=== PATIENT | female | born 1970 | race Caucasian/White ===

== ENCOUNTER 2020-11-01 01:35 | Inpatient (IN) | payer BC, SELFPAY ==
[2020-11-01] VITALS (14 sets, daily range): BP systolic 163–213; BP diastolic 87–105; PULSE 87–99; RESP 16–18; TEMP 36.2–37; O2SAT 93–100; BMI 45.1
--- NOTE | ~2020-11-01 | XR_ITS ---
EXAMINATION: XR abdomen NG/feed tube insert DATE: 11/01/2020 04:07 INDICATION: Nasogastric tube placement. TECHNIQUE: An upright view of the abdomen was obtained. COMPARISON: CT abdomen and pelvis 11/01/2020 FINDINGS: The lower abdomen is excluded. There is dilated small bowel in the midabdomen. The colon is decompressed. The nasogastric tube tip is in the stomach. IMPRESSION: 1. Nasogastric tube tip in the stomach. 2. Small bowel obstruction. Reviewed, dictated and finalized at location A. EN CLEANER
--- NOTE | ~2020-11-01 | XR_ITS ---
EXAMINATION: XR abdomen/kub 1V DATE: 11/02/2020 07:57 INDICATION: Small bowel obstruction. TECHNIQUE: A supine view of the abdomen on 2 radiographs was obtained. COMPARISON: CT abdomen and pelvis 11/01/2020 FINDINGS: There are no gas-filled dilated loops of bowel. There is a moderate volume of stool in the colon. The nasogastric tube tip is in the stomach. IMPRESSION: 1. Nonobstructive bowel gas pattern. Reviewed, dictated and finalized at location A. ERN ROOM OPERATOR
--- NOTE | ~2020-11-01 | XR_ITS ---
XR abdomen/kub 1V DATE: 11/04/2020 06:23 INDICATION: Small bowel obstruction TECHNIQUE: Portable supine AP views on September 03, 2021 at 0547 hours COMPARISON: November 03, 2020 upper gastrointestinal series with small bowel series FINDINGS: Radiographic contrast material is noted within the colon. No bowel dilatation or obstructio n is evident. IMPRESSION: No evidence of bowel obstruction Reviewed, dictated and finalized at Location A. Reviewed, dictated and finalized at location A. Y INTERVENTION SCHOOL PSYCHOLOGIST
--- NOTE | ~2020-11-01 | CT_ITS ---
EXAMINATION: CT abdomen pelvis w con DATE: 11/01/2020 03:08 INDICATION: Right upper quadrant abdominal pain. TECHNIQUE: Computed tomography (CT) of the abdomen and pelvis was performed with 100 mL Omnipaque 350 intravenous contrast. Automated exposure control and iterative reconstruction technique were employe d. The dose-length product was 1519.80 mGy-cm. COMPARISON: None. FINDINGS: The visualized portions of the lung bases demonstrate mild atelectasis. No pleural effusion . The heart size is normal. No pericardial effusion. The liver, gallbladder, spleen, pancreas, adrena l glands, and left kidney are normal. There is a 2 mm stone in right kidney. There is diverticulosis of the colon without evidence of diverticulitis. The appendix is normal. There is dilated small bowel with transition point in the lower abdomen is midline. There is a small sliding hiatal hernia. There are no pathologically enlarged lymph nodes. There is trace pelvic ascites. 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 There is moderate thoracic spondylosis and mild lumbar spondylosis. IMPRESSION: 1. Small bowel obstruction with transition point in the lower abdomen at the midline. 2. Small sliding hiatal hernia. Reviewed, dictated and finalized at location A. AU MATIC OPERATOR IMPRESSION: 1. Small bowel obstruction with transition point in the lower abdomen at the mi dline. 2. Small sliding hiatal hernia.
--- NOTE | ~2020-11-01 | XR_ITS ---
. XR UGI water soluble w sbs DATE: 11/03/2020 10:02 INDICATION: Abdominal pain, small bowel obstruction TECHNIQUE: Single contrast upper gastrointestinal series. Serial radiographs of the small bowel. Spot images of the terminal. 0.7 minutes fluoroscopy time DAP: 64.743 COMPARISON: November 01, 2020 CT abdomen pelvis November 03, 2020 KUB FINDINGS: 350 cc Omnipaque contrast material was administered by syringe through the existing nasogas tric tube. By means of administration of the contrast material through an NG tube, the esophagus is not evaluate d. No stricture, mucosal fold thickening, ulceration or intraluminal mass lesion of the stomach is evide nt. The duodenum appears normal. No ulcer is evident. No diverticulum is noted. There is normal transit of contrast material through the small bowel, without evidence of obstruction . Contrast material reaches the colon within 30 minutes. No dilatation, stricture, ulceration or intr aluminal mass lesion is evident. Terminal ileum appears normal. IMPRESSION: No small bowel obstruction Reviewed, dictated and finalized at Location A. Reviewed, dictated and finalized at location A. TABLE OPERATOR IMPRESSION: No small bowel obstruction
--- NOTE | ~2020-11-01 | XR_ITS ---
XR abdomen NG/feed tube rechec INDICATION: Evaluate NG tube position. TECHNIQUE: Limited KUB perform for evaluating NG tube . COMPARISON: 11/01/2020 FINDINGS: NG tube tip in the stomach. Visualized bowel gas pattern is unremarkable. IMPRESSION: 1: NG tube tip in the stomach. Reviewed, dictated and finalized at location B. CONSTRUCTION
--- NOTE | ~2020-11-01 | XR_ITS ---
XR abdomen/kub 1V DATE: 11/03/2020 06:12 INDICATION: Small bowel obstruction TECHNIQUE: Portable supine AP views on November 03, 2020 at 0601 and 0602 hours COMPARISON: November 02, 2020 KUB FINDINGS: NG tube tip overlies the distal stomach. Nonspecific bowel gas pattern without apparent obs truction. Faint calcification overlying the lower pole the right kidney, likely due to the calculus at the lowe r pole the right kidney evident on November 01, 2020 CT abdomen pelvis examination. No visceromegaly or significant abnormal calcification is evident otherwise. IMPRESSION: Nonspecific bowel gas pattern, without apparent obstruction NG tube in distal stomach Small lower pole right renal calcified calculus Reviewed, dictated and finalized at Location A. Reviewed, dictated and finalized at location A. R MAKER
--- NOTE | 2020-11-01 01:39 | ED.ABDPAIN ---
HPI - Abdominal Pain General Chief Complaint: Abdominal Pain Stated Complaint: abd pain Time Seen by Provider: 11/01/20 01:40 History of Present Illness HPI narrative: RUQ abdominal pain since about 1730 yesterday. Progressively worse since that time. Radiates to umbilicus. Associated with 1 episode of vomiting. No prior episodes. Strong family h/o gall bladder disease. No fever, chills, CP, SOB, cough, congestion. Related Data Home Medications Medication Instructions Recorded Confirmed No Home Medications 11/01/20 11/01/20 Allergies Allergy/AdvReac Type Severity Reaction Status Date / Time adhesive AdvReac Unknown RASH Verified 11/01/20 05:16 Review of Systems Review of Systems: All systems reviewed & are unremarkable except as noted in HPI and below Constitutional: Constitutional: Denies chills, Denies fever(s) and Denies weakness Eyes: Eyes: Reports no additional eye complaints ENT: Reports system reviewed and no additional complaints, except as documented Cardiovascular: Cardiovascular: Denies chest pain Respiratory: Respiratory: Denies dyspnea Gastrointestinal: Gastrointestinal: Reports abdominal pain, Denies constipation, Denies diarrhea, Reports nausea and Reports vomiting Genitourinary: Genitourinary: Denies hematuria and Denies dysuria Neurologic: Denies dizziness and Denies weakness PMF Surgical History Surgical History (Updated 11/01/20 @ 01:54 by Campbell Jaimes MD) Previous section Family History Family History Father Hypertension Family history of chronic obstructive pulmonary disease Family history of diabetes mellitus in first degree relative Family history of heart disease in male family member before age 55 Mother Cerebrovascular accident Family history of heart disease in male family member before age 55 Other Family history of allergic disorder Social History Social History Smoking status: Never smoker Alcohol intake: former Drinks per week: 1 Substance use: never Gender identity (if verbalized by the patient): Female Sexual Orientation (if Verbalized by the Patient): Straight or Heterosexual Spiritual care concerns: No Exam Const: General: no acute distress, alert and uncomfortable Nutritional Appearance: obese Orientation/consciousness: patient oriented x3 HENMT: Head: normal to inspection Neck: Neck: normal visual inspection Resp: Effort & Inspection: normal respiratory effort Auscultation: clear to auscultation bilaterally Cardio: Rate: regular rate Rhythm: regular rhythm GI: Inspection: non-distended GI Palp: Yes Soft to palpation and No Tenderness to palpation present (GI) Skin: General skin exam: normal color Neuro: General: patient oriented x3, moves all extremities, no focal motor deficits and CN's II-XI intact bilaterally Speech: normal speech Gait exam (Neuro): Normal gait present Extrem: General: normal to inspection Course Vital Signs Vital signs: Vital Signs Temperature 36.9 C 11/01/20 01:42 Pulse Rate 99 11/01/20 01:42 Respiratory Rate 16 11/01/20 01:42 Blood Pressure 213/105 H 11/01/20 01:42 Pulse Oximetry 97 11/01/20 01:42 Temperature 37.0 C 11/01/20 04:40 Pulse Rate 95 11/01/20 04:40 Respiratory Rate 18 11/01/20 04:40 Blood Pressure 166/88 H 11/01/20 04:40 Pulse Oximetry 99 11/01/20 04:40 MDM - Abdominal Pain Differential Diagnosis Differential diagnosis: Likely abdominal pain, acute appendicitis, constipation, diverticulitis, pancreatitis, small bowel obstruction and other (cholecystitis) Medical Records Attestation: I reviewed the patient's medical records. Lab Data Attestation: I reviewed the patient's lab results. Result diagrams: 11/01/20 02:24 11/01/20 02:24 Labs: Lab Results 11/01/20 11/01/20 11/01/20 Range/Units 02:24 02:24 02:24 WBC 9.5 (4.5-
[2020-11-01] MEDS: ONDANSETRON INJ 4 MG/2 ML VIAL IV PUSH (02:02)
[2020-11-01] MEDS: fentaNYL CITRATE INJ (*CRX) 100 MCG/2 ML VIAL 50 MCG IV PUSH (02:02)
[2020-11-01 02:34] LABS: Basophils Absolute Auto 0.1 K/mm3 (0.0-0.1); Basophils Percent Auto 0.5 % (0.2-1.2); Eosinophils Absolute Auto 0.2 K/mm3 (0-0.3); Eosinophils Percent Auto 1.9 % (0-4.4); Hematocrit 44.1 % (37.0-47.0); Hemoglobin 14.2 g/dL (12.0-15.0); Immature Granulocyte Absolute 0.03 K/mm3 (0.00-0.031); Immature Granulocyte Percent A 0.3 % (0-0.5); Lymphocytes Absolute Auto 0.99 K/mm3 (0.9-3.2); Lymphocytes Percent Auto 10.4 % (18.3-44.2); Mean Corpuscular HGB Conc 32.2 g/dl (32-36); Mean Corpuscular Hemoglobin 29.2 pg (26-34); Mean Corpuscular Volume 90.7 fl (80-100); Mean Platelet Volume 12.4 fl (7.4-10.4); Monocytes Absolute Auto 0.6 K/mm3 (0.1-0.6); Monocytes Percent Auto 5.8 % (2.6-8.5); Neutrophils Absolute Auto 7.7 K/mm3 (1.3-6.7); Neutrophils Percent Auto 81.1 % (45.5-73.1); Platelet Count Result 168 k/mm3 (150-375); Red Blood Count 4.86 M/mm3 (4.2-5.4); Red Cell Distribution Width 14.9 % (11.5-14.5); White Blood Count 9.5 K/mm3 (4.5-10.0)
[2020-11-01 02:50] LABS: Alanine Aminotransferase 31 U/L (4-35); Albumin Level 3.7 g/dL (3.5-5.1); Alkaline Phosphatase 99 U/L (38-126); Anion Gap 0 mmol/L (8-16); Aspartate Amino Transferase 27 U/L (14-36); Bilirubin,Total 0.3 mg/dL (0.2-1.3); Blood Urea Nitrogen 13 mg/dL (7-17); Carbon Dioxide 30 mmol/L (22-30); Chloride 107 mmol/L (98-107); Estimated CRCL calculation 101 ml/min; Estimated Glomerular Filt Rate > 60; Glucose 159 mg/dL (65-105); Lipase 91 U/L (23-300); Potassium 4.3 mmol/L (3.4-5.0); Sodium 137 mmol/L (137-145)
[2020-11-01 02:54] LABS: Add Urine Microscopic? YES; Amorphous Sediment Urine Few; Appearance Urine Cloudy (Clear); Bacteria Urine Trace /hpf; Bilirubin Urine Negative (Negative); Blood Urine 1+ (Negative); Color Urine Red (Yellow); Glucose Urine UA Negative (Negative); Ketones Urine Negative (Negative); Leukocyte Esterase Ur Negative LEU/UL (Negative); Mucus Urine Rare /lpf; Nitrate Urine Negative (Negative); Protein Urine 1+ mg/dL (Negative); Specific Grav Ur 1.017 (1.001-1.035); Squamous Epithelial Cell Urine Few /hpf (Few); Urobilinogen Urine Negative mg/dL (<2.0); WBC Urine 0-3 /hpf
[2020-11-01] MEDS: MORPHINE SULFATE (*CRX) 4 MG/ML INJ IV PUSH ×4 (03:49→21:15)
--- NOTE | 2020-11-01 04:06 | PC.NURSE ---
Advanced NG to 55 instead of 50.
--- NOTE | 2020-11-01 04:40 | ADMGEN ---
This patient, Ginger Delgado, was admitted to [facility] Surg Room 313-01. Patient/family oriented to hospital policies and general routines including ID bracelet, bed and alarms, visiting hours, pain management, procedures, bathroom and other care routines, personal items, smoking policy, room service/diet, and visiting hours. Information on how to activate the Rapid Response Team has been discussed. Patient/Family are encouraged to report perceived risks to care and to ask questions if they do not understand what they are told or what they should do.
[2020-11-01] MEDS: LACTATED RINGERS 1,000 ML 125 ML IV CONT ×3 (04:43→20:05)
--- NOTE | 2020-11-01 08:58 | PM.IMHP ---
H&P: HPI History of Present Illness Date/Time: 11/01/20 08:58 Chief Complaint: Abdominal pain, vomiting Narrative: Ginger Delgado is a 50 year old female with no significant past medical history, who presented to the emergency department with complaints of abdominal pain. She reports a sudden onset of mild abdominal pain yesterday afternoon. The pain continued to worsen and became severe. She also had associated nausea with vomiting x2. Due to the unrelenting pain, she presented to the ER for further evaluation. CT scan of abdomen and pelvis showed a small bowel obstruction. Labs were unremarkable. Our service was contacted for the findings of a small bowel obstruction. She is now admitted to the hospital in this setting. An NG tube has already been placed with a KUB confirming placement. The patient is seen on the medical floor now. She reports still having some lower abdominal pain that has been improving after receiving IV analgesics. Reports her nausea has subsided. Reports an improvement in her overall bloating. She reports flatus this morning, and her last bowel movement was yesterday morning around 9:00 a.m.. It was normal for her. No other complaints at this time. Urinalysis in the ER showed gross hematuria. She denies having any hematuria, dysuria, frequency, urgency, nocturia, or flank pain. She denies having menstrual cycle. Review of Systems Review of Systems: All systems reviewed & are unremarkable except as noted in HPI and below Constitutional: Constitutional: Reports as per HPI, Denies chills, Denies fatigue, Denies fever(s), Denies headache(s) and Denies weakness Eyes: Eyes: Reports no additional eye complaints and Denies change in vision ENT: Reports system reviewed and no additional complaints, except as documented, Denies dysphagia and Denies hearing loss Cardiovascular: Cardiovascular: Reports no additional cardiovascular complaints, Denies chest pain, Denies leg edema, Denies lightheadedness and Denies radiating jaw, neck or arm pain Respiratory: Respiratory: Reports no additional respiratory complaints, Denies cough, Denies dyspnea and Denies wheezing Gastrointestinal: Gastrointestinal: Reports as per HPI, Reports no additional gastrointestinal complaints, Reports abdominal pain, Denies melena, Reports bloating (mild), Denies hematochezia, Denies change in bowel habits, Denies diarrhea, Reports nausea, Reports vomiting and Denies hematemesis Genitourinary: Genitourinary: Denies hematuria and Denies dysuria Musculoskeletal: Musculoskeletal: Reports no additional musculoskeletal complaints, Denies abnormal gait, Denies deformity, Denies joint swelling, Denies numbness and Denies tingling Integumentary/Breasts: Skin/Breast: Denies rash and Denies wounds Neurologic: Reports system reviewed and no additional complaints, except as documented, Denies abnormal gait, Denies dizziness, Denies headache(s), Denies numbness, Denies tingling and Denies weakness Psychiatric: Psychiatric: Reports no additional psychiatric complaints, Denies anxiety and Denies depression [facility] Past Medical History Medical History Obesity, morbid, BMI 40.0-49.9 Surgical History Surgical History History of dilatation and curettage History of excision of mass 2012 - Excision of RUQ abdominal wall lipoma. History of partial hysterectomy Open partial hysterectomy History of tonsillectomy History of tubal ligation Previous section x 4 Family History Family History Father Hypertension Family history of chronic obstructive pulmonary disease Family history of diabetes mellitus in first degree relative Family history of heart disease in male family member before age 55 Mother Cerebrovascular accident Family history of heart disease in male family member marcin
[2020-11-01] MEDS: ENOXAPARIN 40 MG/0.4 ML SYRINGE SUB-Q (11:48)
--- NOTE | 2020-11-01 14:07 | PM.PNGS ---
Progress Note: A&P Assessment and Plan (1) SBO (small bowel obstruction): Code(s): K56.609 - Unspecified intestinal obstruction, unspecified as to partial versus complete obstruction Status: Acute Assessment and Plan: After reviewing both her CT scan and her KUB independently this morning, it does appear she has a small bowel obstruction. The NG tube is barely in the stomach. I will go ahead and advance that another 6 in. There is very little coming out of the NG tube. She may need to have NG irrigation as well. Will start her on prophylactic dose of Lovenox as well. Continue IV fluids and get patient up out of bed today. Try to do some walking. Continue to follow daily KUBs and lab work. I explained to her that usually these do resolve with nonsurgical treatment but occasionally this does require laparotomy and adhesiolysis for correction of the small-bowel obstruction. She understands and agrees with the plan of management. (2) Obesity, morbid, BMI 40.0-49.9: Code(s): E66.01 - Morbid (severe) obesity due to excess calories Status: Chronic (3) Elevated blood pressure reading: Code(s): R03.0 - Elevated blood-pressure reading, without diagnosis of hypertension Status: Acute Assessment and Plan: 1 reading quite high but has been borderline elevated since. Probably would benefit from outpatient management of hypertension. Subjective Subjective Date/Time Seen: 11/01/20 14:07 Patient reports: still having pain, flatus, no bowel movement, nausea and vomiting Interval history: Patient is a 50-year-old woman who is had multiple C-sections as well as a tubal ligation in the past. She started having abdominal pain in the right upper quadrant that moved to the epigastrium and then down to the infraumbilical area. The pain started last night about 530. It came on very abruptly. She had a couple of episodes of vomiting. She came to the emergency room where she was noted to have some tenderness. Her white count was 9500. CT scan showed evidence of a small-bowel obstruction. NG tube has been placed but very little has come out since it was placed early this morning. She does feel less bloated and has had some flatus. No BM since yesterday. She is admitted now for evaluation and management of abdominal pain with small-bowel obstruction. Review of Systems Constitutional: Constitutional: Denies chills and Denies fever(s) Cardiovascular: Cardiovascular: Denies chest pain, Denies diaphoresis, Denies dyspnea and Denies paroxysmal nocturnal dyspnea Respiratory: Respiratory: Denies chest congestion, Denies cough and Denies dyspnea Integumentary/Breasts: Skin/Breast: Denies lesions and Denies rash Exam Const: General: comfortable, no acute distress, alert and awake; No confusion Nutritional Appearance: obese Orientation/consciousness: patient oriented x3 and No confusion GI: Inspection: distended and scar (Pfannenstiel incision scar) GI Palp: Yes Soft to palpation, Yes Tenderness to palpation present (GI) (Lower abdomen, generalized), No Guarding due to palpation present (GI), No Hernia present, No Palpable mass present and No Rebound tenderness present Auscultation: absent bowel sounds Neuro: General: patient oriented x3, no focal motor deficits and No confusion Extrem: General: no calf tenderness and no edema Psych: Affect: normal affect Insight: Good insight present (Psych) Judgement: Good judgement present (Psych) Objective Data Vital Signs Vital Signs: Vital Signs - 24 hr 11/01/20 01:42 11/01/20 02:06 11/01/20 02:15 Temperature 36.9 C Pulse Rate 99 Respiratory Rate 16 Blood Pressure 213/105 H Pulse Oximetry 97 99 97 11/01/20 02:16 11/01/20 02:21 11/01/20 02:47 Temperature Pulse Rate Respiratory Rate Blood Pressure 163/89 H Pulse Oximetry 96 98 100 11/01/20 03:14 11/01/20 03:17 11/01/20 03:30 Temperature Pulse Rate 87 Respiratory
[2020-11-01] MEDS: FAMOTIDINE 20 MG/2 ML VIAL IV PUSH (20:01)
[2020-11-02] MEDS: LACTATED RINGERS 1,000 ML 125 ML IV CONT (03:50)
[2020-11-02] MEDS: IBUPROFEN IV 800 MG/200 ML 800 MG/200 ML BAG 400 MG IVPB ×3 (04:03→23:24)
[2020-11-02 06:00] VITALS: BP 158/90; PULSE 88; RESP 20; TEMP 36.6; O2SAT 97
[2020-11-02 06:42] LABS: Hematocrit 43.1 % (37.0-47.0); Hemoglobin 13.8 g/dL (12.0-15.0); Mean Corpuscular Hemoglobin 28.6 pg (26-34); Mean Corpuscular Volume 89.2 fl (80-100); Mean Platelet Volume 12.4 fl (7.4-10.4); Platelet Count Result 171 k/mm3 (150-375); Red Blood Count 4.83 M/mm3 (4.2-5.4); Red Cell Distribution Width 14.7 % (11.5-14.5); White Blood Count 9.1 K/mm3 (4.5-10.0)
[2020-11-02 06:50] LABS: Anion Gap 5 mmol/L (8-16); Blood Urea Nitrogen 9 mg/dL (7-17); Carbon Dioxide 29 mmol/L (22-30); Chloride 104 mmol/L (98-107); Estimated CRCL calculation 104 ml/min; Estimated Glomerular Filt Rate > 60; Glucose 122 mg/dL (65-105); Potassium 3.9 mmol/L (3.4-5.0); Sodium 138 mmol/L (137-145)
[2020-11-02] MEDS: FAMOTIDINE 20 MG/2 ML VIAL IV PUSH ×2 (08:49→20:21)
[2020-11-02] MEDS: ENOXAPARIN 40 MG/0.4 ML SYRINGE SUB-Q (08:49)
--- NOTE | 2020-11-02 11:06 | PM.PNGS ---
Progress Note: A&P Assessment and Plan (1) SBO (small bowel obstruction): Code(s): K56.609 - Unspecified intestinal obstruction, unspecified as to partial versus complete obstruction Status: Acute Assessment and Plan: improving significantly radiographically. Pain is much better but not gone. No flatus or BM yesterday or today. Less distended but difficult to tell as patient is morbidly obese. No bowel sounds are present. Will continue present treatment of NPO, IV fluids, NG suction. Will recheck plain films labs and exam again tomorrow. Encourage ambulation. Continue prophylactic dose Lovenox. Probably will proceed with water-soluble contrast small bowel series tomorrow. Hopefully small bowel obstruction will resolve without surgery. (2) Obesity, morbid, BMI 40.0-49.9: Code(s): E66.01 - Morbid (severe) obesity due to excess calories Status: Chronic (3) Elevated blood pressure reading: Code(s): R03.0 - Elevated blood-pressure reading, without diagnosis of hypertension Status: Acute Assessment and Plan: Will arrange outpatient follow-up after discharge. Elevated but not requiring emergent treatment. Subjective Subjective Date/Time Seen: 11/02/20 11:06 Patient reports: feels better, pain is less, no flatus, no bowel movement and afebrile Review of Systems Review of Systems: All systems reviewed & are unremarkable except as noted in HPI and below Constitutional: Constitutional: Denies headache(s) Cardiovascular: Cardiovascular: Denies chest pain and Denies dyspnea Respiratory: Respiratory: Denies cough and Denies dyspnea Gastrointestinal: Gastrointestinal: Reports as per HPI, Reports GI cramping ( Less than before), Denies heartburn, Denies nausea and Denies vomiting Neurologic: Denies confusion and Denies headache(s) Exam Const: General: comfortable and no acute distress; No confusion Orientation/consciousness: patient oriented x3 and No confusion GI: Inspection: distended, obesity and scar GI Palp: Yes Soft to palpation, No Tenderness to palpation present (GI), No Guarding due to palpation present (GI), No Hernia present, No Palpable mass present and No Rebound tenderness present Auscultation: absent bowel sounds Neuro: General: patient oriented x3, no focal motor deficits and No confusion Extrem: General: no calf tenderness and no edema Psych: Affect: normal affect Insight: Good insight present (Psych) Judgement: Good judgement present (Psych) Objective Data Vital Signs Vital Signs: Vital Signs - 24 hr 11/01/20 14:00 11/01/20 15:23 11/01/20 22:00 Temperature 36.9 C 36.2 C L Pulse Rate 98 91 Respiratory Rate 18 18 Blood Pressure 170/95 H 191/87 H Pulse Oximetry 99 93 97 11/02/20 06:00 Temperature 36.6 C Pulse Rate 88 Respiratory Rate 20 Blood Pressure 158/90 H Pulse Oximetry 97 Intake/Output Intake/Output: Intake & Output 10/30/20 10/31/20 11/01/20 11/02/20 23:59 23:59 23:59 23:59 Intake Total 2090 1130 Output Total 75 2325 Balance 2015 -5905 Meds/Results Medications: Active Medications Generic Name Dose Route Start Last Admin Trade Name Freq PRN Reason Stop Dose Admin Enoxaparin Sodium 40 mg 11/02/20 09:00 11/02/20 08:49 Enoxaparin 40 Mg/0.4 Ml Syringe SUB-Q 40 mg DAILY ARCHANA Administration Famotidine 20 mg 11/01/20 21:00 11/02/20 08:49 Famotidine 20 Mg/2 Ml Vial IV PUSH 20 mg Q12HR ARCHANA Administration Lactated Ringer's 1,000 mls @ 125 mls/hr 11/01/20 03:50 11/02/20 03:50 Lr - Lactated Ringers Iv IV CONT 125 mls/hr .Q8H ARCHANA Administration Ibuprofen 800 mg in 200 mls @ 400 mls/hr 11/01/20 10:06 11/02/20 04:03 Caldolor 800 Mg/200 Ml IVPB 400 mls/hr Q6H PRN Administration Pain Rated 1-3 Morphine Sulfate 4 mg 11/01/20 03:48 11/01/20 21:15 Morphine Sulfate (*Crx) 4 Mg/Ml Inj IV PUSH 4 mg Q2H PRN Administration Pain Rated 7-10 Morphine Sulfa
[2020-11-02] MEDS: KCL 40 MEQ/D5/0.9% SOD CHL 1,000 ML 80 ML IV CONT ×2 (11:52→23:28)
[2020-11-02 14:00] VITALS: BP 177/99; PULSE 82; RESP 20; TEMP 36.3; O2SAT 98
[2020-11-02] MEDS: PHENOL/SOD PHENO SPRAY CHERRY (*BKC) 1 SPRAY MUCOUS MEM (16:50)
[2020-11-02 22:00] VITALS: BP 148/87; PULSE 82; RESP 18; TEMP 36.4; O2SAT 98
[2020-11-03 06:00] VITALS: BP 144/87; PULSE 87; RESP 18; TEMP 35.8; O2SAT 98
[2020-11-03 06:31] LABS: Hematocrit 44.9 % (37.0-47.0); Hemoglobin 14.4 g/dL (12.0-15.0); Mean Corpuscular HGB Conc 32.1 g/dl (32-36); Mean Corpuscular Hemoglobin 28.9 pg (26-34); Mean Platelet Volume 12.7 fl (7.4-10.4); Platelet Count Result 167 k/mm3 (150-375); Red Blood Count 4.99 M/mm3 (4.2-5.4); Red Cell Distribution Width 14.7 % (11.5-14.5); White Blood Count 7.3 K/mm3 (4.5-10.0)
[2020-11-03 06:41] LABS: Anion Gap 3 mmol/L (8-16); Blood Urea Nitrogen 8 mg/dL (7-17); Calcium 9.6 mg/dL (8.4-10.2); Carbon Dioxide 32 mmol/L (22-30); Chloride 106 mmol/L (98-107); Estimated CRCL calculation 93 ml/min; Estimated Glomerular Filt Rate > 60; Glucose 110 mg/dL (65-105); Potassium 3.8 mmol/L (3.4-5.0); Sodium 141 mmol/L (137-145)
[2020-11-03 08:00] VITALS: PULSE 87; RESP 18; O2SAT 98
--- NOTE | 2020-11-03 08:13 | PM.PNGS ---
Progress Note: A&P Assessment and Plan (1) SBO (small bowel obstruction): Code(s): K56.609 - Unspecified intestinal obstruction, unspecified as to partial versus complete obstruction Status: Acute Assessment and Plan: Continues to improve. Will get water-soluble contrast upper GI small-bowel follow-through today. If contrast passes through with normal transit, will DC NG and try liquids. (2) Obesity, morbid, BMI 40.0-49.9: Code(s): E66.01 - Morbid (severe) obesity due to excess calories Status: Chronic (3) Elevated blood pressure reading: Code(s): R03.0 - Elevated blood-pressure reading, without diagnosis of hypertension Status: Acute Assessment and Plan: Continue to monitor. Subjective Subjective Date/Time Seen: 11/03/20 08:13 Patient reports: no new complaints, feels better, pain is less, no flatus, no bowel movement and afebrile Review of Systems Review of Systems: All systems reviewed & are unremarkable except as noted in HPI and below Cardiovascular: Cardiovascular: Denies chest pain and Denies dyspnea Respiratory: Respiratory: Denies cough and Denies dyspnea Gastrointestinal: Gastrointestinal: Reports as per HPI Neurologic: Denies confusion and Denies headache(s) Exam Const: General: comfortable and no acute distress; No confusion Orientation/consciousness: patient oriented x3 and No confusion GI: Inspection: obesity GI Palp: Yes Soft to palpation, No Tenderness to palpation present (GI), No Guarding due to palpation present (GI) and No Rebound tenderness present Auscultation: Hypoactive bowel sounds present Neuro: General: patient oriented x3, no focal motor deficits and No confusion Extrem: General: no calf tenderness and no edema Psych: Affect: normal affect Insight: Good insight present (Psych) Judgement: Good judgement present (Psych) Objective Data Vital Signs Vital Signs: Vital Signs - 24 hr 11/02/20 14:00 11/02/20 22:00 11/03/20 06:00 Temperature 36.3 C L 36.4 C 35.8 C L Pulse Rate 82 82 87 Respiratory Rate 20 18 18 Blood Pressure 177/99 H 148/87 H 144/87 H Pulse Oximetry 98 98 98 Intake/Output Intake/Output: Intake & Output 10/31/20 11/01/20 11/02/20 11/03/20 23:59 23:59 23:59 23:59 Intake Total 7685 2730 Output Total 75 3416 9999 Balance 2582 -0761 -4158 Meds/Results Medications: Active Medications Generic Name Dose Route Start Last Admin Trade Name Freq PRN Reason Stop Dose Admin Enoxaparin Sodium 40 mg 11/02/20 09:00 11/02/20 08:49 Enoxaparin 40 Mg/0.4 Ml Syringe SUB-Q 40 mg DAILY ARCHANA Administration Famotidine 20 mg 11/01/20 21:00 11/02/20 20:21 Famotidine 20 Mg/2 Ml Vial IV PUSH 20 mg Q12HR ARCHANA Administration Ibuprofen 800 mg in 200 mls @ 400 mls/hr 11/01/20 10:06 11/02/20 23:54 Caldolor 800 Mg/200 Ml IVPB Infused Q6H PRN Infusion Pain Rated 1-3 Potassium Chloride/Dextrose/Sod Cl 1,000 mls @ 80 mls/hr 11/02/20 11:05 11/02/20 23:28 Kcl 40 Meq/D5ns IV CONT 80 mls/hr .[id number] ARCHANA Administration Morphine Sulfate 4 mg 11/01/20 03:48 11/01/20 21:15 Morphine Sulfate (*Crx) 4 Mg/Ml Inj IV PUSH 4 mg Q2H PRN Administration Pain Rated 7-10 Morphine Sulfate 2 mg 11/01/20 08:56 Morphine Sulfate (*Crx) 2 Mg/Ml Inj IV PUSH Q2H PRN Pain Rated 4-6 Ondansetron HCl 4 mg 11/01/20 03:48 Ondansetron Inj 4 Mg/2 Ml Vial IV PUSH Q4H PRN Nausea Phenol 1 spray 11/02/20 14:41 11/02/20 16:50 Phenol/Sod Pheno [place] (*Bkc) MUCOUS MEM 1 spray PRN PRN Administration Sore Throat Radiology Results: ITS Impressions Abdomen/Pelvis CT 11/01/20 07:07 IMPRESSION: 1. Small bowel obstruction with transition point in the lower abdomen at the midline. 2. Small sliding hiatal hernia. Labs Labs: Laboratory Results - last 24 hr 11/03/20 11/03/20 05:53 05:53 WBC 7.3 RBC 4.99 Hgb 14.4 Hct
[2020-11-03] MEDS: FAMOTIDINE 20 MG/2 ML VIAL IV PUSH ×2 (08:51→22:22)
[2020-11-03] MEDS: ENOXAPARIN 40 MG/0.4 ML SYRINGE SUB-Q (08:51)
[2020-11-03 14:00] VITALS: BP 147/80; PULSE 89; RESP 20; TEMP 36.7; O2SAT 99
--- NOTE | 2020-11-03 14:29 | PC.NURSE ---
Dr. Mondragon called and said Small Bowel follow through was normal. Ok to remove NG and to give clear liquid diet.
--- NOTE | 2020-11-03 14:53 | PC.NURSE ---
NG removed [id number]
[2020-11-03] MEDS: KCL 40 MEQ/D5/0.9% SOD CHL 1,000 ML 80 ML IV CONT (16:00)
[2020-11-03 20:40] VITALS: PULSE 102; RESP 20; O2SAT 98
[2020-11-03 22:00] VITALS: BP 142/78; PULSE 102; RESP 20; TEMP 36.8; O2SAT 98
[2020-11-04] MEDS: KCL 40 MEQ/D5/0.9% SOD CHL 1,000 ML 80 ML IV CONT (04:24)
[2020-11-04 05:46] LABS: Hematocrit 43.3 % (37.0-47.0); Mean Corpuscular HGB Conc 32.3 g/dl (32-36); Mean Corpuscular Hemoglobin 29.4 pg (26-34); Mean Platelet Volume 12.4 fl (7.4-10.4); Platelet Count Result 171 k/mm3 (150-375); Red Blood Count 4.76 M/mm3 (4.2-5.4); White Blood Count 7.1 K/mm3 (4.5-10.0)
[2020-11-04 05:50] VITALS: BP 135/86; PULSE 80; RESP 18; TEMP 36.7; O2SAT 98
[2020-11-04 05:57] LABS: Anion Gap 2 mmol/L (8-16); Blood Urea Nitrogen 8 mg/dL (7-17); Calcium 9.3 mg/dL (8.4-10.2); Carbon Dioxide 31 mmol/L (22-30); Chloride 107 mmol/L (98-107); Estimated CRCL calculation 93 ml/min; Estimated Glomerular Filt Rate > 60; Glucose 114 mg/dL (65-105); Sodium 140 mmol/L (137-145)
[2020-11-04] MEDS: FAMOTIDINE 20 MG TABLET PO (08:51)
[2020-11-04] MEDS: ENOXAPARIN 40 MG/0.4 ML SYRINGE SUB-Q (08:51)
--- NOTE | 2020-11-04 09:46 | PC.NURSE ---
Tolerated full liquids well. Advancing to low fiber diet.
--- NOTE | 2020-11-04 10:42 | PM.DS ---
DS: Admitting Diagnosis Admitting Diagnosis Admitting Diagnosis: Small-bowel obstruction morbid obesity elevated blood pressure DS: Discharge Diagnosis Discharge Diagnosis (1) SBO (small bowel obstruction): Code(s): K56.609 - Unspecified intestinal obstruction, unspecified as to partial versus complete obstruction Status: Acute Assessment and Plan: resolved with nonsurgical treatment (2) Obesity, morbid, BMI 40.0-49.9: Code(s): E66.01 - Morbid (severe) obesity due to excess calories Status: Chronic (3) Elevated blood pressure reading: Code(s): R03.0 - Elevated blood-pressure reading, without diagnosis of hypertension Status: Acute Assessment and Plan: improved as her present illness improved but patient will need outpatient follow-up with her primary care physician, Dr. Leyva. DS: Summary Hospital Course Reason for hospitalization: Small-bowel obstruction Hospital Course: patient is a 50-year-old woman with really no significant past medical history and no significant surgical history. She has had multiple C-sections through a lower abdominal incision. She presented to the emergency room at night on October 31. She was noted to have complaints of diffuse abdominal pain nausea and vomiting. CT scan showed evidence of a small-bowel obstruction. Patient had nasogastric tube placement and was given IV fluid resuscitation and analgesics. Serial abdominal exams as well as imaging and labs were performed each day. Slowly the patient improved. Her pain resolved and her abdominal exam improved. She underwent an upper GI small-bowel follow-through with water-soluble contrast on November 03. Transit time was normal and there was no evidence of obstruction. Her NG tube was removed and she was started on full liquids. She tolerated these well. On November 04, she was feeling back to normal although fatigued. She was advanced to solid food and was able to be discharged later in the day. She did have an elevated blood pressure throughout her hospital stay and was advised to follow up with her primary care physician, Dr. Leyva, as an outpatient within the next couple of weeks. She is discharged today in much improved condition. Status at Discharge Functional status at discharge: independent ambulation Overall status at discharge: patient is back to baseline Time Spent with Patient Time attestation: Total time spent providing and/or coordinating discharge services: Exam Const: General: comfortable and no acute distress; No confusion Orientation/consciousness: patient oriented x3 and No confusion GI: Inspection: non-distended and obesity GI Palp: Yes Soft to palpation, No Tenderness to palpation present (GI), No Guarding due to palpation present (GI), No Hernia present, No Palpable mass present and No Rebound tenderness present Auscultation: normal bowel sounds Neuro: General: patient oriented x3, no focal motor deficits and No confusion Extrem: General: no calf tenderness and no edema Psych: Affect: normal affect Insight: Good insight present (Psych) Judgement: Good judgement present (Psych) DS: Data Data Completed and Pending Labs on day of discharge: Labs from last 24 hours 11/04/20 11/04/20 05:34 05:34 WBC 7.1 RBC 4.76 Hgb 14.0 Hct 43.3 MCV 91.0 MCH 29.4 MCHC 32.3 RDW 15.0 H Plt Count 171 MPV 12.4 H Sodium 140 Potassium 4.0 Chloride 107 Carbon Dioxide 31 H Anion Gap 2 L BUN 8 Creatinine 0.90 Estim Creat Clear Calc 93 Estimated GFR > 60 Glucose 114 H Calcium 9.3 Discharge Plan Discharge Attending physician on discharge: Son Mondragon Discharging Clinician: Son Mondragon Anticipated Discharge Date/Time: 11/04/20 10:48 Patient Disposition: Home, Self-Care Activity: as tolerated Diet: as tolerated and regular Discharge Instructions: Ambulate 3-4 x per day and as to
== END 2020-11-04 12:00 | disposition home or self-care (01) | DRG 389 ==
LOC: ANHED 02:01 → ANH3MEDSUR 04:13
PROVIDERS: Admitting Provider Surgery; Emergency Provider Emergency Medicine; PCP Internal Medicine; Visit Provider Surgery
DX: K56.609 Unspecified intestinal obstruction, unspecified as to partial versus complete obstruction (principal); Z68.42 Body mass index [BMI] 45.0-49.9, adult; E66.01 Morbid (severe) obesity due to excess calories; R03.0 Elevated blood-pressure reading, without diagnosis of hypertension; Z98.890 Other specified postprocedural states
CPT/HCPCS: 36415; 74018; 74177; 74240; 74248; 80048; 80053; 81001; 83690; 85025; 85027; 96374; 96375; 99285; A9270; J1650; J1741; J2270; J2405; J3010; J3480; J7120; Q9967

== ENCOUNTER → 2021-05-21 17:00 | Outpatient (CLI) | payer BC, SELFPAY ==
--- NOTE | ~2021-05-21 | MR_ITS ---
EXAMINATION: MR knee LT wo con DATE: 05/21/2021 18:02 INDICATION: Left knee pain and swelling. TECHNIQUE: Magnetic resonance imaging (MRI) of the left knee was performed without intravenous contra st. Sequences included axial PD-weighted FS FSE, coronal PD-weighted FSE and PD-weighted FS FSE, sagi ttal PD-weighted FSE, and sagittal T2-weighted FS FSE. COMPARISON: None. FINDINGS: Medial compartment: There is maceration of the medial meniscus. There is full-thickness cartilage loss of tibial condyle involving the central and medial articular surface with cortical remodeling. There is full-thickness cartilage loss of femoral condyle involving the central and medial articular surface with cortical re modeling. Osteophytes are noted. Lateral compartment: The lateral meniscus is normal. There is shallow partial-thickness cartilage loss of femoral condyle and tibial condyle. Marginal osteophytes are noted. Patellofemoral compartment: There is shallow partial-thickness cartilage loss of patella. There is deep partial thickness cartila ge loss of central trochlea. Marginal osteophytes are noted. Ligaments and tendons: Anterior cruciate ligament is enlarged with increased signal intensity, likely mucoid degeneration. P osterior cruciate ligament is similarly thickened with increased signal intensity, likely mucoid dege neration. There are changes of prior sprains of medial collateral ligament and fibular collateral lig ament characterized by increased signal intensity proximally. There is mild patellar tendinopathy. Fluid: There is a small knee joint effusion. There is a moderate-sized Drummond's cyst. There is moderate super ficial infrapatellar bursitis. IMPRESSION: 1. Severe chondrosis of medial compartment, moderate chondrosis of patellofemoral compartment, and mi ld chondrosis of lateral compartment. 2. Maceration of medial meniscus. 3. Small knee joint effusion. 4. Moderate-sized Drummond's cyst. 5. Thickening and increased signal in the anterior and posterior cruciate ligaments, likely mucoid de generation. Reviewed, dictated and finalized at location A. IMPRESSION: 1. Severe chondrosis of medial compartment, moderate chondrosis of patellofemor al compartment, and mild chondrosis of lateral compartment. 2. Maceration of medial meniscus. 3. Small knee joint effusion. 4. Moderate-sized Drummond's cyst. 5. Thickening and increased signal in the anterior and posterior cruciate ligam ents, likely mucoid degeneration.
== END ==
PROVIDERS: PCP Internal Medicine; Visit Provider Internal Medicine
DX: M25.562 Pain in left knee (principal); M22.2X2 Patellofemoral disorders, left knee; S83.242A Other tear of medial meniscus, current injury, left knee, initial encounter; M25.462 Effusion, left knee; M71.22 Synovial cyst of popliteal space [Baker], left knee
CPT/HCPCS: 73721

== ENCOUNTER 2021-10-22 20:57 | Emergency (ER) | payer BC, SELFPAY ==
--- NOTE | ~2021-10-22 | CT_ITS ---
EXAMINATION: CT abdomen pelvis wo con DATE: 10/23/2021 00:58 INDICATION: Right abdominal pain. TECHNIQUE: Computed tomography (CT) of the abdomen and pelvis was performed without intravenous contr ast. Automated exposure control and iterative reconstruction technique were employed. The dose-length product was 1358.24 mGy-cm. COMPARISON: CT abdomen and pelvis 11/01/2020 FINDINGS: The visualized portions of the lung bases demonstrate mild atelectasis. No pleural effusion . The heart size is normal. No pericardial effusion. There is a small sliding hiatal hernia. The live r, spleen, gallbladder, pancreas, adrenal glands, and left kidney are normal. There is a 3 mm stone i n right kidney. There are scattered diverticula in the colon. There is fat stranding around a diverti culum of sigmoid colon with local bowel wall thickening, consistent with diverticulitis. The appendix is normal. There are no pathologically enlarged lymph nodes. There is no free intraperitoneal fluid. There is moderate thoracic spondylosis and mild lumbar spondylosis. There are chronic bilateral L5 p ars defects. IMPRESSION: 1. Acute sigmoid diverticulitis. No perforation or abscess. Reviewed, dictated and finalized at location E. MAKER
[2021-10-22 21:00] VITALS: BP 157/129; PULSE 87; RESP 16; TEMP 35.9; O2SAT 99
[2021-10-22 22:29] VITALS: BP 173/105; PULSE 82; RESP 18; O2SAT 100
[2021-10-22 23:10] LABS: Basophils Absolute Auto 0.1 K/mm3 (0.0-0.1); Basophils Percent Auto 0.6 % (0.2-1.2); Eosinophils Absolute Auto 0.3 K/mm3 (0-0.3); Eosinophils Percent Auto 2.2 % (0-4.4); Hematocrit 44.4 % (37.0-47.0); Hemoglobin 14.1 g/dL (12.0-15.0); Immature Granulocyte Absolute 0.05 K/mm3 (0.00-0.031); Immature Granulocyte Percent A 0.4 % (0-0.5); Lymphocytes Percent Auto 13.1 % (18.3-44.2); Mean Corpuscular HGB Conc 31.8 g/dl (32-36); Mean Corpuscular Hemoglobin 29.6 pg (26-34); Mean Corpuscular Volume 93.3 fl (80-100); Monocytes Absolute Auto 0.7 K/mm3 (0.1-0.6); Neutrophils Absolute Auto 8.9 K/mm3 (1.3-6.7); Neutrophils Percent Auto 77.7 % (45.5-73.1); Platelet Count Result 187 k/mm3 (150-375); Red Blood Count 4.76 M/mm3 (4.2-5.4); Red Cell Distribution Width 14.1 % (11.5-14.5); White Blood Count 11.4 K/mm3 (4.5-10.0)
[2021-10-22 23:12] LABS: Add Urine Microscopic? NO; Appearance Urine Clear (Clear); Bilirubin Urine Negative (Negative); Blood Urine Negative (Negative); Color Urine Straw (Yellow); Glucose Urine UA Negative (Negative); Ketones Urine Negative (Negative); Leukocyte Esterase Ur Negative LEU/UL (Negative); Nitrate Urine Negative (Negative); Protein Urine Negative (Negative); Specific Grav Ur 1.008 (1.001-1.035); Urobilinogen Urine Negative mg/dL (<2.0)
[2021-10-22 23:20] LABS: Alanine Aminotransferase 17 U/L (4-35); Albumin Level 4.4 g/dL (3.5-5.1); Alkaline Phosphatase 100 U/L (38-126); Anion Gap 5 mmol/L (8-16); Aspartate Amino Transferase 20 U/L (14-36); Bilirubin,Total 0.5 mg/dL (0.2-1.3); Blood Urea Nitrogen 17 mg/dL (7-17); Carbon Dioxide 26 mmol/L (22-30); Chloride 104 mmol/L (98-107); Estimated CRCL calculation 72 ml/min; Estimated Glomerular Filt Rate 58; Glucose 111 mg/dL (65-110); Lipase 74 U/L (23-300); Potassium 3.8 mmol/L (3.4-5.0); Sodium 135 mmol/L (137-145)
--- NOTE | 2021-10-23 00:08 | ED.ABDPAIN ---
HPI - Abdominal Pain General Chief Complaint: Abdominal Pain <Siddhartha Wilkes MD - Last Filed: 10/24/21 12:58> Stated Complaint: abdominal pain <Siddhartha Wilkes MD - Last Filed: 10/24/21 12:58> Time Seen by Provider: 10/22/21 22:46 <Siddhartha Wilkes MD - Last Filed: 10/24/21 12:58> Source: patient <Siddhartha Wilkes MD - Last Filed: 10/24/21 12:58> Mode of arrival: ambulatory <Siddhartha Wilkes MD - Last Filed: 10/24/21 12:58> Limitations: no limitations <Siddhartha Wilkes MD - Last Filed: 10/24/21 12:58> History of Present Illness HPI narrative: 51-year-old female History of type 2 diabetes, takes Metformin Complains of a 1 day history of lower abdominal pain that seems to radiate to the right flank She said the pain is fairly continuous but does wax and wane in intensity some She has medication for her knee arthritis but has not taken any of them for this No nausea or vomiting, no diarrhea or constipation, no dysuria or frequency, no hematuria, no fever <Siddhartha Wilkes MD - Last Filed: 10/24/21 12:58> Related Data Allergies/Adverse Reactions: Allergies Allergy/AdvReac Type Severity Reaction Status Date / Time adhesive AdvReac Unknown RASH Verified 10/22/21 21:03 <Siddhartha Wilkes MD - Last Filed: 10/24/21 12:58> Review of Systems Review of Systems: All systems reviewed & are unremarkable except as noted in HPI and below <Siddhartha Wilkes MD - Last Filed: 10/24/21 12:58> Constitutional: Constitutional: Reports no additional constitutional complaints, Denies chills, Denies fever(s) and Denies headache(s) <Siddhartha Wilkes MD - Last Filed: 10/24/21 12:58> Eyes: Eyes: Reports no additional eye complaints and Denies change in vision <Siddhartha Wilkes MD - Last Filed: 10/24/21 12:58> ENT: Denies headache(s) and Denies sore throat <Siddhartha Wilkes MD - Last Filed: 10/24/21 12:58> Cardiovascular: Cardiovascular: Denies chest pain and Denies dyspnea <Siddhartha Wilkes MD - Last Filed: 10/24/21 12:58> Respiratory: Respiratory: Denies cough and Denies dyspnea <Siddhartha Wilkes MD - Last Filed: 10/24/21 12:58> Gastrointestinal: Gastrointestinal: Reports as per HPI <Siddhartha Wilkes MD - Last Filed: 10/24/21 12:58> Genitourinary: Genitourinary: Reports as per HPI and Denies urinary frequency <Siddhartha Wilkes MD - Last Filed: 10/24/21 12:58> Musculoskeletal: Musculoskeletal: Denies deformity, Reports arthralgias, Reports joint swelling and Denies numbness <Siddhartha Wilkes MD - Last Filed: 10/24/21 12:58> Integumentary/Breasts: Skin/Breast: Denies rash and Denies wounds <Siddhartha Wilkes MD - Last Filed: 10/24/21 12:58> Neurologic: Denies headache(s), Denies focal weakness and Denies numbness <Siddhartha Wilkes MD - Last Filed: 10/24/21 12:58> Psychiatric: Psychiatric: Reports no additional psychiatric complaints <Siddhartha Wilkes MD - Last Filed: 10/24/21 12:58> Endocrine: Endocrine: Reports no additional endocrine complaints <Siddhartha Wilkes MD - Last Filed: 10/24/21 12:58> Hematologic/Lymphatic: Hematologic/Lymphatic: Reports no additional hematologic/lymphatic complaints <Siddhartha Wilkes MD - Last Filed: 10/24/21 12:58> Allergic/Immunologic: Allergic/Immunologic: Reports no additional allergic/immunologic complaints <Siddhartha Wilkes MD - Last Filed: 10/24/21 12:58> PMFSH Past Medical History Medical History: Medical History Obesity, morbid, BMI 40.0-49.9 <Siddhartha Wilkes MD - Last Filed: 10/24/21 12:58> Surgical History Surgical History: Surgical History History of dilatation and curettage History of excision of mass 2013 - Excision of RUQ abdominal wall lipoma. History of partial hysterectomy Open partial hysterectomy History of tonsillectomy History of tubal ligation Previous section x 4 <Siddhartha Wilkes MD - Last Filed: 10/24/21 12:58> Family
[2021-10-23 00:37] VITALS: BP 157/98; PULSE 83; RESP 18; O2SAT 100
[2021-10-23] MEDS: KETOROLAC 30 MG/ML VIAL (*BKC) IV PUSH (01:29)
[2021-10-23] MEDS: metroNIDAZOLE 250 MG TABLET 500 MG PO (02:00)
== END 2021-10-23 02:38 | disposition home or self-care (01) ==
PROVIDERS: Emergency Medicine; Emergency Provider Emergency Medicine; PCP Internal Medicine
DX: K57.92 Diverticulitis of intestine, part unspecified, without perforation or abscess without bleeding (principal)
CPT/HCPCS: 36415; 74176; 80053; 81003; 83690; 85025; 96365; 96375; 99284; A9270; J0696; J1885

== ENCOUNTER 2022-04-18 01:51 | Day surgery (SDC) | payer BC, SELFPAY ==
[2022-04-08 13:35] VITALS: BMI 48.0
--- NOTE | 2022-04-17 13:26 | PM.HPGS ---
History of Present Illness History of Present Illness Consent: Risks, benefits, and alternatives have been discussed and questions answered. Patient agrees to proceed with procedure. Chief complaint: IBS-constipation, Diverticulitis, GERD Narrative: Ginger Delgado is a 51 year old female Who was referred for endoscopy and colonoscopy. She has had this persistent and refractory heartburn. She is taking Nexium, [id number] which has not relieved her symptoms. She is also avoiding foods that trigger her symptoms. She will sometimes wake up at night with burning and choking. she has had episodes of food getting stuck when she swallowing. This began a few years ago but has become more frequent. She will need to wait for the food to pass, or sometimes can expectorate, or vomit it back up. Additionally, she has had difficulty with constipation and abdominal cramping. She has a history of having diverticulitis. Review of Systems Review of Systems: All systems reviewed & are unremarkable except as noted in HPI and below PMFSH Past Medical History Medical History Asthma Diabetes History of hypertension Irritable bowel syndrome with constipation Obesity, morbid, BMI 40.0-49.9 Screening mammogram, encounter for Sigmoid diverticulitis Urinary incontinence Surgical History Surgical History History of dilatation and curettage 1996 for miscarriage History of excision of mass 2012 - Excision of RUQ abdominal wall lipoma. History of partial hysterectomy 2005 supracervical hysterectomy History of thyroidectomy 2008 History of tonsillectomy History of tubal ligation 1997 Previous section 1988 1990 1995 1997 Family History Family History Father Hypertension Family history of chronic obstructive pulmonary disease Family history of diabetes mellitus in first degree relative Family history of heart disease in male family member before age 55 Mother Cerebrovascular accident Family history of heart disease in male family member before age 55 Grandparent Hypertension paternal grandmother maternal grandmother Cerebrovascular accident maternal grandmother Family history of heart disease in male family member before age 55 paternal grandmother maternal grandfather maternal grandmother Lung cancer paternal grandfather Breast cancer paternal grandmother Other Family history of allergic disorder Social History Social History Social History: Patient lives at home with her and children. She wishes to be a full code. She does not have a healthcare POA, but designates her to be medical decision maker if needed. Smoking status: Never smoker Alcohol intake: current Drinks per week: 1 Alcohol use details: 1-2 times per month. 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 Gender identity (if verbalized by the patient): Female Sexual Orientation (if Verbalized by the Patient): Straight or Heterosexual Spiritual care concerns: No Meds Home Medications and Allergies Home Medications Medication Instructions Recorded Confirmed Type cholecalciferol (vitamin D3) 1,250 1,250 mcg PO WEEKLY 11/06/21 04/18/22 History mcg (50,000 unit) capsule losartan 50 mg tablet 50 mg PO DAILY 11/06/21 04/18/22 History metformin 500 mg tablet,extended 500 mg PO BID 11/06/21 04/18/22 History release 24 hr naproxen 500 mg tablet 500 mg PO BID PRN Pain 11/06/21 04/18/22 History spironolactone 50 mg tablet 50 mg PO BID 11/06/21 04/18/22 History estradiol 1 mg t
[2022-04-18 09:46] VITALS: BP 151/91; PULSE 82; RESP 16; TEMP 36; O2SAT 100; BMI 46.8
[2022-04-18] MEDS: LACTATED RINGERS 1,000 ML 150 ML IV CONT (09:56)
[2022-04-18 09:58] LABS: Glucose Point of Care 100 mg/dl (65-105)
--- NOTE | 2022-04-18 10:21 | WPDANESEPPF ---
Anes - Initial Pre Proc Eval Procedure: Operation Date: 04/18/22 11:00 Proposed Procedures p Esophagogastroduodenoscopy & Colonoscopy - Jose Ramos MD Date/Time: 04/18/22 10:21 Surgeon: Jose Ramos MD Pre Op Diagnosis: IBS-constipation, Diverticulitis, GERD Patient Data Age: 51 Gender: F Height: 1.6 m Weight: 120 kg Last Vital Signs Temp 36.0 C L 04/18/22 09:46 Pulse 82 04/18/22 09:46 Resp 16 04/18/22 09:46 BP 151/91 H 04/18/22 09:46 Pulse Ox 100 04/18/22 09:46 O2 Del Method Room Air 04/18/22 09:46 Allergies Allergy/AdvReac Type Severity Reaction Status Date / Time adhesive AdvReac Unknown RASH Verified 04/18/22 09:45 Home Medications Medication Instructions Recorded Confirmed Type cholecalciferol (vitamin D3) 1,250 1,250 mcg PO WEEKLY 11/06/21 04/18/22 History mcg (50,000 unit) capsule losartan 50 mg tablet 50 mg PO DAILY 11/06/21 04/18/22 History metformin 500 mg tablet,extended 500 mg PO BID 11/06/21 04/18/22 History release 24 hr naproxen 500 mg tablet 500 mg PO BID PRN Pain 11/06/21 04/18/22 History spironolactone 50 mg tablet 50 mg PO BID 11/06/21 04/18/22 History estradiol 1 mg tablet 1 mg PO DAILY #90 tabs 01/06/22 04/18/22 Rx esomeprazole magnesium 40 mg 40 mg PO DAILY #30 caps 03/20/22 04/18/22 Rx capsule,delayed release (Nexium) polyethylene glycol 3350 17 17 g PO DAILY #238 grams 03/20/22 04/18/22 Rx gram/dose oral powder (Miralax) Laboratory Tests 04/18/22 09:51 POC Capillary Glucose 100 mg/dl mg/dl (65-105) Patient hx anesthesia problems: none Family hx anesthesia problems: none Results Review: All pre-operative results and documents have been reviewed as part of the pre-operative evaluation. [facility] Past Medical History Medical History (Updated 04/17/22 @ 13:28 by Jose Ramos MD) Asthma Diabetes History of hypertension Irritable bowel syndrome with constipation Obesity, morbid, BMI 40.0-49.9 Screening mammogram, encounter for Sigmoid diverticulitis Urinary incontinence Surgical History Surgical History (System 11/21/21 @ 13:27 by Ana María Terry) History of dilatation and curettage 1996 for miscarriage History of excision of mass 2012 - Excision of RUQ abdominal wall lipoma. History of partial hysterectomy 2005 supracervical hysterectomy History of thyroidectomy 2008 History of tonsillectomy History of tubal ligation 1997 Previous section 1988 1990 1995 1997 Family History Family History Father Hypertension Family history of chronic obstructive pulmonary disease Family history of diabetes mellitus in first degree relative Family history of heart disease in male family member before age 55 Mother Cerebrovascular accident Family history of heart disease in male family member before age 55 Grandparent Hypertension paternal grandmother maternal grandmother Cerebrovascular accident maternal grandmother Family history of heart disease in male family member before age 55 paternal grandmother maternal grandfather maternal grandmother Lung cancer paternal grandfather Breast cancer paternal grandmother Other Family history of allergic disorder Social History Social History (System 11/21/21 @ 13:27 by Ana María Terry) Social History: Patient lives at home with her and children. She wishes to be a full code. She does not have a healthcare POA, but designates her to be medical decision maker if needed. Smoking status: Never smoker Alcohol intake: current Drinks per week: 1 Alcohol use details: 1-2 times per month. 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 Gender
--- NOTE | 2022-04-18 10:53 | SUR.OPER ---
EGD ENDED 1045, COLONOSCOPY STARTED 1052
[2022-04-18 11:07] VITALS: BP 122/79; PULSE 82; RESP 20; O2SAT 100
[2022-04-18 11:17] VITALS: BP 152/95; PULSE 82; RESP 23; O2SAT 94
[2022-04-18 11:27] VITALS: BP 151/99; PULSE 77; RESP 18; O2SAT 100
== END 2022-04-18 11:37 | disposition home or self-care (01) ==
PROVIDERS: PCP Internal Medicine; Visit Provider Internal Medicine Gastroenterology
PROC: 0DJ08ZZ Inspection of Upper Intestinal Tract, Via Natural or Artificial Opening Endoscopic (ICD-10-PCS; CPT 43235; principal; 2022-04-18 11:00)
DX: Z12.11 Encounter for screening for malignant neoplasm of colon (principal); K57.30 Diverticulosis of large intestine without perforation or abscess without bleeding; R19.4 Change in bowel habit; K22.2 Esophageal obstruction; K44.9 Diaphragmatic hernia without obstruction or gangrene; K58.1 Irritable bowel syndrome with constipation; Z79.84 Long term (current) use of oral hypoglycemic drugs; J45.909 Unspecified asthma, uncomplicated; E11.9 Type 2 diabetes mellitus without complications; I10 Essential (primary) hypertension; R32 Unspecified urinary incontinence; E66.01 Morbid (severe) obesity due to excess calories; Z68.42 Body mass index [BMI] 45.0-49.9, adult
CPT/HCPCS: 45378; 43239; 43249; 82948; 88305; C1726; J2704; J7120

== ENCOUNTER 2022-10-20 02:49 | Day surgery (SDC) | payer BC, SELFPAY ==
[2022-10-02 14:20] VITALS: BMI 50.8
--- NOTE | 2022-10-17 15:12 | PM.HPGS ---
History of Present Illness History of Present Illness Consent: Risks, benefits, and alternatives have been discussed and questions answered. Patient agrees to proceed with procedure. Chief complaint: esophageal stricture Narrative: Ginger Delgado is a 52 year old female With dysphagia for solid food. She was found to have an esophageal stricture last year that was dilated up to about 19 mm. Review of Systems Review of Systems: All systems reviewed & are unremarkable except as noted in HPI and below PMFSH Past Medical History Medical History Asthma Diabetes History of hypertension Irritable bowel syndrome with constipation Obesity, morbid, BMI 40.0-49.9 Screening mammogram, encounter for Sigmoid diverticulitis Urinary incontinence Surgical History Surgical History History of dilatation and curettage 1996 for miscarriage History of excision of mass 2012 - Excision of RUQ abdominal wall lipoma. History of partial hysterectomy 2005 supracervical hysterectomy History of thyroidectomy 2008 History of tonsillectomy History of tubal ligation 1997 Previous section 1988 1990 1995 1997 Family History Family History Father Hypertension Family history of chronic obstructive pulmonary disease Family history of diabetes mellitus in first degree relative Family history of heart disease in male family member before age 55 Asthma Mother Cerebrovascular accident Family history of heart disease in male family member before age 55 Grandparent Hypertension paternal grandmother maternal grandmother Cerebrovascular accident maternal grandmother Family history of heart disease in male family member before age 55 paternal grandmother maternal grandfather maternal grandmother Lung cancer paternal grandfather Breast cancer paternal grandmother Other Family history of allergic disorder Social History Social History Social History: Patient lives at home with her and children. She wishes to be a full code. She does not have a healthcare POA, but designates her to be medical decision maker if needed. Smoking status: Never smoker Alcohol intake: current Drinks per week: 1 Alcohol use details: 1-2 times per month. 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 Gender identity (if verbalized by the patient): Female Sexual Orientation (if Verbalized by the Patient): Straight or Heterosexual Spiritual care concerns: No Meds Home Medications and Allergies Home Medications Medication Instructions Recorded Confirmed Type cholecalciferol (vitamin D3) 1,250 1,250 mcg PO WEEKLY 11/06/21 10/02/22 History mcg (50,000 unit) capsule losartan 50 mg tablet 50 mg PO DAILY 11/06/21 10/02/22 History metformin 500 mg tablet,extended 500 mg PO BID 11/06/21 10/02/22 History release 24 hr naproxen 500 mg tablet 500 mg PO BID PRN Pain 11/06/21 10/02/22 History spironolactone 50 mg tablet 50 mg PO BID 11/06/21 10/02/22 History estradiol 1 mg tablet 1 mg PO DAILY #90 tabs 01/06/22 10/02/22 Rx esomeprazole magnesium 40 mg 40 mg PO DAILY #30 caps 03/20/22 10/02/22 Rx capsule,delayed release (Nexium) polyethylene glycol 3350 17 17 g PO DAILY #238 grams 03/20/22 10/02/22 Rx gram/dose oral powder (Miralax) albuterol sulfate 90 mcg/actuation 2 inh inhalation Q4H PRN shortness 07/04/22 10/02/22 Rx aerosol inhaler (Ventolin HFA) of breath or wheezing #6.7 grams ipratropium 0.5 mg-albuterol 3 mg 3 ml inhalation Q6H PRN s
[2022-10-20 07:51] VITALS: BP 146/87; PULSE 78; RESP 18; TEMP 35.8; O2SAT 100; BMI 51.3
[2022-10-20] MEDS: LACTATED RINGERS 1,000 ML 150 ML IV CONT (08:07)
[2022-10-20 08:08] LABS: Glucose Point of Care 105 mg/dl (65-105)
--- NOTE | 2022-10-20 08:49 | WPDANESEPPF ---
Anes - Initial Pre Proc Eval Procedure: Operation Date: 10/20/22 09:00 Proposed Procedures p Esophagogastroduodenoscopy EGD - Jose Ramos MD Date/Time: 10/20/22 08:49 Surgeon: Jose Ramos MD Pre Op Diagnosis: esophageal stricture Patient Data Age: 52 Gender: F Height: 1.6 m Weight: 131.5 kg Last Vital Signs Temp 96.5 F L 10/20/22 07:51 Pulse 78 10/20/22 07:51 Resp 18 10/20/22 07:51 BP 146/87 H 10/20/22 07:51 Pulse Ox 100 10/20/22 07:51 O2 Del Method Room Air 10/20/22 07:51 Allergies Allergy/AdvReac Type Severity Reaction Status Date / Time adhesive AdvReac Unknown RASH Verified 10/02/22 14:15 Home Medications Medication Instructions Recorded Confirmed Type cholecalciferol (vitamin D3) 1,250 1,250 mcg PO WEEKLY 11/06/21 10/02/22 History mcg (50,000 unit) capsule losartan 50 mg tablet 50 mg PO DAILY 11/06/21 10/02/22 History metformin 500 mg tablet,extended 500 mg PO BID 11/06/21 10/02/22 History release 24 hr naproxen 500 mg tablet 500 mg PO BID PRN Pain 11/06/21 10/02/22 History spironolactone 50 mg tablet 50 mg PO BID 11/06/21 10/02/22 History estradiol 1 mg tablet 1 mg PO DAILY #90 tabs 01/06/22 10/02/22 Rx esomeprazole magnesium 40 mg 40 mg PO DAILY #30 caps 03/20/22 10/02/22 Rx capsule,delayed release (Nexium) polyethylene glycol 3350 17 17 g PO DAILY #238 grams 03/20/22 10/02/22 Rx gram/dose oral powder (Miralax) albuterol sulfate 90 mcg/actuation 2 inh inhalation Q4H PRN shortness 07/04/22 10/02/22 Rx aerosol inhaler (Ventolin HFA) of breath or wheezing #6.7 grams ipratropium 0.5 mg-albuterol 3 mg 3 ml inhalation Q6H PRN shortness 07/04/22 10/02/22 Rx (2.5 mg base)/3 mL nebulization of breath or wheezing #90 mL soln levothyroxine 75 mcg tablet 75 mcg PO DAILY 07/04/22 10/02/22 History (Synthroid) cyanocobalamin (vitamin B-12) 1,000 mcg WEEKLY 10/02/22 10/02/22 History 1,000 mcg/mL injection syringe Laboratory Tests 10/20/22 08:06 POC Capillary Glucose 105 mg/dl mg/dl (65-105) Patient hx anesthesia problems: none Family hx anesthesia problems: none Results Review: All pre-operative results and documents have been reviewed as part of the pre-operative evaluation. [facility] Past Medical History Medical History Asthma Diabetes History of hypertension Irritable bowel syndrome with constipation Obesity, morbid, BMI 40.0-49.9 Screening mammogram, encounter for Sigmoid diverticulitis Urinary incontinence Surgical History Surgical History History of dilatation and curettage 1996 for miscarriage History of excision of mass 2012 - Excision of RUQ abdominal wall lipoma. History of partial hysterectomy 2005 supracervical hysterectomy History of thyroidectomy 2009 History of tonsillectomy History of tubal ligation 1997 Previous section 1988 1991 1996 1997 Family History Family History Father Hypertension Family history of chronic obstructive pulmonary disease Family history of diabetes mellitus in first degree relative Family history of heart disease in male family member before age 55 Asthma Mother Cerebrovascular accident Family history of heart disease in male family member before age 55 Grandparent Hypertension paternal grandmother maternal grandmother Cerebrovascular accident maternal grandmother Family history of heart disease in male family member before age 55 paternal grandmother maternal grandfather maternal grandmother Lung cancer paternal grandfather Breast cancer paternal grandmother Other Family history of allergic disorder Social History Social History Social History: Patient lives at home with
[2022-10-20 09:07] VITALS: BP 136/94; PULSE 82; RESP 23; O2SAT 97
[2022-10-20 09:17] VITALS: BP 148/89; PULSE 82; RESP 20; O2SAT 97
[2022-10-20 09:27] VITALS: BP 133/96; PULSE 81; RESP 16; O2SAT 100
== END 2022-10-20 09:40 | disposition home or self-care (01) ==
PROVIDERS: PCP Physician Assistant Medical; Visit Provider Internal Medicine Gastroenterology
PROC: 0DJ08ZZ Inspection of Upper Intestinal Tract, Via Natural or Artificial Opening Endoscopic (ICD-10-PCS; CPT 43235; principal; 2022-10-20 09:00)
DX: K22.2 Esophageal obstruction (principal); J45.909 Unspecified asthma, uncomplicated; E11.9 Type 2 diabetes mellitus without complications; K58.1 Irritable bowel syndrome with constipation; E66.01 Morbid (severe) obesity due to excess calories; Z68.43 Body mass index [BMI] 50.0-59.9, adult; Z79.84 Long term (current) use of oral hypoglycemic drugs; Z79.51 Long term (current) use of inhaled steroids
CPT/HCPCS: 43249; 82948; C1726; J2704; J7120

== ENCOUNTER 2022-11-26 09:13 | Observation (INO) | payer BC, SELFPAY ==
[2022-11-26] VITALS (13 sets, daily range): BP systolic 116–173; BP diastolic 57–104; PULSE 84–114; RESP 14–27; TEMP 36.4–36.8; O2SAT 97–100; BMI 52.2
--- NOTE | 2022-11-26 | ECHO_ITS ---
Patient Info Name: Ginger Delgado Age: 52 years : 1970 Gender: Female Ht: 63 in Wt: 289 lbs BSA: 2.50 m2 HR: 94 bpm BP: 123 / 73 mmHg Technical Quality: Fair Exam Date: 11/26/2022 3:47 PM Exam Location: [facility] Pulmonary Exam Room: ED 2 Patient Status: Emergency Admit Date: 11/26/2022 Staff Ordering Physician: Betina Flowers NP Pre Sales Network Engineer: Anna Pretty RDCS Attending Provider: Li Martínez APRN Referring Physician: Lionel ARIZA; Exam Type: CA echo doppler color flow Study Info Indications - CHEST PAIN Complete two-dimensional, color flow and Doppler transthoracic echocardiogram is performed. Summary 1. Complete two-dimensional, color flow and Doppler transthoracic echocardiogram is performed. 2. Left ventricular chamber dimension is normal. 3. Left ventricular systolic function is normal, estimated at 60-65%. 4. The left ventricular diastolic function is grade II diastolic dysfunction. 5. E/e' 8 is minimally elevated. 6. Mild pulmonary hypertension, estimated pulmonary arterial systolic pressure is 44 mmHg. Left Ventricle E/e' 8 is minimally elevated. Left ventricular chamber dimension is normal. Left ventricular systolic function is normal, estimated at 60-65%. The left ventricular diastolic function is grade II diastolic dysfunction. Right Ventricle Right ventricular systolic function is normal and with normal TAPSE 2.4 cm. Right ventricular chamber dimension is normal. Left Atria Left atrial chamber dimension is normal. Right Atria Right atrial chamber dimension is normal. Aortic Valve The aortic valve is trileaflet. There is no aortic valve stenosis. There is no aortic valve regurgitation. Pulmonic Valve There is no pulmonic regurgitation. Mitral Valve There is no mitral valve stenosis. There is no mitral valve regurgitation. Tricuspid Valve There is no tricuspid valve regurgitation. Mild pulmonary hypertension, estimated pulmonary arterial systolic pressure is 44 mmHg. Pericardium/Pleural There is no pericardial effusion. Inferior Vena Cava Normal inferior vena cava with >50% collapse upon inspiration consistent with normal right atrial pressure, 5 mmHg. Aorta The aortic root size at the sinus of Valsalva is normal. Left Ventricular Outflow Tract Name Value Normal LVOT 2D LVOT Diameter 2.1 cm LVOT Doppler LVOT Peak Gradient 4 mmHg LVOT Mean Gradient 3 mmHg LVOT VTI 18 cm LVOT VTI/AV VTI Ratio 0.7 LVOT Stroke Volume 60 ml LVOT CO 15.3 l/min LVOT CI 6.1 l/min/m2 Pulmonic Valve Name Value Normal PV Doppler PV Peak Gradient 5 mmHg Mitral Va
--- NOTE | ~2022-11-26 | XR_ITS ---
EXAMINATION: XR chest 2V DATE: 11/26/2022 09:51 INDICATION: Generalized chest pain. TECHNIQUE: Frontal and lateral views of the chest were obtained. COMPARISON: CT abdomen and pelvis 10/23/2021 FINDINGS: A calcified right lung nodule is consistent with old granulomatous disease. No pleural effu britni or pneumothorax. The heart size is normal. There are surgical clips in the right neck. IMPRESSION: 1. No acute cardiopulmonary disease. Reviewed, dictated and finalized at location A. MENTATION CLERK
--- NOTE | ~2022-11-26 | US_ITS ---
EXAMINATION: US arterial ankle brachial ind DATE: 11/27/2022 19:31 INDICATION: Intermittent claudication TECHNIQUE: Segmental pressures and plethysmographic and Doppler waveforms of the brachial and lower e xtremity arteries were obtained. COMPARISON: None. FINDINGS: Right and left brachial artery pressures of 147 mm Hg and 161 mm Hg, respectively, are concordant (no rmal difference <= 30 mmHg). The right ankle-brachial index (AUBREY) is 0.96 (normal >= 0.9-1.0). The right great toe-brachial index (TBI) is 0.62 (normal >= 0.65). Arterial Doppler waveforms are biphasic with brisk systolic upstrokes at both right posterior tibial and dorsalis pedis arteries. The left AUBREY is 0.97. The left TBI is 0.65. Arterial Doppler waveforms are biphasic with brisk systol ic upstrokes at both left posterior tibial and dorsalis pedis arteries. IMPRESSION: 1. Mild arterial occlusive disease with mildly decreased right TBI and borderline left TBI and bilate ral ABIs. Reviewed, dictated and finalized at location A. UNT UNDERWRITER IMPRESSION: 1. Mild arterial occlusive disease with mildly decreased right TBI and borderli ne left TBI and bilateral ABIs.
--- NOTE | ~2022-11-26 | US_ITS ---
EXAMINATION: US venous doppler [facility] DATE: 11/27/2022 19:31 INDICATION: Chest pain. Lower limb pain. TECHNIQUE: Grayscale ultrasound images without and with compression and Doppler ultrasound images of the bilateral lower extremity veins were obtained. COMPARISON: None. FINDINGS: The visualized portions of right common femoral vein, profunda (deep) femoral vein, femoral vein, pop liteal vein, posterior tibial veins, peroneal veins, gastrocnemius vein and greater saphenous vein ou tflow are patent. The visualized portions of left common femoral vein, profunda femoral vein, femoral vein, popliteal v ein, posterior tibial veins, peroneal veins, gastrocnemius vein and greater saphenous vein outflow ar e patent. IMPRESSION: 1. No deep venous thrombosis in either lower limb. Reviewed, dictated and finalized at location A. ITUDINAL FLOAT OPERATOR
--- NOTE | ~2022-11-26 | CT_ITS ---
EXAMINATION: CTA chest PE protocol DATE: 11/27/2022 18:18 INDICATION: Generalized chest pain. Elevated d-dimer. TECHNIQUE: Computed tomography (CT) pulmonary angiogram of the chest was performed with 100 mL Omnipa que-350 intravenous contrast. Additional 3D reconstructions utilizing coronal maximum intensity proje ction (MIP) were performed. Automated exposure control and iterative reconstruction technique were em ployed. The dose-length product was 582.55 mGy-cm. COMPARISON: None FINDINGS: . contrast opacification of the pulmonary arteries. There is mild streak artifact from dense contrast in the superior vena cava and right atrium. No pulmonary embolism. Minimal dependent atelectasis in the bilateral lower lobes. No pneumonia, pulmonary edema or pleural effusion. Calcified right upper l obe nodule along with calcified right hilar and mediastinal lymph nodes consistent with old granuloma tous disease. Heart size is normal. No pericardial effusion. Thoracic aorta is normal in caliber with no dissection. Status post right thyroidectomy. There are 2 tiny foci of extraluminal gas along the right posterior wall of the proximal thoracic trachea which could represent either small tracheal div erticula or minimal pneumomediastinum. No associated mediastinal fluid collections or stranding. No p athologically enlarged thoracic lymphadenopathy. Moderate thoracic spondylosis. IMPRESSION: 1. No pulmonary embolism or other acute cardiopulmonary disease. 2. Couple tiny foci of gas along the right posterior wall of the proximal thoracic trachea without manriquez rrounding stranding which could represent either tracheal diverticula or minimal pneumomediastinum. Reviewed, dictated and finalized at location A. MACHINE IMPRESSION: 1. No pulmonary embolism or other acute cardiopulmonary disease. 2. Couple tiny foci of gas along the right posterior wall of the proximal thora cic trachea without surrounding stranding which could represent either tracheal diverticula or minimal pneumomediastinum.
--- NOTE | ~2022-11-26 | NM_ITS ---
EXAMINATION: NM aram stress w perfusion DATE: 11/27/2022 10:16 INDICATION: Chest pain. TECHNIQUE: Rest images were obtained following intravenous administration of 10.3 mCi Tc99m tetrofosm in (Myoview). The patient was infused intravenously with Lexiscan (regadenoson). Then, 33.3 mCi Tc99m tetrofosmin (Myoview) was administered intravenously, and stress images were obtained. Data was chela nstructed into short axis and horizontal and vertical long axis SPECT images. Gated SPECT images were also obtained. COMPARISON: CT abdomen and pelvis 10/23/2021 FINDINGS: There is no definite reversible or fixed perfusion abnormality to suggest ischemia or infar ction. There is no segmental wall motion abnormality. Left ventricular ejection fraction measures 6 7%. IMPRESSION: 1. No definite ischemia or infarct. 2. Normal left ventricular ejection fraction measuring 67%. Reviewed, dictated and finalized at location A. EMENT DISTRIBUTION CLERK
--- NOTE | 2022-11-26 09:27 | ECG_ITS ---
Measurements Intervals [place] Rate: 106 P: 34 [place]: 150 QRS: -5 QRSD: 96 T: 49 QT: 320 QTc: 426 Interpretive Statements SINUS TACHYCARDIA FREQUENT VENTRICULAR PREMATURE COMPLEXES LOW QRS VOLTAGE IN PRECORDIAL LEADS BORDERLINE ST-T WAVE ABNORMALITY- HIGH LATERAL LEADS BASELINE ARTIFACT- I, III, AVL ABNORMAL ECG NO PREVIOUS ECG AVAILABLE FOR COMPARISON Electronically Signed On 11-26-2022 9:53:42 ENGROSSER by Jono Chen D.O.
[2022-11-26 09:39] LABS: Basophils Absolute Auto 0.1 K/mm3 (0.0-0.1); Eosinophils Absolute Auto 0.1 K/mm3 (0-0.3); Eosinophils Percent Auto 1.2 % (0-4.4); Hematocrit 41.3 % (37.0-47.0); Hemoglobin 13.3 g/dL (12.0-15.0); Immature Granulocyte Absolute 0.03 K/mm3 (0.00-0.031); Immature Granulocyte Percent A 0.3 % (0-0.5); Lymphocytes Absolute Auto 3.75 K/mm3 (0.9-3.2); Lymphocytes Percent Auto 41.5 % (18.3-44.2); Mean Corpuscular HGB Conc 32.2 g/dl (32-36); Mean Corpuscular Volume 90.2 fl (80-100); Mean Platelet Volume 12.3 fl (7.4-10.4); Monocytes Absolute Auto 0.4 K/mm3 (0.1-0.6); Monocytes Percent Auto 4.3 % (2.6-8.5); Neutrophils Absolute Auto 4.7 K/mm3 (1.3-6.7); Neutrophils Percent Auto 51.7 % (45.5-73.1); Platelet Count Result 155 k/mm3 (150-375); Red Blood Count 4.58 M/mm3 (4.2-5.4); Red Cell Distribution Width 15.9 % (11.5-14.5)
[2022-11-26] MEDS: ASPIRIN 81 MG CHEWABLE TABLET 324 MG PO (09:39)
[2022-11-26 09:48] LABS: INR 1.2; Partial Thromboplastin Time 21.5 SECONDS (22.3-36.8); Prothrombin Time 14.4 Seconds (11.1-14.7)
[2022-11-26 09:50] LABS: Atypical Lymphocytes Present; Platelet Estimate Adequate (Adequate); Schistocytes None Seen (NORMAL)
[2022-11-26 09:50] LABS: Alanine Aminotransferase 44 U/L (6-35); Albumin Level 3.8 g/dL (3.5-5.1); Alkaline Phosphatase 110 U/L (38-126); Anion Gap 8 mmol/L (8-16); Aspartate Amino Transferase 45 U/L (14-36); Bilirubin,Total 0.6 mg/dL (0.2-1.3); Blood Urea Nitrogen 18 mg/dL (7-17); Calcium 9.5 mg/dL (8.4-10.2); Carbon Dioxide 24 mmol/L (22-30); Chloride 103 mmol/L (98-107); Estimated CRCL calculation 82 ml/min; Estimated Glomerular Filt Rate > 60; Glucose 131 mg/dL (65-110); Lipase 96 U/L (23-300); Potassium 4.3 mmol/L (3.4-5.0); Sodium 135 mmol/L (137-145)
[2022-11-26 10:00] LABS: Troponin I < 0.012 ng/mL (0.000-0.034)
--- NOTE | 2022-11-26 10:07 | ED.CHESTPAIN ---
HPI - Chest Pain General Chief Complaint: Chest Pain Stated Complaint: chest pain Time Seen by Provider: 11/26/22 09:53 Source: patient Mode of arrival: ambulatory Limitations: no limitations History of Present Illness HPI narrative: 52-year-old female with history of partial thyroidectomy presents today with concerns of diaphoresis, shortness of breath, chest pain intermittent over the last couple days. Patient did see her OB doctor today who suggested she contact her primary. Her primary physician could not get her in until next week and suggested that she come to the ER. Patient currently has no chest pain. Patient does state that the episodes can last a couple minutes up to an hour or so but she did not time them. She states that they are random sometimes they can happen if she is doing something and sometimes they can happen when she is just sitting there. Patient states if her starts with diaphoresis then she goes to having shortness of breath and then chest pain then dizziness and lightheadedness. Patient states they resolve on their own. She does not endorse any cardiac history although her father at about the age she is now at had a cardiac bypass. Patient's last stress test was over 10 years ago and was done because of her surgery. After further questioning patient does endorse shortness of breath and at times chest pain with ambulation. She states that she does not know how long that it happens for her but at times she can be short of breath with chest pain and after resting it does go away. complaint: chest pain Timing of current episode: now resolved Prior episodes: Yes Onset: during rest and during exertion Pain location: substernal Pain radiation: none Severity: moderate Quality: heaviness Relieving factors: nothing Exacerbating factors: nothing Treatment prior to arrival: none Risk Factors Coronary artery disease risk factors: diabetes, hypertension and family history of CAD before age 50 Related Data Home Medications Medication Instructions Recorded Confirmed cholecalciferol (vitamin D3) 1,250 1,250 mcg PO WEEKLY 11/06/21 11/26/22 mcg (50,000 unit) capsule losartan 50 mg tablet 50 mg PO DAILY 11/06/21 11/26/22 metformin 500 mg tablet,extended 500 mg PO BID 11/06/21 11/26/22 release 24 hr naproxen 500 mg tablet 500 mg PO BID PRN Pain 11/06/21 11/26/22 spironolactone 50 mg tablet 50 mg PO BID 11/06/21 11/26/22 levothyroxine 75 mcg tablet 75 mcg PO DAILY 07/04/22 11/26/22 (Synthroid) cyanocobalamin (vitamin B-12) 1,000 mcg WEEKLY 10/02/22 11/26/22 1,000 mcg/mL injection syringe Allergies Allergy/AdvReac Type Severity Reaction Status Date / Time adhesive AdvReac Unknown RASH Verified 11/26/22 09:28 Review of Systems Review of Systems: CONSTITUTIONAL: Denies fever, chills, or sweats. EYES: Denies visual changes, redness, or discharge. ENT: Denies rhinorrhea, congestion, sore throat, or otalgia. CARDIOVASCULAR: Chest pain intermittent. Denies chest palpitations, or edema. RESPIRATORY: Shortness of breath with episodes of chest pain. Denies cough or dyspnea. GASTROINTESTINAL: Denies abdominal pain, nausea, vomiting, or diarrhea. MUSCULOSKELETAL: Denies back pain, joint pain, or myalgia. NEUROLOGIC: Dizziness and lightheadedness when chest pain occurs. Denies headache or weakness. PSYCHIATRIC: Denies anxiety or depression. [facility] Past Medical History Medical History Asthma Diabetes History of hypertension Hypertension Hypothyroidism Irritable bowel syndrome with constipation Obesity, morbid, BMI 40.0-49.9 Screening mammogram, encounter for Sigmoid diverticulitis Urinary incontinence Surgical History Surgical History H/O colonoscopy History of dilatation and curettage 1996 for miscarriage History of endoscopy History of excision of mass 2012 - Excision of RUQ abdominal wall li
[2022-11-26 13:17] LABS: Troponin I < 0.012 ng/mL (0.000-0.034)
--- NOTE | 2022-11-26 14:25 | PM.IMHP ---
H&P: HPI History of Present Illness Date/Time: 11/26/22 14:25 Chief Complaint: Chest pain Narrative: This is a 52-year-old female patient who has had a history of partial thyroidectomy. The patient stated that she had an appointment with her OBGYN today and she told her OBGYN that she has been diaphoretic short of breath and having chest pain over the last couple days. The chest pain come sink goes and is tender to her mid chest. The patient states she has not had any excessive exercise or any injury to her chest. The patient stated that the pain last a couple minutes to hours. She also has acid reflux. The patient could be relaxing when the pain comes on. The patient stated she was folding clothes and she became diaphoretic and short of breath. Then she would start with chest pain and dizziness. The chest pain would resolve on its own. The patient has had no previous history of coronary artery disease. Her blood sugar was 131 and then 120. All 3 cardiac enzymes have been nonreactive. Chest x-ray was read as no acute cardiopulmonary disease. The patient was given an aspirin. Her EKG was read as sinus tachycardia with frequent ventricular premature complexes. The patient is being admitted to observation status on the date of service of 11/26/2022 Review of Systems Review of Systems: See HPI All systems reviewed & are unremarkable except as noted in HPI and below Constitutional: Constitutional: Reports as per HPI and Reports no additional constitutional complaints Eyes: Eyes: Reports as per HPI and Reports no additional eye complaints ENT: Reports system reviewed and no additional complaints, except as documented and Reports Normal hearing present Cardiovascular: Cardiovascular: Reports no additional cardiovascular complaints Respiratory: Respiratory: Reports no additional respiratory complaints and Reports no additional respiratory complaints Gastrointestinal: Gastrointestinal: Reports as per HPI and Reports no additional gastrointestinal complaints Musculoskeletal: Musculoskeletal: Reports no additional musculoskeletal complaints Integumentary/Breasts: Skin/Breast: Reports system reviewed and no additional complaints, except as docu and Reports as per HPI Neurologic: Reports system reviewed and no additional complaints, except as documented, Reports as per HPI and Reports Normal hearing present Psychiatric: Psychiatric: Reports no additional psychiatric complaints and Reports as per HPI Endocrine: Endocrine: Reports no additional endocrine complaints Hematologic/Lymphatic: Hematologic/Lymphatic: Reports no additional hematologic/lymphatic complaints Allergic/Immunologic: Allergic/Immunologic: Reports no additional allergic/immunologic complaints [facility] Past Medical History Medical History Asthma Diabetes History of hypertension Hypertension Hypothyroidism Irritable bowel syndrome with constipation Obesity, morbid, BMI 40.0-49.9 Screening mammogram, encounter for Sigmoid diverticulitis Urinary incontinence Surgical History Surgical History H/O colonoscopy History of dilatation and curettage 1996 for miscarriage History of endoscopy History of excision of mass 2012 - Excision of RUQ abdominal wall lipoma. History of partial hysterectomy 2005 supracervical hysterectomy History of thyroidectomy 2009 History of tonsillectomy History of tubal ligation 1997 Previous section 1988 1990 1996 1998 Family History Family History Father Hypertension Family history of chronic obstructive pulmonary disease Family history of diabetes mellitus in first degree relative Family history of heart disease in male family member before age 55 Asthma Mother Cerebrovascular accident Family history of heart disease in male family member be
--- NOTE | 2022-11-26 14:29 | EST_ITS ---
Patient Info Name: Ginger Delgado Age: 52 years : 1970 Gender: Female Ht: 63 in Wt: 283 lbs BSA: 2.47 m2 HR: 97 bpm BP: 141 / 96 mmHg Heart Rhythm: Sinus Rhythm Exam Date: 11/27/2022 8:53 AM Exam Location: [facility] Stress Patient Status: Inpatient Admit Date: 11/26/2022 Staff Ordering Physician: Betina Flowers NP Attending Provider: Isaiah Marcial MD Exercise Technologist: Rebecca Adrian CT Exercise Physician: Jono Chen DO Exam Type: CA stress aram w NM Study Info Indications R07.9 - Chest pain, unspecified A regadenoson stress test was performed. Summary 1. 1. Negative lexiscan stress test for ischemic ST changes by ECG criteria. 2. 2. Stable hemodynamics throughout the test. 3. 3. Nuclear scan to follow and will be reported separately. Please correlate with it. 4. 4. Patient informed of the above results. Protocol: Lexiscan Stress ECG Details Stage: REST Duration (min): 1 min : 26 sec HR (bpm): 98 SBP (mmHg): 141 DBP (mmHg): 96 Stage: REST Duration (min): 7 min : 34 sec HR (bpm): 98 SBP (mmHg): 141 DBP (mmHg): 96 Stage: STAGE 1 Duration (min): 0 min : 59 sec HR (bpm): 118 SBP (mmHg): 141 DBP (mmHg): 96 Stage: RECOVERY Duration (min): 1 min : 0 sec HR (bpm): 122 SBP (mmHg): 141 DBP (mmHg): 96 Stage: RECOVERY Duration (min): 2 min : 0 sec HR (bpm): 113 SBP (mmHg): 125 DBP (mmHg): 88 Stage: RECOVERY Duration (min): 3 min : 0 sec HR (bpm): 115 SBP (mmHg): 125 DBP (mmHg): 91 Stage: RECOVERY Duration (min): 3 min : 24 sec HR (bpm): 114 SBP (mmHg): 125 DBP (mmHg): 91 Rest HR: 98 bpm Peak HR: 123 bpm Rest Sys BP: 141 mmHg Peak Sys BP: 125 mmHg Max Pred HR: 166 bpm % Max Pred HR: 74 % Target HR: 141 bpm Max RPP: 15,375 bpm*mmHg Termination Reason: Completed protocol Cardiac Symptoms: Shortness of breath Total Time: 1 min : 0 sec Rest Bedoya BP: 96 mmHg Peak Bedoya BP: 91 mmHg Total Dose: 0.4 mg Resting ECG Sinus rhythm. Stress ECG No ST changes. Arrhythmias None. Report Signatures
[2022-11-26 16:06] LABS: Troponin I < 0.012 ng/mL (0.000-0.034)
--- NOTE | 2022-11-26 17:42 | ADMGEN ---
This patient, Ginger Delgado, was admitted to bed 205-1. Patient/family oriented to hospital policies and general routines including ID bracelet, bed and alarms, visiting hours, pain management, procedures, bathroom and other care routines, personal items, smoking policy, room service/diet, and visiting hours. Information on how to activate the Rapid Response Team has been discussed. Patient/Family are encouraged to report perceived risks to care and to ask questions if they do not understand what they are told or what they should do.
[2022-11-26 18:03] LABS: Glucose Point of Care 103 mg/dl (65-105)
[2022-11-26 19:53] LABS: Glucose Point of Care 120 mg/dl (65-105)
[2022-11-27] VITALS (10 sets, daily range): BP systolic 100–152; BP diastolic 66–80; PULSE 16–113; RESP 16–84; TEMP 36.9–37.6; O2SAT 97–99
[2022-11-27 05:02] LABS: Basophils Absolute Auto 0.1 K/mm3 (0.0-0.1); Basophils Percent Auto 0.9 % (0.2-1.2); Eosinophils Absolute Auto 0.2 K/mm3 (0-0.3); Hematocrit 38.3 % (37.0-47.0); Hemoglobin 12.4 g/dL (12.0-15.0); Immature Granulocyte Absolute 0.02 K/mm3 (0.00-0.031); Immature Granulocyte Percent A 0.4 % (0-0.5); Lymphocytes Absolute Auto 2.52 K/mm3 (0.9-3.2); Lymphocytes Percent Auto 45.4 % (18.3-44.2); Mean Corpuscular HGB Conc 32.4 g/dl (32-36); Mean Corpuscular Hemoglobin 28.9 pg (26-34); Mean Corpuscular Volume 89.3 fl (80-100); Mean Platelet Volume 11.9 fl (7.4-10.4); Monocytes Absolute Auto 0.4 K/mm3 (0.1-0.6); Monocytes Percent Auto 7.6 % (2.6-8.5); Neutrophils Absolute Auto 2.3 K/mm3 (1.3-6.7); Neutrophils Percent Auto 41.7 % (45.5-73.1); Platelet Count Result 141 k/mm3 (150-375); Red Blood Count 4.29 M/mm3 (4.2-5.4); Red Cell Distribution Width 15.9 % (11.5-14.5); White Blood Count 5.6 K/mm3 (4.5-10.0)
[2022-11-27 05:17] LABS: Lactic Acid Reflex 0.7 mmol/L (0.7-2.0)
[2022-11-27 05:19] LABS: Alanine Aminotransferase 47 U/L (6-35); Albumin Level 3.4 g/dL (3.5-5.1); Alkaline Phosphatase 95 U/L (38-126); Anion Gap 3 mmol/L (8-16); Aspartate Amino Transferase 45 U/L (14-36); Bilirubin,Total 0.5 mg/dL (0.2-1.3); Blood Urea Nitrogen 13 mg/dL (7-17); Carbon Dioxide 27 mmol/L (22-30); Chloride 103 mmol/L (98-107); Estimated CRCL calculation 94 ml/min; Estimated Glomerular Filt Rate > 60; Glucose 93 mg/dL (65-110); Lipase 68 U/L (23-300); Magnesium 1.9 mg/dL (1.6-2.3); Sodium 133 mmol/L (137-145)
[2022-11-27] MEDS: LEVOTHYROXINE SODIUM 75 MCG TABLET PO (05:21)
[2022-11-27 05:23] LABS: Anisocytosis 1+ (NORMAL); Atypical Lymphocytes Present; Schistocytes None Seen (NORMAL)
[2022-11-27 05:43] LABS: Hemoglobin A1C 5.5 % (<5.7)
[2022-11-27] MEDS: estradioL 1 MG TABLET PO (07:58)
[2022-11-27] MEDS: SPIRONOLACTONE 50 MG TABLET 100 MG PO (07:58)
[2022-11-27] MEDS: LOSARTAN POTASSIUM 50 MG TABLET PO (07:58)
[2022-11-27] MEDS: ASPIRIN 81 MG ENTERIC TABLET PO (07:58)
--- NOTE | 2022-11-27 08:44 | PM.CNCAR ---
History of Present Illness History of Present Illness Consult date/time: 11/27/22 08:44 Consult reason: chest pain Reason For Visit: chest pain PMFSH Past Medical History Medical History Asthma Diabetes History of hypertension Hypertension Hypothyroidism Irritable bowel syndrome with constipation Obesity, morbid, BMI 40.0-49.9 Screening mammogram, encounter for Sigmoid diverticulitis Urinary incontinence Surgical History Surgical History H/O colonoscopy History of dilatation and curettage 1996 for miscarriage History of endoscopy History of excision of mass 2012 - Excision of RUQ abdominal wall lipoma. History of partial hysterectomy 2005 supracervical hysterectomy History of thyroidectomy 2008 History of tonsillectomy History of tubal ligation 1997 Previous section 1988 1990 1995 1997 Family History Family History Father Hypertension Family history of chronic obstructive pulmonary disease Family history of diabetes mellitus in first degree relative Family history of heart disease in male family member before age 55 Asthma Mother Cerebrovascular accident Family history of heart disease in male family member before age 55 Grandparent Hypertension paternal grandmother maternal grandmother Cerebrovascular accident maternal grandmother Family history of heart disease in male family member before age 55 paternal grandmother maternal grandfather maternal grandmother Lung cancer paternal grandfather Breast cancer paternal grandmother Other Family history of allergic disorder Social History Social History (Updated 11/26/22 @ 22:05 by Betina Flowers NP) Social History: Patient lives at home with her and children. She wishes to be a full code. She does not have a healthcare POA, but designates her to be medical decision maker if needed. Code status full code Smoking status: Never smoker Alcohol intake: current Drinks per week: 1 Alcohol use details: 1-2 times per month. Substance use: never Substance use type: does not use Living arrangements: other Additional living arrangements comments: spouse Occupation/Education: occupation Additional occupation/education comments: [employer] Gender identity (if verbalized by the patient): Female Sexual Orientation (if Verbalized by the Patient): Straight or Heterosexual Spiritual care concerns: No Meds Home Medications and Allergies Home Medications Medication Instructions Recorded Confirmed Type cholecalciferol (vitamin D3) 1,250 1,250 mcg PO WEEKLY 11/06/21 11/26/22 History mcg (50,000 unit) capsule losartan 50 mg tablet 50 mg PO DAILY 11/06/21 11/26/22 History metformin 500 mg tablet,extended 500 mg PO BID 11/06/21 11/26/22 History release 24 hr naproxen 500 mg tablet 500 mg PO BID PRN Pain 11/06/21 11/26/22 History spironolactone 50 mg tablet 100 mg PO DAILY 11/06/21 11/26/22 History esomeprazole magnesium 40 mg 40 mg PO DAILY #30 caps 03/20/22 11/26/22 Rx capsule,delayed release (Nexium) polyethylene glycol 3350 17 17 g PO DAILY #238 grams 03/20/22 11/26/22 Rx gram/dose oral powder (Miralax) albuterol sulfate 90 mcg/actuation 2 inh inhalation Q4H PRN shortness 07/04/22 11/26/22 Rx aerosol inhaler (Ventolin HFA) of breath or wheezing #6.7 grams ipratropium 0.5 mg-albuterol 3 mg 3 ml inhalation Q6H PRN shortness 07/04/22 11/26/22 Rx (2.5 mg base)/3 mL nebulization of breath or wheezing #90 mL soln levothyroxine 75 mcg tablet 75 mcg PO DAILY 07/04/22 11/26/22 History (Synthroid) cyanocobalamin (vitamin B-12) 1,000 mcg WEEKLY 10/02/22 11/26/22 History 1,000 mcg/mL injection syringe estradiol 1 mg tablet 1 mg PO DAILY #90 tabs 11/26
[2022-11-27 12:12] LABS: Glucose Point of Care 99 mg/dl (65-105)
[2022-11-27] MEDS: ENOXAPARIN 40 MG/0.4 ML SYRINGE SUB-Q (12:22)
[2022-11-27] MEDS: polyethylene glycoL 3350 17 GM POWD.PACK PO (12:22)
[2022-11-27] MEDS: PANTOPRAZOLE SODIUM IV 40 MG VIAL IV PUSH (12:22)
--- NOTE | 2022-11-27 13:29 | PCCCNOTE ---
On 11/27/22, the student, [Lucy Wagoner ], provided care and completed [facility] documentation on this patient. I have reviewed the student's documentation and agree with the findings.
[2022-11-27 15:22] LABS: Alanine Aminotransferase 46 U/L (6-35); Albumin Level 3.3 g/dL (3.5-5.1); Alkaline Phosphatase 85 U/L (38-126); Anion Gap 3 mmol/L (8-16); Aspartate Amino Transferase 42 U/L (14-36); Bilirubin,Total 0.5 mg/dL (0.2-1.3); Blood Urea Nitrogen 13 mg/dL (7-17); Carbon Dioxide 29 mmol/L (22-30); Chloride 104 mmol/L (98-107); Estimated CRCL calculation 84 ml/min; Estimated Glomerular Filt Rate > 60; Glucose 125 mg/dL (65-110); Sodium 136 mmol/L (137-145)
[2022-11-27 16:22] LABS: D Dimer 1.35 ug/mL (<0.48)
[2022-11-27 17:27] LABS: Glucose Point of Care 109 mg/dl (65-105)
--- NOTE | 2022-11-27 19:37 | PM.DS ---
DS: Admitting Diagnosis Discharge Date 11/27/22 Admitting Diagnosis chest pain DS: Discharge Diagnosis Discharge Diagnosis (1) Chest pain: Qualifiers: Chest pain type: unspecified Qualified Code(s): R07.9 - Chest pain, unspecified Code(s): R07.9 - Chest pain, unspecified Status: Acute (2) GERD (gastroesophageal reflux disease): Code(s): K21.9 - Gastro-esophageal reflux disease without esophagitis Status: Acute (3) Asthma: Code(s): J45.909 - Unspecified asthma, uncomplicated Status: Acute (4) Hypertension: Qualifiers: Hypertension type: unspecified Qualified Code(s): I10 - Essential (primary) hypertension Code(s): I10 - Essential (primary) hypertension Status: Acute (5) Hypothyroidism: Code(s): E03.9 - Hypothyroidism, unspecified Status: Acute (6) Diabetes mellitus type 2 in obese: Code(s): E11.69 - Type 2 diabetes mellitus with other specified complication; E66.9 - Obesity, unspecified Status: Acute DS: Summary Hospital Course Hospital Course: 52-year-old female with past medical history significant for partial thyroidectomy is presenting with chest pain, shortness a breath and diaphoresis. She states it is intermittent and random in can happen at rest or with exertion. She denies any lightheadedness or dizziness. She denies headache or vision changes. She denies a history of panic disorder or panic attacks but does admit to anxiety. Stress test was done and was negative. Troponin x3 was negative. Chest x-ray was within normal limits. D-dimer was noted to be elevated and so a CT was performed showing possible pneumomediastinum versus tracheal diverticula. This could be contributing to her symptoms but due to the tiny size would not require intervention. Would recommend repeat imaging in 2-4 weeks outpatient. Patient also was found to have right-sided sciatica and should be referred to physical therapy. She also has a history of COPD and will need PFTs. Due to some palpitations during her chest pain attacks, she was discharged with an event recorder. She will follow-up with Cardiology as her echo showed mild diastolic heart failure as well as pulmonary hypertension. She will also follow-up with pulmonology. She may need a vascular surgery consult. Please see above and discharge instructions for details. Mildly elevated LFTs of unknown significance noted, follow-up outpatient with a repeat CMP. Time Spent with Patient Time attestation: Total time spent providing and/or coordinating discharge services: DS: Data Data Completed and Pending Labs on day of discharge: Labs from last 24 hours 11/27/22 11/27/22 11/27/22 16:20 15:03 15:03 WBC RBC Hgb Hct MCV MCH MCHC RDW Plt Count MPV Immature Gran % (Auto) Neut % (Auto) Lymph % (Auto) Sawyer % (Auto) Eos % (Auto) Baso % (Auto) Lymph # (Auto) Sawyer # (Auto) Eos # (Auto) Baso # (Auto) Abs Immat Gran (auto) Absolute Neuts (auto) Absolute Nucleated RBC Nucleated RBC % Atypical Lymphocytes Platelet Estimate Anisocytosis Schistocytes D-Dimer 1.35 H Sodium 136 L Potassium 4.0 Chloride 104 Carbon Dioxide 29 Anion Gap 3 L BUN 13 Creatinine 0.90 Estim Creat Clear Calc 84 Estimated GFR > 60 Glucose 125 H POC Capillary Glucose 109 H Hemoglobin A1c Lactic Acid Calcium 9.0 Magnesium Total Bilirubin 0.5 AST 42 H ALT 46 H Alkaline Phosphatase 85 Total Protein 6.0 L Albumin 3.3 L Lipase TSH (Reflex) 11/27/22 11/27/22 11/27/22 11:57 04:42 04:42 WBC RBC Hgb Hct MCV MCH MCHC RDW Plt Count MPV Immature Gran % (Auto) Neut % (Auto) Lymph % (Auto) Sawyer % (Auto) Eos % (Auto) Baso % (Auto) Lymph # (Auto) Sawyer # (Auto) Eos # (Auto)
== END 2022-11-27 20:30 | disposition home or self-care (01) ==
LOC: ANHED 09:53 → ANH2MED 17:30 → ANHIMU 11-27 10:27 → ANH2MED 11-28 11:11 → ANHIMU 11-28 11:11
PROVIDERS: Emergency Medicine; Nurse Practitioner; Admitting Provider Internal Medicine; Emergency Provider Nurse Practitioner Family; PCP Physician Assistant Medical; Visit Provider Student in an Organized Health Care Education/Training Program
DX: R07.9 Chest pain, unspecified (principal); K21.9 Gastro-esophageal reflux disease without esophagitis; J45.909 Unspecified asthma, uncomplicated; I11.0 Hypertensive heart disease with heart failure; I50.30 Unspecified diastolic (congestive) heart failure; R00.2 Palpitations; E89.0 Postprocedural hypothyroidism; E11.69 Type 2 diabetes mellitus with other specified complication; R61 Generalized hyperhidrosis; R06.02 Shortness of breath; E66.01 Morbid (severe) obesity due to excess calories; Z68.43 Body mass index [BMI] 50.0-59.9, adult; I27.20 Pulmonary hypertension, unspecified; F41.9 Anxiety disorder, unspecified; R00.1 Bradycardia, unspecified; R94.31 Abnormal electrocardiogram [ECG] [EKG]; M79.669 Pain in unspecified lower leg; K58.1 Irritable bowel syndrome with constipation; F10.90 Alcohol use, unspecified, uncomplicated; Z79.84 Long term (current) use of oral hypoglycemic drugs; Z79.1 Long term (current) use of non-steroidal anti-inflammatories (NSAID); Z79.51 Long term (current) use of inhaled steroids; Z79.890 Hormone replacement therapy; Z83.3 Family history of diabetes mellitus; Z82.49 Family history of ischemic heart disease and other diseases of the circulatory system
CPT/HCPCS: 36415; 71046; 71275; 78452; 80053; 82948; 83036; 83605; 83690; 83735; 84443; 84484; 85025; 85380; 85610; 85730; 93005; 93017; 93306; 93922; 93970; 96372; 96374; 99285; A9270; A9502; C9113; G0378; J1650; J2785; Q9967

== ENCOUNTER 2023-01-02 09:45 | Outpatient (RCR) | payer BC, SELFPAY ==
--- NOTE | 2022-12-05 16:40 | PTOPEVAL1 ---
Assessment and note entered by Naila Mcintosh, PT Evaluation Information Assessment Status Evaluation Diagnosis Sciatica Onset ~30 years Subjective Information Right side. Has been off and on for 30 years. Sometimes will go away for a few years but all of a sudden for the last couple years. Went through PT last year for knees and didn't get the sciatica addressed. States at night can hardly sleep due to discomfort . Is a side sleeper, can't lay flat on back either . Walking and climbing stairs Assessment PT Clinical Summary Pt presents with complaints of chronic intermittent pain in back and down left leg. Demo' s abnormal pelvic alignment, possible leg length discrepancy, abdominal adhesions, significantly decreased lumbopelvic strength, decreased left hip ROM all likely contributing to her left leg and back pain. Thus patient would benefit from physical therapy to address deficits, reduce pain, and improve function Plan of Care Interventions Electrical Stimulation,Hot Pack/Cold Pack,Manual Therapy,Neuro Re-education,Prosthetic Training, Therapeutic Activities,Therapeutic Exercise, Ultrasound PT Services Indicated Yes Treatment Frequency and 1-2x weekly x 8 weeks Duration These treatments will address the objective and functional deficits as defined above. The patient will be advanced safely and appropriately in order for the patient to progress towards his/her prior level of function. Additional exercises will be introduced and as well as a comprehensive home exercise program upon discharge, if needed, ?to ensure carryover of functional gains achieved in the clinic. This treatment plan has been reviewed and agreement upon by the patient.
--- NOTE | 2022-12-08 09:50 | PCPTNOTE ---
Patient called & cancelled scheduled appointment this date no reason given beside unable to make it in.
--- NOTE | 2023-01-02 13:01 | PTOPDC ---
Assessment and note entered by Naila Mcintosh, PT Assessment Status Discharge Diagnosis Sciatica Onset ~30 years Subjective Information Pt reports feeling 90% improved overall. Last 10% wants to continue strengthening. Ordered green strap belt over internet for her stretches Reported Pain Level Pain Score 0: Self Report Additional Pain Score Comments only got up to a 4/10 after working outside for 3 hours bending and picking up sticks. Assessment PT Clinical Summary Pt reports feeling 90% improved overall reporting remaining 10% as her want to increase her strengthening. She reports her highest level of pain recently at 4/10 and this was with high level activity of picking up sticks for 3 hours. She has met all of her personal goals for therapy and partially met her therapy related goals, having progress significantly in all goals. She demonstrates understanding of continuing strengthening and stretching and reports motivation to continue independent improvement. Thus pt is being discharged from therapy for completing her program.
== END 2023-01-02 13:49 | disposition home or self-care (01) ==
LOC: ANHHIPT 09:45
PROVIDERS: PCP Physician Assistant Medical; Visit Provider Family Medicine
DX: M54.30 Sciatica, unspecified side (principal)
CPT/HCPCS: 97014; 97110; 97112; 97140; 97162; G0283

== ENCOUNTER 2023-03-30 13:15 | Outpatient (CLI) | payer BC, SELFPAY ==
--- NOTE | ~2023-03-30 | MMUS_ITS ---
EXAMINATION: MM diagnostic juliette BI w kobe, US breast RT limited HISTORY: Breast pain, right upper inner quadrant TECHNIQUE: ML, MLO and CC 3-D tomosynthesis images of both breasts were performed and synthetic 2-D i mages were generated. CAD analysis was submitted and interpreted. High resolution right upper inner q uadrant breast ultrasound was performed. COMPARISON: bilateral screening mammogram BREAST PARENCHYMAL COMPOSITION: There are scattered areas of fibroglandular density. FINDINGS: MAMMOGRAPHIC FINDINGS: No suspicious mass or architectural distortion, malignant calcification, skin thickening or retractio n or significant new or developing density is detected. ULTRASOUND: 3:00 near nipple: Parallel circumscribed sonolucency measuring 3 x 6 mm consistent with small cyst No suspicious mass or shadowing, cyst or other significant finding is noted otherwise in the upper in ner quadrant of the right breast. IMPRESSION: 1. Benign findings; no mammographic evidence of malignancy 2. Routine annual mammographic screening is recommended BI-RADS Category 2: Benign finding(s). Reviewed, dictated and finalized at location A. IMPRESSION: 1. Benign findings; no mammographic evidence of malignancy 2. Routine annual mammographic screening is recommended BI-RADS Category 2: Benign finding(s).
== END 2023-03-30 13:16 | disposition home or self-care (01) ==
LOC: ANHIMG 13:18
PROVIDERS: PCP Family Medicine; Visit Provider Obstetrics & Gynecology
DX: N64.4 Mastodynia (principal)
CPT/HCPCS: 76642; 77062; 77066; G0279

== ENCOUNTER 2023-09-02 18:22 | Emergency (ER) | payer BC, SELFPAY ==
--- NOTE | 2023-09-02 18:27 | ED.URI ---
HPI - URI/Sore Throat General Chief Complaint: Upper Respiratory Infection Stated Complaint: COUGH/VOMITING S/P COVID Time Seen by Provider: 09/02/23 18:28 Source: patient Mode of arrival: ambulatory Limitations: no limitations History of Present Illness HPI Narrative: Ginger is a 53-year-old female patient presenting to the clinic today with complaints of cough and vomiting. She reports she has been coughing so hard she has been vomiting. She contacted her primary care provider and he center and some Linda Christine and not is not helping the cough. States she had COVID the week of and has had cough ever since. She reports some shortness of breath but she does have a history of asthma. Also has history of congestive heart failure. She denies any recent weight gain or increase in swelling in her legs. Denies any fever chills. At time she cough she is able to bring up some phlegm and is white MD elicited complaint: cough Related Data Home Medications Medication Instructions Recorded Confirmed cholecalciferol (vitamin D3) 1,250 1,250 mcg PO WEEKLY 11/06/21 09/02/23 mcg (50,000 unit) capsule losartan 50 mg tablet 50 mg PO DAILY 11/06/21 11/26/22 metformin 500 mg tablet,extended 500 mg PO BID 11/06/21 11/26/22 release 24 hr levothyroxine 75 mcg tablet 75 mcg PO DAILY 07/04/22 11/26/22 (Synthroid) Allergies Allergy/AdvReac Type Severity Reaction Status Date / Time adhesive AdvReac Unknown RASH Verified 09/02/23 18:34 Review of Systems Review of Systems: Pertinent positives per HPI. Patient denies any fever, chills, rash, headache, visual changes, dizziness, shortness of breath, chest pain, palpitations, nausea, vomiting, diarrhea, constipation, abdominal pain, or any urinary issues. [facility] Past Medical History Medical History Asthma CHF (congestive heart failure) COPD (chronic obstructive pulmonary disease) Diabetes Diastolic HF (heart failure) History of hypertension Hypertension Hypothyroidism Irritable bowel syndrome with constipation Obesity Obesity, morbid, BMI 40.0-49.9 Peripheral artery disease mild, AUBREY 11/27/22 Pre-diabetes Sciatica Screening mammogram, encounter for Sigmoid diverticulitis Urinary incontinence Weight loss counseling, encounter for Surgical History Surgical History H/O colonoscopy History of dilatation and curettage 1996 for miscarriage History of endoscopy History of excision of mass 2012 - Excision of RUQ abdominal wall lipoma. History of partial hysterectomy 2005 supracervical hysterectomy History of thyroidectomy 2008 History of tonsillectomy History of tubal ligation 1997 Previous section 1988 1990 1995 1997 Family History Family History Father Hypertension Family history of chronic obstructive pulmonary disease Family history of diabetes mellitus in first degree relative Family history of heart disease in male family member before age 55 Asthma Mother Cerebrovascular accident Family history of heart disease in male family member before age 55 Grandparent Hypertension paternal grandmother maternal grandmother Cerebrovascular accident maternal grandmother Family history of heart disease in male family member before age 55 paternal grandmother maternal grandfather maternal grandmother Lung cancer paternal grandfather Breast cancer paternal grandmother Other Family history of allergic disorder Social History Social History Social History: Patient lives at home with her and children. She wishes to be a full code. She does not have a healthcare POA, but designates her to be medical decision maker if needed. Code st
[2023-09-02 18:30] VITALS: BP 144/86; PULSE 92; RESP 16; TEMP 36.4; O2SAT 98
== END 2023-09-02 18:39 | disposition home or self-care (01) ==
PROVIDERS: Emergency Provider Nurse Practitioner Family; PCP Family Medicine
DX: R05.9 Cough, unspecified (principal); U09.9 Post COVID-19 condition, unspecified; J44.9 Chronic obstructive pulmonary disease, unspecified; E11.9 Type 2 diabetes mellitus without complications; E66.01 Morbid (severe) obesity due to excess calories; Z68.42 Body mass index [BMI] 45.0-49.9, adult; I73.9 Peripheral vascular disease, unspecified; I11.0 Hypertensive heart disease with heart failure; I50.9 Heart failure, unspecified; E89.0 Postprocedural hypothyroidism; Z90.711 Acquired absence of uterus with remaining cervical stump; E11.51 Type 2 diabetes mellitus with diabetic peripheral angiopathy without gangrene; Z79.84 Long term (current) use of oral hypoglycemic drugs
CPT/HCPCS: 99213; G0463

== ENCOUNTER 2024-02-11 17:27 | Emergency (ER) | payer BC, SELFPAY ==
--- NOTE | ~2024-02-11 | CT_ITS ---
EXAMINATION: CT abdomen pelvis w con DATE: 02/11/2024 19:26 INDICATION: Abdominal pain TECHNIQUE: Computed tomography (CT) of the abdomen and pelvis was performed with 100 mL Omnipaque-350 intravenous contrast. Automated exposure control and iterative reconstruction technique were employe d. The dose-length product was 1541.82 mGy-cm. COMPARISON: 10/23/2021 FINDINGS: Mild dependent atelectasis in bilateral lower lobes. Heart size is normal. No pericardial or pleural effusion. Small sliding-type hiatal hernia. Liver, gallbladder, spleen, pancreas, bilateral adrenal g lands are normal. 9 mm exophytic cyst at the upper pole the left kidney. 3 mm nonobstructing stone at a lower pole calyx of the right kidney. Small bowel obstruction with mild dilation of the proximal i leum which extends to a pseudofeces sign at the transition point with decompression of the more dista l ileum extending to the ileocecal valve. There is mild colonic diverticulosis with a sigmoid predomi nance. There is no adjacent inflammatory change to suggest diverticulitis. Normal appendix. Bladder, uterus and bilateral adnexa are unremarkable. Small amount of either reactive or physiologic free fl uid in the cul-de-sac. No abscess or free intraperitoneal gas. No pathologically enlarged abdominal o r pelvic lymphadenopathy. Mild lower lumbar levocurvature. 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 Mild lumbar and moderate lower thoracic spondylosis. IMPRESSION: 1. Small bowel obstruction with transition point in the anterior pelvis. 2. Nonobstructing 3 mm right renal stone. 3. Small sliding-type hiatal hernia. Reviewed, dictated and finalized at location A.
--- NOTE | 2024-02-11 17:35 | ECG_ITS ---
SEE SCANNED COPY FOR CONFIRMED REPORT MTDD
[2024-02-11 17:40] VITALS: BP 159/87; PULSE 96; RESP 20; TEMP 36.3; O2SAT 98
[2024-02-11 17:55] LABS: Basophils Absolute Auto 0.03 K/mm3 (0.00-0.10); Basophils Percent Auto 0.3 % (0.0-1.0); Eosinophils Absolute Auto 0.13 K/mm3 (0.02-0.50); Eosinophils Percent Auto 1.4 % (1.0-6.0); Hematocrit 42.2 % (35.0-49.0); Hemoglobin 12.6 g/dL (12.0-15.0); Immature Granulocyte Absolute 0.04 K/mm3 (0.00-0.00); Immature Granulocyte Percent A 0.4 % (0.0-0.0); Lymphocytes Absolute Auto 1.57 K/mm3 (1.10-4.50); Lymphocytes Percent Auto 16.7 % (18.0-42.0); Mean Corpuscular HGB Conc 29.9 g/dL (32-36); Mean Corpuscular Volume 83.6 fL (78.0-102.0); Mean Platelet Volume 12.1 fl (9.2-11.8); Monocytes Absolute Auto 0.58 K/mm3 (0.10-0.90); Monocytes Percent Auto 6.2 % (2.0-11.0); Neutrophils Absolute Auto 7.03 K/mm3 (1.70-7.20); Platelet Count Result 187 K/mm3 (150-420); Red Blood Count 5.05 M/mm3 (4.20-5.40); Red Cell Distribution Width 15.5 % (11.6-14.4); White Blood Count 9.4 K/mm3 (4.8-10.8)
[2024-02-11 18:09] LABS: Partial Thromboplastin Time 28.2 Sec (23.9-30.70)
[2024-02-11 18:13] LABS: Lactic Acid Reflex 0.9 mmol/L (0.4-2.0)
[2024-02-11 18:16] LABS: Appearance Urine Clear (Clear); Bilirubin Urine Negative (Negative); Blood Urine Negative (Negative); Color Urine Light Yellow (Yellow); Glucose Urine UA 3+ (Negative); Ketones Urine Negative (Negative); Leukocyte Esterase Ur Negative LEU/UL (Negative); Nitrate Urine Negative (Negative); Protein Urine Negative (Negative); Specific Grav Ur 1.025 (1.010-1.020); Urobilinogen Urine 0.2 mg/dL (0.2-1.0)
[2024-02-11 18:16] LABS: Alanine Aminotransferase 25 U/L (14-59); Albumin Level 3.6 g/dL (3.4-5.0); Alkaline Phosphatase 89 U/L (46-116); Anion Gap 10 mmol/L (4-12); Aspartate Amino Transferase 16 U/L (15-37); Bilirubin,Total 0.4 mg/dL (0.00-1.00); Blood Urea Nitrogen 18 mg/dL (7-18); Calcium 9.1 mg/dL (8.5-10.1); Carbon Dioxide 24 mmol/L (21-32); Chloride 105 mmol/L (98-108); Estimated Glomerular Filt Rate > 60; Glucose 116 mg/dL (70-99); Lipase 27 U/L (16-77); Osmolality Calculated 290 mOsm/kg (285-295); Sodium 139 mmol/L (136-145); Total Protein 7.1 g/dL (6.4-8.2)
[2024-02-11 18:21] LABS: Troponin I < 4.0 ng/L (0.00-60.4)
[2024-02-11 18:21] LABS: Add Urine Microscopic? YES; Bacteria Urine 1+ /hpf; RBC Urine 0-2 /hpf (0-2); Squamous Epithelial Cell Urine Rare /hpf (Few); WBC Urine 0-3 /hpf (0-3)
[2024-02-11 18:45] VITALS: BP 147/87; PULSE 91; RESP 18; TEMP 36.9; O2SAT 98
[2024-02-11] MEDS: SODIUM CHLORIDE 0.9% IV 1,000 ML 999 ML IV CONT (18:51)
[2024-02-11] MEDS: PANTOPRAZOLE SODIUM IV 40 MG VIAL IV PUSH (18:51)
--- NOTE | 2024-02-11 19:30 | PC.NURSE ---
Pt resting and back from CT, she still c/o feeling nauseated and pain is 10/10. ERp Dr Mccall informed and order obtained.
[2024-02-11] MEDS: ONDANSETRON INJ 4 MG/2 ML VIAL IV PUSH (19:36)
[2024-02-11 19:37] VITALS: BP 162/85; PULSE 88; RESP 20; O2SAT 100
[2024-02-11] MEDS: KETOROLAC 30 MG/ML VIAL (*BKC) IV PUSH (19:37)
--- NOTE | 2024-02-11 20:05 | ED.ABDPAIN ---
HPI - Abdominal Pain General Chief Complaint: Urogenital-Female Stated Complaint: right flank pain Time Seen by Provider: 02/11/24 17:35 Source: patient and family Mode of arrival: ambulatory Limitations: no limitations History of Present Illness HPI narrative: this is a 53-year-old female presents with abdominal pain started last night but has intensified as the day went on with nausea episodes of vomiting currently no vomiting no fever chills. Patient also states that she has been having right flank discomfort with no dysuria no hematuria no fever chills no diarrhea constipation. Patient had a bowel obstruction and was seen by surgery at [facility] approximately 2 years ago. Patient has a history of COPD, CHF with diastolic dysfunction diabetes type 2 with history of diverticulitis and morbid obesity. MD elicited complaint: abdominal pain and flank pain Onset (ago): day(s) Pain Consistency: constant Location: RLQ and R flank Severity: severe Pain scale (0-10): 10 Quality: aching, fullness and sharp Radiation: RLQ Exacerbating factors: eating Related Data Home Medications Medication Instructions Recorded Confirmed cholecalciferol (vitamin D3) 1,250 1,250 mcg PO WEEKLY 11/06/21 02/11/24 mcg (50,000 unit) capsule hydrochlorothiazide 12.5 mg capsule 12.5 mg PO DAILY 01/20/24 02/11/24 sacubitril 24 mg-valsartan 26 mg 1 tablet PO BID 01/20/24 02/11/24 tablet (Entresto) meloxicam 15 mg tablet 15 mg PO PRN PRN Pain 02/11/24 02/11/24 Allergies Allergy/AdvReac Type Severity Reaction Status Date / Time adhesive AdvReac Unknown RASH Verified 02/11/24 17:28 Review of Systems Review of Systems: All systems reviewed & are unremarkable except as noted in HPI and below PMFSH Past Medical History Medical History Asthma CHF (congestive heart failure) COPD (chronic obstructive pulmonary disease) Diabetes Diastolic HF (heart failure) History of hypertension Hypertension Hypothyroidism Irritable bowel syndrome with constipation Obesity Obesity, morbid, BMI 40.0-49.9 Peripheral artery disease mild, AUBREY 11/27/22 Pre-diabetes Sciatica Screening mammogram, encounter for Sigmoid diverticulitis Urinary incontinence Weight loss counseling, encounter for Surgical History Surgical History H/O colonoscopy History of dilatation and curettage 1996 for miscarriage History of endoscopy History of excision of mass 2012 - Excision of RUQ abdominal wall lipoma. History of partial hysterectomy 2005 supracervical hysterectomy History of thyroidectomy 2008 History of tonsillectomy History of tubal ligation 1997 Previous section 1988 1990 1995 1997 Family History Family History Father Hypertension Family history of chronic obstructive pulmonary disease Family history of diabetes mellitus in first degree relative Family history of heart disease in male family member before age 55 Asthma Mother Cerebrovascular accident Family history of heart disease in male family member before age 55 Grandparent Hypertension paternal grandmother maternal grandmother Cerebrovascular accident maternal grandmother Family history of heart disease in male family member before age 55 paternal grandmother maternal grandfather maternal grandmother Lung cancer paternal grandfather Breast cancer paternal grandmother Other Family history of allergic disorder Social History Social History Social History: Patient lives at home with her and children. She wishes to be a full code. She does not have a healthcare POA, but designates her to be medical decision maker if needed. Code status full code Smoking status: Never smoker
--- NOTE | 2024-02-11 20:07 | PC.NURSE ---
ERP Dr montoya in to discuss CT results. POC to transfer to [place]. Pt states she was in [facility] in the past for SBO and saw Dr Mondragon. Initial call placed to [facility]. Awaiting call back to give info.
--- NOTE | 2024-02-11 20:37 | PC.NURSE ---
Call back from [place], pt accepted for transfer from hospitalist jaimie Shore to send and they will evaluate. Pt to go to Rm [id number], # received to give report.
[2024-02-11] MEDS: SODIUM CHLORIDE 0.9% IV 1,000 ML 150 ML IV CONT (20:51)
[2024-02-11 21:20] VITALS: BP 155/84; PULSE 87; RESP 18; TEMP 36.9; O2SAT 100
--- NOTE | 2024-02-17 13:21 | PC.NURSE ---
noted blood culture, no growth 5 days
== END 2024-02-11 21:20 | disposition short-term general hospital (02) ==
PROVIDERS: Emergency Provider Emergency Medicine
DX: K56.609 Unspecified intestinal obstruction, unspecified as to partial versus complete obstruction (principal); I50.9 Heart failure, unspecified; J44.9 Chronic obstructive pulmonary disease, unspecified; E11.9 Type 2 diabetes mellitus without complications; E66.01 Morbid (severe) obesity due to excess calories; Z68.43 Body mass index [BMI] 50.0-59.9, adult; J45.909 Unspecified asthma, uncomplicated; I11.0 Hypertensive heart disease with heart failure; E03.9 Hypothyroidism, unspecified
CPT/HCPCS: 36415; 74177; 80053; 81001; 83605; 83690; 84484; 85025; 85610; 85730; 87040; 93005; 96361; 96374; 96375; 99285; C9113; J1885; J2405; J7030; Q9967

== ENCOUNTER 2024-02-11 21:52 | Inpatient (IN) | payer BC, SELFPAY ==
--- NOTE | ~2024-02-11 | XR_ITS ---
EXAMINATION: XR sm bowel follow through DATE: 02/12/2024 14:24 INDICATION: Small bowel obstruction. TECHNIQUE: Oral contrast was administered, and a time course of radiographs of the abdomen was obtain ed. Fluoroscopy of the small bowel was not performed. Fluoroscopy exposure time was 0 minutes. The to devora number of images was 9. COMPARISON: CT abdomen and pelvis 02/11/24 FINDINGS: There are dilated loops of ileum. Transit time from the stomach to proximal colon was approximately 1 hour. IMPRESSION: 1. Dilated loops of ileum with prompt passage of contrast to the colon, consistent with adynamic ileu s versus partial small bowel obstruction. Reviewed, dictated and finalized at location A. IMPRESSION: 1. Dilated loops of ileum with prompt passage of contrast to the colon, consist ent with adynamic ileus versus partial small bowel obstruction.
--- NOTE | 2024-02-11 21:57 | ADMGEN ---
This patient, Ginger Delgado, was admitted to 2 Medical Room 257-01. Patient/family oriented to hospital policies and general routines including ID bracelet, bed and alarms, visiting hours, pain management, procedures, bathroom and other care routines, personal items, smoking policy, room service/diet, and visiting hours. Information on how to activate the Rapid Response Team has been discussed. Patient/Family are encouraged to report perceived risks to care and to ask questions if they do not understand what they are told or what they should do.
[2024-02-11 22:05] VITALS: BP 147/72; PULSE 87; RESP 18; TEMP 36.1; O2SAT 97; BMI 53.3
--- NOTE | 2024-02-11 22:21 | PM.IMHP ---
H&P: HPI History of Present Illness Date/Time: 02/11/24 22:21 Chief Complaint: abdominal pain Narrative: patient is a 53-year-old female with history of diabetes, COPD, hypertension, hypothyroidism comes to the emergency room complaining nausea and vomiting but no fever and chills but no abdominal distention. Patient has noted some form right flank discomfort with no dysuria no hematuria or diarrhea. Patient was diagnosed with small-bowel obstruction about 2 years ago patient is morbidly obese and has right heart failure. Patient pain is 4/10 Review of Systems Review of Systems: All systems reviewed & are unremarkable except as noted in HPI and below PMFSH Past Medical History Medical History Asthma CHF (congestive heart failure) COPD (chronic obstructive pulmonary disease) Diabetes Diastolic HF (heart failure) History of hypertension Hypertension Hypothyroidism Irritable bowel syndrome with constipation Obesity Obesity, morbid, BMI 40.0-49.9 Peripheral artery disease mild, AUBREY 11/27/22 Pre-diabetes Sciatica Screening mammogram, encounter for Sigmoid diverticulitis Urinary incontinence Weight loss counseling, encounter for Surgical History Surgical History H/O colonoscopy History of dilatation and curettage 1996 for miscarriage History of endoscopy History of excision of mass 2012 - Excision of RUQ abdominal wall lipoma. History of partial hysterectomy 2005 supracervical hysterectomy History of thyroidectomy 2008 History of tonsillectomy History of tubal ligation 1997 Previous section 1988 1991 1996 1997 Family History Family History Father Hypertension Family history of chronic obstructive pulmonary disease Family history of diabetes mellitus in first degree relative Family history of heart disease in male family member before age 55 Asthma Mother Cerebrovascular accident Family history of heart disease in male family member before age 55 Grandparent Hypertension paternal grandmother maternal grandmother Cerebrovascular accident maternal grandmother Family history of heart disease in male family member before age 55 paternal grandmother maternal grandfather maternal grandmother Lung cancer paternal grandfather Breast cancer paternal grandmother Other Family history of allergic disorder Social History Social History Social History: Patient lives at home with her and children. She wishes to be a full code. She does not have a healthcare POA, but designates her to be medical decision maker if needed. Code status full code Smoking status: Never smoker Second hand tobacco smoke exposure: No Alcohol intake: current Drinks per week: 1 Alcohol use details: 1-2 times per month. Substance use: never Substance use type: does not use Do You Feel Safe in your Home?: Yes Lack of Transportation: No Lack of Food: Never True Current Housing: I Have Housing Concerned About Future Housing: No Difficulty Paying Gas/Electric Bills: YES Difficulty Paying for Meds: YES Currently Unemployed: No Education: Associate Degree Difficulty w/ Childcare or Family Care: No Living arrangements: other Additional living arrangements comments: spouse Occupation/Education: occupation Additional occupation/education comments: [employer] Gender identity (if verbalized by the patient): Female Sexual Orientation (if Verbalized by the Patient): Straight or Heterosexual Spiritual care concerns: No Meds Home Medications and Allergies Home Medications Medication Instructions Recorded Confirmed Type cholecalciferol (vitamin D3) 1,250 1,250 mcg PO WEEKLY 11/06
[2024-02-11 23:35] LABS: Hematocrit 39.3 % (37.0-47.0); Hemoglobin 11.9 g/dL (12.0-15.0); Mean Corpuscular HGB Conc 30.3 g/dl (32-36); Mean Corpuscular Hemoglobin 25.5 pg (26-34); Mean Corpuscular Volume 84.3 fl (80-100); Mean Platelet Volume 11.9 fl (7.4-10.4); Platelet Count Result 169 k/mm3 (150-375); Red Blood Count 4.66 M/mm3 (4.2-5.4); Red Cell Distribution Width 15.7 % (11.5-14.5)
[2024-02-11] MEDS: DEXTROSE 5%/0.45% SOD CHL 1,000 ML 100 ML IV CONT (23:37)
[2024-02-11 23:46] LABS: Alanine Aminotransferase 18 U/L (6-35); Albumin Level 3.5 g/dL (3.5-5.1); Alkaline Phosphatase 84 U/L (38-126); Anion Gap 6 mmol/L (4-12); Aspartate Amino Transferase 20 U/L (14-36); Bilirubin,Total 0.5 mg/dL (0.2-1.3); Blood Urea Nitrogen 16 mg/dL (7-17); Carbon Dioxide 21 mmol/L (22-30); Chloride 110 mmol/L (98-107); Estimated CRCL calculation 94 ml/min; Estimated Glomerular Filt Rate > 60; Glucose 113 mg/dL (65-110); Potassium 4.3 mmol/L (3.4-5.0); Sodium 137 mmol/L (137-145)
[2024-02-11 23:53] LABS: Hemoglobin A1C 5.6 % (<5.7)
[2024-02-11] MEDS: MORPHINE SULFATE (*CRX) 2 MG/ML INJ 1 MG IV PUSH (23:57)
[2024-02-12 06:01] VITALS: BP 136/80; PULSE 91; RESP 18; TEMP 36.6; O2SAT 98
[2024-02-12] MEDS: PANTOPRAZOLE SODIUM IV 40 MG VIAL IV PUSH ×2 (08:55→21:13)
[2024-02-12] MEDS: ENOXAPARIN 40 MG/0.4 ML SYRINGE SUB-Q (08:55)
[2024-02-12] MEDS: DEXTROSE 5%/0.45% SOD CHL 1,000 ML 100 ML IV CONT ×2 (10:07→23:30)
--- NOTE | 2024-02-12 14:22 | PM.IMPN ---
Progress Note: A&P Assessment and Plan (1) SBO (small bowel obstruction): Code(s): K56.609 - Unspecified intestinal obstruction, unspecified as to partial versus complete obstruction Status: Inactive Assessment and Plan: CT abdomen pelvis showing small bowel obstruction with transition point in the anterior pelvis. General surgery consult. NG was not placed in the ED . NPO for now. IV fluids continued IV Protonix and Zofran p.r.n.. Blood cultures pending. Small-bowel follow-through ordered. (2) Hypertension: Qualifiers: Hypertension type: unspecified Qualified Code(s): I10 - Essential (primary) hypertension Code(s): I10 - Essential (primary) hypertension Status: Acute Assessment and Plan: Continue home medications. Monitor blood pressure. (3) Hypothyroidism: Code(s): E03.9 - Hypothyroidism, unspecified Status: Acute Assessment and Plan: Continue Synthroid. (4) Diabetes mellitus type 2 in obese: Code(s): E11.69 - Type 2 diabetes mellitus with other specified complication; E66.9 - Obesity, unspecified Status: Acute Assessment and Plan: Insulin Lispro sliding scale, Accu-checks qAc and HS and Hold oral hypoglycemics Initiate hypoglycemic precautions HgbA1c 5.6 (5) COPD (chronic obstructive pulmonary disease): Code(s): J44.9 - Chronic obstructive pulmonary disease, unspecified Status: Acute Assessment and Plan: Continue daily inhalers. Not in an acute exacerbation. Plan small-bowel obstruction. COPD Patient advice to quit smoking. Bronchodilators. chest x-ray 2D echo EF 65% 2023Keeping BMI less than 25. Routine exercises. Evaluation for home O2 if saturations less than 88% on room air Follow-up with primary care and bpm architect routine DM Optimize JONATHAN-inhibitor and statin Routine glucose monitoring. Watch for Hypoglycemia. BMI goal < 25 Yearly eye exam and foot exam Exercise, Diet ( low salt- low carb) Weight loss Routinely check for urine microalbuminuria starting patient on sliding scale will hold metformin Heart failure with preserved ejection fraction. Lipid panel, TSH,liver function test, TTE ejection fraction 65% done in 2023 Optimize Jonathan inhibitors and beta-blockers with Entresto, hydrochlorothiazide, spironolactone Daily weights Antiplatelet & Statin therapy Loop diuretics as indicate Patient educated about titrating diuretics at home based on weight blood pressure and symptoms. Optimize blood pressure < 130/80 OBESITY Monitor physical inactivity. Stress monitoring and eating disorder. Referral to weight loss clinic. Weight bias and stigma screening. BMI Class Diet and exercise counseling done GERD well controlled on esomeprazole 40 mg in the morning but while she was on a GLP she was having worsening nocturnal regurgitation.? component of known hiatal hernia Continue esomeprazole 40 mg daily and if symptoms return start Pepcid OTC 20 mg HS. Consider increasing esomeprazole BID if no change history of gastric reflux continue Protonix. History of asthma continue inhalers. History of hypertension continue losartan Aldactone.Patient is NPO except meds history of hypothyroidism continue levothyroxine. The Subjective Date/time seen: 02/12/24 14:22 Interval history: Patient continued to have abdominal pain. Unfortunately General surgery was not consulted overnight so I was able to get a hold of on-call general surgeon and although he will be able to see the patient today he is advising small-bowel follow-through with possible NG placement depending on a complete versus partial obstruction. Patient is not having any gas her head she had a bowel movement since she was admitted. Exam Narrative: GENERAL: Comfortable, no acute distress HENMT: moist mucous membranes EYES: EOM intact b/l NECK: no lymphadenopathy RESPIRATORY: clear
[2024-02-12 14:35] VITALS: BP 137/99; PULSE 98; RESP 16; TEMP 36.3; O2SAT 98
[2024-02-12] MEDS: SACUBITRIL/VALSARTAN 24-26 MG TABLET 1 TAB PO (16:57)
[2024-02-12 17:07] LABS: Glucose Point of Care 115 mg/dl (65-105)
[2024-02-12] MEDS: WITCH HAZEL 40 PADS 1 PAD TOPICAL (18:02)
[2024-02-12 21:34] VITALS: BP 115/73; PULSE 81; RESP 18; TEMP 36.8; O2SAT 100
[2024-02-12 22:23] LABS: Glucose Point of Care 103 mg/dl (65-105)
[2024-02-12 22:40] LABS: Hematocrit 38.4 % (37.0-47.0); Hemoglobin 11.6 g/dL (12.0-15.0); Mean Corpuscular HGB Conc 30.2 g/dl (32-36); Mean Corpuscular Hemoglobin 25.7 pg (26-34); Mean Platelet Volume 12.1 fl (7.4-10.4); Platelet Count Result 154 k/mm3 (150-375); Red Blood Count 4.52 M/mm3 (4.2-5.4); Red Cell Distribution Width 15.9 % (11.5-14.5); White Blood Count 5.9 K/mm3 (4.5-10.0)
[2024-02-12 22:50] LABS: Alanine Aminotransferase 16 U/L (6-35); Albumin Level 3.6 g/dL (3.5-5.1); Alkaline Phosphatase 82 U/L (38-126); Anion Gap 4 mmol/L (4-12); Aspartate Amino Transferase 17 U/L (14-36); Bilirubin,Total 0.5 mg/dL (0.2-1.3); Blood Urea Nitrogen 11 mg/dL (7-17); Calcium 9.3 mg/dL (8.4-10.2); Carbon Dioxide 25 mmol/L (22-30); Chloride 109 mmol/L (98-107); Estimated CRCL calculation 76 ml/min; Estimated Glomerular Filt Rate 58; Glucose 111 mg/dL (65-110); Potassium 3.6 mmol/L (3.4-5.0); Sodium 138 mmol/L (137-145)
[2024-02-13] MEDS: LEVOTHYROXINE SODIUM 75 MCG TABLET PO (05:59)
[2024-02-13 07:13] VITALS: BP 127/73; PULSE 75; RESP 18; TEMP 36.6; O2SAT 98
[2024-02-13 08:00] VITALS: BP 128/68; PULSE 70; RESP 18; TEMP 36.5; O2SAT 97
[2024-02-13 08:26] LABS: Glucose Point of Care 106 mg/dl (65-105)
[2024-02-13] MEDS: SACUBITRIL/VALSARTAN 24-26 MG TABLET 1 TAB PO (08:37)
[2024-02-13] MEDS: hydroCHLOROthiazide 12.5 MG CAPSULE PO (08:38)
[2024-02-13] MEDS: SPIRONOLACTONE 50 MG TABLET 100 MG PO (08:38)
[2024-02-13] MEDS: EMPAGLIFLOZIN 25 MG TABLET PO (08:38)
[2024-02-13] MEDS: ASPIRIN 81 MG CHEWABLE TABLET PO (08:38)
[2024-02-13] MEDS: PANTOPRAZOLE SODIUM IV 40 MG VIAL IV PUSH (08:43)
[2024-02-13] MEDS: ENOXAPARIN 40 MG/0.4 ML SYRINGE SUB-Q (08:43)
--- NOTE | 2024-02-13 10:43 | PM.CNGS ---
Assessment and Plan Assessment and plan (1) SBO (small bowel obstruction): Code(s): K56.609 - Unspecified intestinal obstruction, unspecified as to partial versus complete obstruction Status: Acute Assessment and Plan: Exam completely benign this morning, agree with advancement of diet, okay to discharge from surgical standpoint if tolerating diet History of Present Illness Consult details Consult date: 02/13/24 Reason for consult: abdominal pain Requesting physician: Jessie Yu PA-C Narrative: The patient is a 53-year-old female that presented from an outside hospital complaining for the abdominal pain, nausea and vomiting. The patient reports these symptoms are similar to her small-bowel obstruction symptomatology. The patient reports she has had multiple episodes of small-bowel obstruction in the past. Patient has had multiple abdominal surgeries. Workup, including imaging, was significant for recurrent small-bowel obstruction. Patient was admitted to the medical service and started on conservative therapy with bowel rest and IV hydration. Subsequent small bowel series, which I reviewed, was significant for ileus versus partial small bowel obstruction. Of note, she did have passage of the contrast into the colon within 1 hour. Upon evaluation today, the patient reports she feels much better. Her pain is now resolved and she is having normal bowel function. She has been tolerating a clear liquid diet which was advanced this morning to a heart healthy diet. Review of Systems Review of Systems: All systems reviewed & are unremarkable except as noted in HPI and below PMFSH Past Medical History Medical History Asthma CHF (congestive heart failure) COPD (chronic obstructive pulmonary disease) Diabetes Diastolic HF (heart failure) History of hypertension Hypertension Hypothyroidism Irritable bowel syndrome with constipation Obesity Obesity, morbid, BMI 40.0-49.9 Peripheral artery disease mild, AUBREY 11/27/22 Pre-diabetes Sciatica Screening mammogram, encounter for Sigmoid diverticulitis Urinary incontinence Weight loss counseling, encounter for Surgical History Surgical History H/O colonoscopy History of dilatation and curettage 1996 for miscarriage History of endoscopy History of excision of mass 2012 - Excision of RUQ abdominal wall lipoma. History of partial hysterectomy 2005 supracervical hysterectomy History of thyroidectomy 2008 History of tonsillectomy History of tubal ligation 1997 Previous section 1988 1990 1995 1997 Family History Family History Father Hypertension Family history of chronic obstructive pulmonary disease Family history of diabetes mellitus in first degree relative Family history of heart disease in male family member before age 55 Asthma Mother Cerebrovascular accident Family history of heart disease in male family member before age 55 Grandparent Hypertension paternal grandmother maternal grandmother Cerebrovascular accident maternal grandmother Family history of heart disease in male family member before age 55 paternal grandmother maternal grandfather maternal grandmother Lung cancer paternal grandfather Breast cancer paternal grandmother Other Family history of allergic disorder Social History Social History Social History: Patient lives at home with her and children. She wishes to be a full code. She does not have a healthcare POA, but designates her to be medical decision maker if needed. Code status full code Smoking status: Never smoker Second hand tobacco smoke exposure: No Alcohol intake: current Drinks per week: 1 Alcohol use
--- NOTE | 2024-02-13 11:15 | PM.DS ---
DS: Admitting Diagnosis Discharge Date 02/13/24 Admitting Diagnosis Small-bowel obstruction DS: Discharge Diagnosis Discharge Diagnosis (1) SBO (small bowel obstruction): Code(s): K56.609 - Unspecified intestinal obstruction, unspecified as to partial versus complete obstruction Status: Inactive (2) Hypertension: Qualifiers: Hypertension type: unspecified Qualified Code(s): I10 - Essential (primary) hypertension Code(s): I10 - Essential (primary) hypertension Status: Acute (3) Hypothyroidism: Code(s): E03.9 - Hypothyroidism, unspecified Status: Acute (4) Diabetes mellitus type 2 in obese: Code(s): E11.69 - Type 2 diabetes mellitus with other specified complication; E66.9 - Obesity, unspecified Status: Acute (5) COPD (chronic obstructive pulmonary disease): Code(s): J44.9 - Chronic obstructive pulmonary disease, unspecified Status: Acute DS: Summary Hospital Course Hospital Course: Patient is a 53-year-old female with history of diabetes, COPD, hypertension, hypothyroidism comes to the emergency room complaining nausea and vomiting but no fever and chills but no abdominal distention.? Patient has noted some form right flank discomfort with no dysuria no hematuria or diarrhea.? Patient was diagnosed with small-bowel obstruction about 2 years ago but did not require surgical intervention at that time. CT abdomen pelvis showing small bowel obstruction with transition point in the anterior pelvis. NG tube was not placed in the ED. Patient was put on IV fluids and given Zofran for her nausea. Small-bowel follow-through was performed and contrast went the way through the colon diagnosing her with a partial obstruction versus adynamic ileus. She was then started on a clear liquid diet. Patient's bowel function returned she was able to have a bowel movement. Patient's pain resolved. General surgery did see the patient and cleared her for discharge. Time Spent with Patient Time attestation: Total time spent providing and/or coordinating discharge services: Exam Narrative: GENERAL: Comfortable, no acute distress HENMT: moist mucous membranes EYES: EOM intact b/l NECK: no lymphadenopathy RESPIRATORY: clear to auscultation, no increased respiratory effort CARDIO: Regular rate and rhythm GI: nontender, bowel sounds present SKIN/EXTREMITIES: no rashes, no edema, no redness or tenderness NEURO: PROM intact, answers questions appropriately, A&O x4 DS: Data Data Completed and Pending Labs on day of discharge: Labs from last 24 hours 02/13/24 02/12/24 02/12/24 08:15 22:34 21:25 WBC 5.9 RBC 4.52 Hgb 11.6 L Hct 38.4 MCV 85.0 MCH 25.7 L MCHC 30.2 L RDW 15.9 H Plt Count 154 MPV 12.1 H Sodium 138 Potassium 3.6 Chloride 109 H Carbon Dioxide 25 Anion Gap 4 BUN 11 D Creatinine 1.00 Estim Creat Clear Calc 76 Estimated GFR 58 L Glucose 111 H POC Capillary Glucose 106 H 103 Calcium 9.3 Total Bilirubin 0.5 AST 17 ALT 16 Alkaline Phosphatase 82 Total Protein 7.0 Albumin 3.6 02/12/24 16:56 WBC RBC Hgb Hct MCV MCH MCHC RDW Plt Count MPV Sodium Potassium Chloride Carbon Dioxide Anion Gap BUN Creatinine Estim Creat Clear Calc Estimated GFR Glucose POC Capillary Glucose 115 H Calcium Total Bilirubin AST ALT Alkaline Phosphatase Total Protein Albumin Preliminary micro results at discharge 02/11/24 23:30 Blood Culture - Preliminary Blood 02/11/24 23:30 Blood Culture - Preliminary Blood Discharge Plan Discharge Consulting providers: Stephany Gomez Discharging Clinician: Jessie Yu Patient Disposition: Home, Self-Care Activity: no preference Diet: high fiber Discharge Instructions: Discharge disposition: Take medications as prescribed Monitor blood pressures Avoid
[2024-02-13 13:53] LABS: Glucose Point of Care 83 mg/dl (65-105)
== END 2024-02-13 12:50 | disposition home or self-care (01) | DRG 389 ==
PROVIDERS: Admitting Provider Internal Medicine; PCP Family Medicine; Visit Provider Internal Medicine
DX: K56.609 Unspecified intestinal obstruction, unspecified as to partial versus complete obstruction (principal); I50.32 Chronic diastolic (congestive) heart failure; Z68.43 Body mass index [BMI] 50.0-59.9, adult; I11.0 Hypertensive heart disease with heart failure; J44.9 Chronic obstructive pulmonary disease, unspecified; E03.9 Hypothyroidism, unspecified; E66.01 Morbid (severe) obesity due to excess calories; E11.51 Type 2 diabetes mellitus with diabetic peripheral angiopathy without gangrene; K57.30 Diverticulosis of large intestine without perforation or abscess without bleeding; Z79.82 Long term (current) use of aspirin
CPT/HCPCS: 36415; 74250; 80053; 82948; 83036; 85027; 87040; 87086; 96361; 96374; A9270; C9113; G0378; G0379; J1650; J2270

== ENCOUNTER 2024-04-12 07:36 | Outpatient (CLI) | payer BC, SELFPAY ==
--- NOTE | ~2024-04-12 | MM_ITS ---
EXAMINATION: MM screening juliette BI w kobe HISTORY: Screening TECHNIQUE: Craniocaudal and mediolateral oblique 3-D tomosynthesis images were obtained and synthetic 2-D images were generated. CAD analysis was submitted and interpreted. COMPARISON: Comparison to multiple prior studies sequentially, with oldest reviewed study dated 08/22. BREAST PARENCHYMAL COMPOSITION: Not dense: There are scattered areas of fibroglandular density. FINDINGS: There is no evidence of suspicious mass, calcification, or architectural distortion to sugg est malignancy in either breast. There has been no suspicious interval change. IMPRESSION: 1. No mammographic evidence of malignancy. 2. Recommend routine screening mammography in one year. BI-RADS Category 1: Negative Reviewed, dictated and finalized at location B.
== END 2024-04-12 07:37 | disposition home or self-care (01) ==
LOC: ANHIMG 07:38
PROVIDERS: PCP Nurse Practitioner Family; Visit Provider Obstetrics & Gynecology
DX: Z12.31 Encounter for screening mammogram for malignant neoplasm of breast (principal)
CPT/HCPCS: 77063; 77067

== ENCOUNTER 2025-05-08 07:40 | Outpatient (CLI) | payer BC, SELFPAY ==
--- NOTE | ~2025-05-08 | MM_ITS ---
EXAMINATION: MM screening juliette BI w kobe HISTORY: Screening mammogram TECHNIQUE: Craniocaudal and mediolateral oblique 3-D tomosynthesis images were obtained and synthetic 2-D images were generated. CAD analysis was submitted and interpreted. COMPARISON: 04/12/2024, 03/30/2023 BREAST PARENCHYMAL COMPOSITION:Not Dense. There are scattered areas of fibroglandular density. FINDINGS: No suspicious mass, calcification, or architectural distortion are identified in either howard ast to suggest malignancy. There has been no suspicious interval change. IMPRESSION: No mammographic evidence of malignancy. Recommend routine screening mammography in one year. BI-RADS Category 1: Negative Reviewed, dictated and finalized at location .
--- OUTSIDE RECORDS SUMMARY | 2025-05-08 07:47 | XMS_ITS | Clinical Summary ---
Author Organization [facility] Address [address] [place] [address] Care Team Providers Care [employer] Name Role Phone Yovany Kumar MD Primary Care Provider [phone] Jo Ann Clarke MD Unavailable [phone] Allergies Active Allergy Reactions Criticality Noted Date Comments Adhesive Blisters High 06/12/2021 Medications spironolactone (ALDACTONE) 50 mg tablet spironolactone 50 mg tablet TAKE 2 TABLETS IN THE MORNING FOR 30 DAYS. Active naproxen (NAPROSYN) 500 mg tablet Take 1 tablet (500 mg total) by mouth 05/07/20 21 Active levothyroxine (SYNTHROID) 75 mcg tablet Synthroid 75 mcg tablet one tablet daily Active ergocalciferol (VITAMIN D) 50,000 unit capsule TAKE 1 CAPSULE ONCE WEEKLY 03/26/20 21 Active albuterol HFA (PROVENTIL HFA,VENTOLIN HFA,PROAIR HFA) 90 mcg/actuation inhaler INHALE 1 TO 2 PUFFS 4 TIMES A DAY NEEDED 05/07/20 21 Active estradioL (ESTRACE) 1 mg tablet Take 1 tablet (1 mg total) by mouth daily 08/26/20 21 Active cyanocobalamin (Vitamin B-12) 1,000 mcg/mL injection ADMINISTER 1 ML UNDER THE SKIN EVERY WEEK IN THE MORNING 12/23/[address] (NexIUM) 40 mg capsule Take 1 capsule (40 mg total) by mouth daily 10/17/19 23 Active nitroglycerin (Nitrostat) 0.4 mg SL tabletIndicati ons:acute episode of anginal pain Place 1 tablet (0.4 mg total) under the tongue every 5 (five) minutes as needed for chest pain 90 tablet 1 12/30/19 23 Active polyethylene glycol (MIRALAX) 17 gram/dose bulk powder MIX AND TAKE 17 GRAMS BY MOUTH EVERY DAY 07/08/20 23 Active mometasone-for moterol (DULERA 100) 100-5 mcg/actuation inhaler Inhale 2 puffs 2 (two) times a day Rinse mouth with water after use. Do not swallow. 1 each 11 07/10/20 23 Active Jardiance 25 mg tablet Take 1 tablet (25 mg total) by mouth daily 12/08/19 24 Active solifenacin (VESIcare) 10 mg tablet Take 1 tablet (10 mg total) by mouth daily 12/15/19 24 Active bisoprolol (ZEBETA) 5 mg tablet Take 1.5 tablets (7.5 mg total) by mouth daily 135 tablet 3 07/11/20 24 025 Active cholecalcifero l (VITAMIN D-3) 50,000 unit capsule 06/22/20 24 Active meloxicam (MOBIC) 15 mg tablet Take 1 tablet (15 mg total) by mouth daily 06/02/20 24 Active BD Luer-Lexy Syringe 3 mL 25 x 5/8 syringe USE TO INJECT B12 WEEKLY 06/02/20 24 Active doxycycline 100 mg tablet Take 1 tablet/capsule (100 mg total) by mouth 2 (two) times a day 07/07/20 24 Active naltrexone-bup ropion 8-90 mg tablet extended release Take 1 tablet by mouth 2 (two) times a day 30 tablet 11 10/24/19 25 026 Active Mounjaro 2.5 mg/0.5 mL pen injector injectionIndic ations:type 2 diabetes mellitus Inject 0.5 mL (2.5 mg total) under the skin every 7 days for 28 days 2 mL 11/24/19 25 Active Mounjaro 5 mg/0.5 mL pen injector injectionIndic ations:Type 2 diabetes mellitus with hyperglycemia, with long-term current use of insulin (HCC) Inject 0.5 mL (5 mg total) under the skin every 7 days 2 mL 5 12/24/19 025 Active rosuvastatin (CRESTOR) 10 mg tablet Take 1 tablet (10 mg total) by mouth nightly 90 tablet 3 02/28/20 026 Active sacubitriL-addi sartan (ENTRESTO) 24-26 mg tabletIndicati ons:chronic heart failure Take 1 tablet by mouth 2 (two) times a day 180 tablet 3 03/01/20 026 Active aspirin 81 mg chewable tablet Take 1 tablet (81 mg total) by mouth daily 90 tablet 3 04/10/20 026 Active hydroCHLOROthi azide (MICROZIDE) 12.5 mg capsule Take 1 capsule (12.5 mg total) by mouth daily 90 capsule 3 04/14/20 026 Active aspirin 81 mg chewable tablet Take 1 tablet (81 mg total) by mouth daily 90 tablet 3 03/21/20 025 Discontin ued(Reord er) hydroCHLOROthi azide (MICROZIDE) 12.5 mg capsule Take 1 capsule (12.5 mg total) by mouth daily 90 capsule 3 04/28/20 025 Discontin ued(Reord er) Hospital, Clinic, or Other Facility Administered Medication Ordered Dose Route Frequency Start Date End Date Status perflutren protein-a (OPTISON) 3 mL in sodium chloride 0.9% 8 mL syringe 1 - 8 mL IV Once in imaging 05/19/2024 Active Active Problems Problem Noted Date Diagnosed Date Morbid obesity with BMI of 50.0-59.9, adult /0 01/2025 Hypertension associated with diabetes 11/23/2024 Acquired hypothyroidism 11/23/2024 Diastolic dysfunction 12/29/2022 Overview (12/29/2022): Added automatically from request for surgery [id number] Chest pain 12/29/2022 Overview (12/29/2022): Added automatically from request for surgery [id number] Primary osteoarthritis of left knee 01/09/2022 Overview (01/09/2022): Added automatically from request for surgery [id number] Ingrowing toenail 07/15/2021 Type 2 diabetes mellitus without complication Urge incontinence of urine 06/12/2021 Benign neoplasm of thyroid gland 03/21/2009 Chronic obstructive pulmonary disease Surgical History Surgery Date Site/Laterality Comments FLUORO GUIDED INJECTION KNEE LEFT 06/21/2021 Left HYSTERECTOMY 09/21/2005 - 09/20/2006 THYROIDECTOMY 09/21/2008 - 09/20/2009 TONSILLECTOMY TUBAL LIGATION 09/21/1997 - 09/20/1998 SECTION x 4 Medical History Medical History Date Comments CHF (congestive heart failure) (HCC) Hypertension Thyroid disease Diabetes mellitus (HCC) GERD (gastroesophageal reflux disease) Arthritis Family History Medical History Relation Name Comments Heart attack Father Heart disease Father CABG Heart attack Sister Relation Name Status Comments Father Sister Social History Tobacco Use Types Packs/Day Years Used Date Smoking Tobacco: Never Smokeless Tobacco: Never Tobacco Cessation:Counseling Given: Not Answered AUDIT-C Answer Date Recorded Q1: How often do you have a drink containing alc ohol? Never 01/14/2023 Q2: How many drinks containi ng alcohol do you have on a typical day when you are drinking? 1 or 2 01/14/2023 Q3: How often do you have six or more drinks on one occasion? Never 01/14/2023 Personal Safety Answer Date Recorded Have you ever been in or are you currently in a harmful physical or emotional relationship or is someone making you feel afraid or unsafe? Denies 01/14/2023 Comments No Sex and Gender Information Value Date Recorded Sex Assigned at Not on file Legal Sex Female 7:42 PM ULTRASOUND SPEC Gender Identity Not on file Sexual Orientation Not on file Obstetrics History Last Filed Vital Signs Vital Sign Reading Time Taken Comments Blood Pressure 124/70 11/23/2024 8:21 AM ULTRASOUND SPEC Pulse 79 11/23/2024 8:21 AM ULTRASOUND SPEC Temperature 36.3 C (97.4 F) 07/27/2024 3:06 PM ULTRASOUND SPEC Respiratory Rate 16 11/23/2024 8:21 AM ULTRASOUND SPEC Oxygen Saturation 99% 10/24/2024 10:24 AM ULTRASOUND SPEC Inhaled Oxygen Concentration - - Weight 134.7 kg (297 lb) 11/23/2024 8:21 AM ULTRASOUND SPEC Height 160 cm (5' 3) 11/23/2024 8:21 AM ULTRASOUND SPEC Body Mass Index 52.61 11/23/2024 8:21 AM ULTRASOUND SPEC Plan of Treatment Health Maintenance Due Date Last Done Comments Breast Cancer Screening-Mammogram 1968 Colon Cancer Screening-Colonoscopy 1968 Depression Screening 1968 Hepatitis C Screening 1968 Dilated Eye Exam 1968 Foot Exam 1968 DTaP/Tdap/Td Vaccine (1 - Tdap) 1979 Hepatitis B Screening 1986 Regular Well Visit/Exam 18-64 1986 Pneumococcal vaccine <65 (1 of 2 - PCV) 1987 Zoster Vaccine (1 of 2) 2018 Covid-19 Vaccine (3 - 2023-2 5 season) 2024 12/25/2020, 11/27/2020 Lipid Panel 05/19/2025 05/19/2024, 05/1 09/2022, 01/07/2023 Influenza Vaccine (#1) 2025 Hemoglobin A1C 05/26/2025 11/23/2024, 02/0 11/2024, 05/19/2024, Additional history exists Albumin Creatinine Ratio, Urine 11/23/2025 eGFR 12/22/2025 12/22/2024, 02/0 11/2024, 05/19/2024, Additional history exists Procedures Procedure Name Priority Date/Time Associated Diagnosis Comments BASIC METABOLIC PANEL Routine 12/22/2024 8:39 AM CDT Elevated serum creatinine POCT HEMOGLOBIN A1C Routine 11/23/2024 8 :24 AM ULTRASOUND SPEC Type 2 diabetes mellitus with hyperglycemia, with long-term current use of insulin (HCC) ALBUMIN CREATININE RATIO, URINE Routine 11/23/2024 12:00 AM ULTRASOUND SPEC Type 2 diabetes mellitus with hyperglycemia, with long-term current use of insulin (HCC) LIPID PANEL Routine 05/19/2024 9:50 AM CDT Type 2 diabetes mellitus without complication, without long-term current use of insulin (HCC) from Last 3 Months or Most Recently Relevant to Health Maintenance Results * (ABNORMAL) Basic metabolic panel (12/22/2024 8:39 AM CDT) Glucose 107(H) 65 - 99 mg/dL [facility] Comment: Fasting reference interval For someone without known diabetes, a glucose value between 100 and 125 mg/dL is consistent with prediabetes and should be confirmed with a follow-up test. BUN 18 7 - 25 mg/dL [facility] Creatinine 1.18(H) 0.50 - 1.03 mg/dL [facility] eGFR 54(L) > OR = 60 mL/min/1.7 3m2 [facility] BUN/creat ratio 15 6 - 22 (calc) [facility] Sodium 138 135 - 146 mmol/L [facility] Potassium, pl 4.4 3.5 - 5.3 mmol/L [facility] Chloride 103 98 - 110 mmol/L [facility] CO2 29 20 - 32 mmol/L [facility] Calcium 10.0 8.6 - 10.4 mg/dL [facility] Blood 12/22/2024 8:39 AM CDT 12/22/2024 8:39 AM CDT Jo Ann Clarke MD LAB BLOOD ORDERABLES Fi nal Result [facility] [address] [facility] [place] [address] * POCT hemoglobin A1c (11/23/2024 8:24 AM ULTRASOUND SPEC) [facility] Hemoglobin A1C, POC 5.8 4.0 - 5.6 % Blood 11/23/2024 8:24 AM ULTRASOUND SPEC us Sung Salgado MD POINT OF CARE TEST ORDERABLES Final Result * Albumin Creatinine Ratio, Urine (11/23/2024 12:00 AM ULTRASOUND SPEC) [facility] Albumin Ur 23.0 mg/L Comment: Interpretive Data No reference range established. Current interpretive data was last revised 2019. Creatinine Ur 108.1 mg/dL [facility] Comment: Interpretive Data No reference range established. Current interpretive data was last revised 2019. Albumin Creatinine Ratio, Ur 21 1 - 29 mg/g [facility] Urine 11/23/2024 11/23/2024 1:0 8 PM ULTRASOUND SPEC Sung Salgado MD LAB URINE ORDERABLE S Final Result [facility] [address] Department [place] [address] * (ABNORMAL) Lipid panel (05/19/2024 9:50 AM CDT) Cholesterol 120 30 - 199 mg/dL Comment: Interpretive Data Ages < or = 19 years Acceptable: <170 mg/dL Borderline high: 170-199 mg/dL High: >or= 200 mg/dL Ages > or = 20 years Desirable: <200 mg/dL Borderline high: 200-239 mg/dL High: >or= 240 mg/dL Literature References: 1. Expert Panel on Integrated Guidelines for Cardiovascular Health and Risk Reduction in Children and Adolescents. Pediatrics 2011;128:S213 2. NCEP Expert Panel. Circulation 2004;110:227 Current Interpretive Data was last revised on 2018. Testing performed by: [facility], [address] [address], [place] [address] Triglycerides 191(H) <=149 mg/dL [facility] Comment: Interpretive Data Ages < or = 9 years Acceptable: <75 mg/dL Borderline high: 75-99 mg/dL High: >or= 100 mg/dL Ages 10 to 20 years Acceptable: <90 mg/dL Borderline high: 90-129 mg/dL High: >or= 130 mg/dL Ages > or = 20 years Desirable: <150 mg/dL Borderline high: 150-199 mg/dL High: 200-499 mg/dL Very high: >or= 499 mg/dL Literature References: 1. Expert Panel on Integrated Guidelines for Cardiovascular Health and Risk Reduction in Children and Adolescents. Pediatrics 2011;128:S213 2. NCEP Expert Panel. Circulation 2004;110:227 Current Interpretive Data was last revised on 2018. Testing performed by: [facility], [address], [place] [address] HDL 35(L) >=40 mg/dL [facility] Comment: Interpretive Data Ages < or = 19 years Acceptable: >45 mg/dL Borderline low: 40-45 mg/dL Low: <40 mg/dL Ages > or = 20 years Desirable: >or= 60 mg/dL Low: <40 mg/dL Literature References: 1. Expert Panel on Integrated Guidelines for Cardiovascular Health and Risk Reduction in Children and Adolescents. Pediatrics 2011;128:S213 2. NCEP Expert Panel. Circulation 2004;110:227 Current Interpretive Data was last revised on 2018. Testing performed by: [facility], [address] [place] [address] LDL, calculated 53 <=129 mg/dL [facility] Comment: Interpretive Data Ages < or = 19 years Acceptable: <110 mg/dL Borderline high: 110-129 mg/dL High: >or= 130 mg/dL Ages > or = 20 years Optimal: <100 mg/dL Near optimal: 100-129 mg/dL Borderline high: 130-159 mg/dL High: >160 mg/dL Calculated using the Roby LDL-C estimating equation. This equation was implemented on 2024. Prior to this date LDL-C was estimated using the Friedewald equation. Literature References: 1. Expert Panel on Integrated Guidelines for Cardiovascular Health and Risk Reduction in Children and Adolescents. Pediatrics 2011;128:S213 2. NCEP Expert Panel. Circulation 2004;110:227 3. Roby Lucero al. ADOLFO Cardiol. 2020 January 19;5(5):540-548. doi: 10.1001/jamacardio.2020.0013 Current Interpretive Data was last revised on 2024. Testing performed by: [facility], [address] [place], [place] [address] Non-HDL Cholesterol 85 mg/dL [facility] Comment: Interpretive Data Ages < or = 19 years Acceptable: <120 mg/dL Borderline high: 120-144 mg/dL High: >145 mg/dL Ages > or = 20 years When triglycerides are >200 mg/dL, Non-HDL cholesterol is a secondary target of therapy with treatment goals that are 30 mg/dL greater than the LDL cholesterol target. Literature References: 1. Expert Panel on Integrated Guidelines for Cardiovascular Health and Risk Reduction in Children and Adolescents. Pediatrics 2011;128:S213 2. NCEP Expert Panel. Circulation 2004;110:227 Current Interpretive Data was last revised on 2018. Testing performed by: [facility], [address] [place] [address] Chol/HDL ratio 3 [facility] Comment:Testing performed by : [facility], [address] [place] [address] Blood 05/19/2024 9:50 AM CDT 05/19/2024 10:20 AM CDT Jo Ann Clarke MD LAB BLOOD ORDERABLES nal Result [facility] [address] Department [place] [address] from Last 3 Months or Most Recently Relevant to Health Maintenance Insurance [facility] BLUE ACCESS PR BLUE ACCESS PR Advance Directives For more information, please contact: [phone] * Full Code (Latest Code Status on File) Date Activated Date Inactivated Comments 01/14/2023 3:02 PM 01/14/2023 8:42 PM Care Teams [employer] Relationship Specialty Start Date End Date Yovany Kumar MD [facility] [place] [address] PCP - General Family Medicine 06/02/23 Jo Ann Clarke MD [address] [address] Consulting Physician Cardiology 05/09/24
== END 2025-05-08 07:41 | disposition home or self-care (01) ==
LOC: ANHIMG 07:42
PROVIDERS: PCP Nurse Practitioner Family; Visit Provider Obstetrics & Gynecology
DX: Z12.31 Encounter for screening mammogram for malignant neoplasm of breast (principal)
CPT/HCPCS: 77063; 77067

== ENCOUNTER 2025-05-10 01:27 | Day surgery (SDC) | payer BC, SELFPAY ==
[2025-04-27 10:29] VITALS: BMI 53.2
[2025-05-10 06:51] VITALS: BP 126/88; PULSE 71; RESP 18; TEMP 36.2; O2SAT 100; BMI 52.9
[2025-05-10] MEDS: LACTATED RINGERS 1,000 ML 150 ML IV CONT (06:54)
--- NOTE | 2025-05-10 07:15 | WPDANESEPPF ---
Anes - Initial Pre Proc Eval Procedure: Operation Date: 05/10/25 07:45 Proposed Procedures p Esophagogastroduodenoscopy - Keven Sánchez MD Date/Time: 05/10/25 07:15 Surgeon: Keven Sánchez MD Pre Op Diagnosis: GERD Patient Data Age: 54 Gender: F Height: 1.6 m Weight: 135.4 kg Last Vital Signs Temp 36.2 C L 05/10/25 06:51 Pulse 71 05/10/25 06:51 Resp 18 05/10/25 06:51 BP 126/88 05/10/25 06:51 Pulse Ox 100 05/10/25 06:51 O2 Del Method Room Air 05/10/25 06:51 Allergies Allergy/AdvReac Type Severity Reaction Status Date / Time adhesive AdvReac Unknown RASH Verified 05/10/25 06:47 Home Medications ?Medication ?Instructions ?Recorded ?Confirmed ?Type albuterol sulfate 90 mcg/actuation 2 inh inhalation Q4H PRN shortness 07/04/22 04/27/25 Rx aerosol inhaler (Ventolin HFA) of breath or wheezing #6.7 grams ipratropium 0.5 mg-albuterol 3 mg 3 ml inhalation Q6H PRN shortness 07/04/22 04/27/25 Rx (2.5 mg base)/3 mL nebulization of breath or wheezing #90 mL soln hydrochlorothiazide 12.5 mg capsule 12.5 mg PO DAILY 01/20/24 05/10/25 History sacubitril 24 mg-valsartan 26 mg 1 tablet PO BID 01/20/24 05/10/25 History tablet (Entresto) aspirin 81 mg chewable tablet 81 mg PO DAILY 02/11/24 05/10/25 History (Aspirin Childrens) polyethylene glycol 3350 17 17 g PO DAILY 02/11/24 05/10/25 History gram/dose oral powder cyanocobalamin (vitamin B-12) 1,000 mcg subcut WEEKLY #12 mL 03/01/24 05/10/25 Rx 1,000 mcg/mL injection solution rosuvastatin 10 mg tablet 10 mg PO DAILY #90 tabs 04/20/24 05/10/25 Rx solifenacin 10 mg tablet (Vesicare) 10 mg PO DAILY #90 tabs 05/02/24 05/10/25 Rx cholecalciferol (vitamin D3) 1,250 1,250 mcg PO WEEKLY #12 caps 06/22/24 05/10/25 Rx mcg (50,000 unit) capsule syringe with needle 1 mL 25 gauge #12 ea 08/16/24 04/27/25 Rx x 5/8 (BD SafetyGlide Shielding Regular Bevel) bisoprolol fumarate 5 mg tablet 5 mg PO DAILY 12/07/24 05/10/25 History estradiol 1 mg tablet 1 mg PO DAILY #90 tabs 12/08/24 05/10/25 Rx esomeprazole magnesium 40 mg See Rx Instructions .Route 01/09/25 04/27/25 Rx capsule,delayed release .COMPLEX #30 caps Held on 04/27/25. Instructions: Order Change Synthroid 75 mcg tablet 75 mcg PO DAILY #90 tabs 03/02/25 05/10/25 Rx (levothyroxine) empagliflozin 25 mg tablet 25 mg PO DAILY #90 tabs 03/20/25 05/10/25 Rx (Jardiance) spironolactone 50 mg tablet 100 mg (2 x 50 mg) PO QAM #180 tabs 03/20/25 05/10/25 Rx rabeprazole 20 mg tablet,delayed See Rx Instructions .Route 03/27/25 05/10/25 Rx release .COMPLEX #60 tabs naproxen 500 mg tablet 500 mg PO BID PRN Pain (Scale 03/28/25 04/27/25 Rx Score 1-3) #60 tabs Laboratory Tests 05/10/25 07:06 POC Capillary Glucose 102 mg/dl (65-105) Patient hx anesthesia problems: none Family hx anesthesia problems: none Results Review: All pre-operative results and documents have been reviewed as part of the pre-operative evaluation. [facility] Past Medical History Medical History Pre-diabetes CHF (congestive heart failure) Obesity Weight loss counseling, encounter for Sciatica Diastolic HF (heart failure) Peripheral artery disease mild, AUBREY 11/27/22 COPD (chronic obstructive pulmonary disease) Hypothyroidism Hypertension Irritable bowel syndrome with constipation Sigmoid diverticulitis History of hypertension Diabetes Screening mammogram, encounter for Urinary incontinence Asthma Obesity, morbid, BMI 40.0-49.9 Surgical History Surgical History History of endoscopy H/O colonoscopy History of thyroidectomy 2008 History of tonsillectomy History of excision of mass 2012 - Excision of RUQ abdominal wall lipoma. History of dilatation and curettage 1996 for miscarriage History of tubal ligation 1997 History of partial hysterectomy 2006 supracervical hysterectomy Previous section 1988 1990 1995 1997 Family History Family History Father Hypertension Family history of chronic obstructive pulmonary disease Family history of diabetes mellitus in first degree relative Family history of heart disease in male family member before age 55 Asthma Mother Cerebrovascular accident Family history of heart disease in male family member before age 55 Grandparent Hypertension paternal grandmother maternal grandmother Cerebrovascular accident maternal grandmother Family history of heart disease in male family member before age 55 paternal grandmother maternal grandfather maternal grandmother Lung cancer paternal grandfather Breast cancer paternal grandmother Other Family history of allergic disorder Social History Social History Social History: Patient lives at home with her and children. She wishes to be a full code. She does not have a healthcare POA, but designates her to be medical decision maker if needed. Code status full code Smoking status: Never smoker Second hand tobacco smoke exposure: No Alcohol intake: current Drinks per week: 1 Alcohol use details: 1-2 times per month. Substance use: never Substance use type: does not use Do You Feel Safe in your Home?: Yes Lack of Transportation: No Lack of Food: Never True Current Housing: I Have Housing Concerned About Future Housing: No Difficulty Paying Gas/Electric Bills: YES Difficulty Paying for Meds: YES Currently Unemployed: No Education: Associate Degree Difficulty w/ Childcare or Family Care: No Living arrangements: other Additional living arrangements comments: spouse Occupation/Education: occupation Additional occupation/education comments: [employer] Gender identity (if verbalized by the patient): Female Sexual Orientation (if Verbalized by the Patient): Straight or Heterosexual Spiritual care concerns: No Anes - Eval Final PreProcedure Day of Procedure 05/10/25 07:15 Patient weight: morbidly obese Heart: regular rate and rhythm Lungs: clear to auscultation Airway: Mallampati scale class II Neurological: alert and oriented Last oral intake: >/= 8 hours ASA classification: III Emergent: no Anesthetic plan: proceed Anesthesia type and monitoring: general GIVS and standard monitoring Results Review: All pre-operative results and documents have been reviewed as part of the pre-operative evaluation. Informed Consent: The patient's anesthetic plan and its attendant risks and benefits were discussed with the patient/family/POA. Questions were solicited and answers provided to the satisfaction of the patient/family/POA.
[2025-05-10] MEDS: BENZOCAINE (*SP) 60 ML SPRAY CAN (HURRICAINE) 1 SPRAY MUCOUS MEM (07:47)
--- NOTE | 2025-05-10 07:49 | PM.HPGS ---
History of Present Illness History of Present Illness Consent: Risks, benefits, and alternatives have been discussed and questions answered. Patient agrees to proceed with procedure. Chief complaint: GERD Narrative: Ginger Delgado is a 54 year old female with gerd on ppi Review of Systems Review of Systems: All systems reviewed & are unremarkable except as noted in HPI and below PMFSH Past Medical History Medical History Pre-diabetes CHF (congestive heart failure) Obesity Weight loss counseling, encounter for Sciatica Diastolic HF (heart failure) Peripheral artery disease mild, AUBREY 11/27/22 COPD (chronic obstructive pulmonary disease) Hypothyroidism Hypertension Irritable bowel syndrome with constipation Sigmoid diverticulitis History of hypertension Diabetes Screening mammogram, encounter for Urinary incontinence Asthma Obesity, morbid, BMI 40.0-49.9 Surgical History Surgical History History of endoscopy H/O colonoscopy History of thyroidectomy 2008 History of tonsillectomy History of excision of mass 2012 - Excision of RUQ abdominal wall lipoma. History of dilatation and curettage 1996 for miscarriage History of tubal ligation 1997 History of partial hysterectomy 2006 supracervical hysterectomy Previous section 1989 1991 1996 1997 Family History Family History Father Hypertension Family history of chronic obstructive pulmonary disease Family history of diabetes mellitus in first degree relative Family history of heart disease in male family member before age 55 Asthma Mother Cerebrovascular accident Family history of heart disease in male family member before age 55 Grandparent Hypertension paternal grandmother maternal grandmother Cerebrovascular accident maternal grandmother Family history of heart disease in male family member before age 55 paternal grandmother maternal grandfather maternal grandmother Lung cancer paternal grandfather Breast cancer paternal grandmother Other Family history of allergic disorder Social History Social History Social History: Patient lives at home with her and children. She wishes to be a full code. She does not have a healthcare POA, but designates her to be medical decision maker if needed. Code status full code Smoking status: Never smoker Second hand tobacco smoke exposure: No Alcohol intake: current Drinks per week: 1 Alcohol use details: 1-2 times per month. Substance use: never Substance use type: does not use Do You Feel Safe in your Home?: Yes Lack of Transportation: No Lack of Food: Never True Current Housing: I Have Housing Concerned About Future Housing: No Difficulty Paying Gas/Electric Bills: YES Difficulty Paying for Meds: YES Currently Unemployed: No Education: Associate Degree Difficulty w/ Childcare or Family Care: No Living arrangements: other Additional living arrangements comments: spouse Occupation/Education: occupation Additional occupation/education comments: [employer] Gender identity (if verbalized by the patient): Female Sexual Orientation (if Verbalized by the Patient): Straight or Heterosexual Spiritual care concerns: No Meds Home Medications and Allergies Home Medications ?Medication ?Instructions ?Recorded ?Confirmed ?Type albuterol sulfate 90 mcg/actuation 2 inh inhalation Q4H PRN shortness 07/04/22 04/27/25 Rx aerosol inhaler (Ventolin HFA) of breath or wheezing #6.7 grams ipratropium 0.5 mg-albuterol 3 mg 3 ml inhalation Q6H PRN shortness 07/04/22 04/27/25 Rx (2.5 mg base)/3 mL nebulization of breath or wheezing #90 mL soln hydrochlorothiazide 12.5 mg capsule 12.5 mg PO DAILY 01/20/24 05/10/25 History sacubitril 24 mg-valsartan 26 mg 1 tablet PO BID 01/20/24 05/10/25 History tablet (Entresto) aspirin 81 mg chewable tablet 81 mg PO DAILY 02/11/24 05/10/25 History (Aspirin Childrens) polyethylene glycol 3350 17 17 g PO DAILY 02/11/24 05/10/25 History gram/dose oral powder cyanocobalamin (vitamin B-12) 1,000 mcg subcut WEEKLY #12 mL 03/01/24 05/10/25 Rx 1,000 mcg/mL injection solution rosuvastatin 10 mg tablet 10 mg PO DAILY #90 tabs 04/20/24 05/10/25 Rx solifenacin 10 mg tablet (Vesicare) 10 mg PO DAILY #90 tabs 05/02/24 05/10/25 Rx cholecalciferol (vitamin D3) 1,250 1,250 mcg PO WEEKLY #12 caps 06/22/24 05/10/25 Rx mcg (50,000 unit) capsule syringe with needle 1 mL 25 gauge #12 ea 08/16/24 04/27/25 Rx x 5/8 (BD SafetyGlide Shielding Regular Bevel) bisoprolol fumarate 5 mg tablet 5 mg PO DAILY 12/07/24 05/10/25 History estradiol 1 mg tablet 1 mg PO DAILY #90 tabs 12/08/24 05/10/25 Rx esomeprazole magnesium 40 mg See Rx Instructions .Route 01/09/25 04/27/25 Rx capsule,delayed release .COMPLEX #30 caps Held on 04/27/25. Instructions: Order Change Synthroid 75 mcg tablet 75 mcg PO DAILY #90 tabs 03/02/25 05/10/25 Rx (levothyroxine) empagliflozin 25 mg tablet 25 mg PO DAILY #90 tabs 03/20/25 05/10/25 Rx (Jardiance) spironolactone 50 mg tablet 100 mg (2 x 50 mg) PO QAM #180 tabs 03/20/25 05/10/25 Rx rabeprazole 20 mg tablet,delayed See Rx Instructions .Route 03/27/25 05/10/25 Rx release .COMPLEX #60 tabs naproxen 500 mg tablet 500 mg PO BID PRN Pain (Scale 03/28/25 04/27/25 Rx Score 1-3) #60 tabs Allergies Allergy/AdvReac Type Severity Reaction Status Date / Time adhesive AdvReac Unknown RASH Verified 05/10/25 06:47 Vital Signs Vital Signs - 24 hr 05/10/25 06:51 Temperature 97.2 F L Pulse Rate 71 Respiratory Rate 18 Blood Pressure 126/88 Pulse Oximetry 100 Oxygen Delivery Room Air Exam Const: General: comfortable, no acute distress and obese HENMT: Face/Nose/Sinus: Normal nares present Eyes: General: appearance normal, both eyes and all related structures Neck: Neck: no JVD Resp: Auscultation: clear to auscultation bilaterally Cardio: Rate: regular rate Rhythm: regular rhythm GI: Inspection: non-distended GI Palp: Yes Soft to palpation Skin: General skin exam: normal color Neuro: Speech: normal speech Extrem: General: normal to inspection Psych: Mental Status: mental status grossly normal Assessment and Plan Assessment and plan (1) GERD (gastroesophageal reflux disease): Qualifiers: Esophagitis presence: without esophagitis Qualified Code(s): K21.9 - Gastro-esophageal reflux disease without esophagitis Code(s): K21.9 - Gastro-esophageal reflux disease without esophagitis Status: Acute Assessment and Plan: egd with bx (2) Obesity, morbid, BMI 40.0-49.9: Code(s): E66.01 - Morbid (severe) obesity due to excess calories Status: Chronic
[2025-05-10 07:51] VITALS: BP 99/58; PULSE 69; RESP 20; O2SAT 94
--- NOTE | 2025-05-10 07:51 | S_PTH ---
PATIENT: Ginger Delgado LOC: [facility] Sal[facility]#:[id number] AGE/SX: 54/F ROOM: RE05/10/[address]: Keven Sánchez MD : 1970 BED: DIS: 05/10/2025 SPEC #: [id number] RECD: 05/10/25 10:07 STATUS: DEX REDominik #: [id number] NIKKI: 05/10/25 07:[address]: Keven Sánchez DEPT: [facility] Surgical RECD BY: Breonna Greenberg ENTERED: 05/10/25 10:08 SP TYPE: Surgical OTHR DR: Mary Padron APRN Tissues: A - Gastric Biopsy Procedures: Hematoxylin and Eosin Stain Gross and Microscopic Level 4
[2025-05-10 08:01] VITALS: BP 101/55; PULSE 70; RESP 19; O2SAT 100
[2025-05-10 08:11] VITALS: BP 93/54; PULSE 68; RESP 21; O2SAT 100
== END 2025-05-10 08:20 | disposition home or self-care (01) ==
PROVIDERS: PCP Nurse Practitioner Family; Referring Provider Nurse Practitioner; Visit Provider Internal Medicine Gastroenterology
PROC: 0DJ08ZZ Inspection of Upper Intestinal Tract, Via Natural or Artificial Opening Endoscopic (ICD-10-PCS; CPT 43239; principal; 2025-05-10 07:45)
DX: K21.9 Gastro-esophageal reflux disease without esophagitis (principal); K29.50 Unspecified chronic gastritis without bleeding; K44.9 Diaphragmatic hernia without obstruction or gangrene; E03.9 Hypothyroidism, unspecified; E11.9 Type 2 diabetes mellitus without complications; K58.1 Irritable bowel syndrome with constipation; I11.0 Hypertensive heart disease with heart failure; I50.30 Unspecified diastolic (congestive) heart failure; J44.9 Chronic obstructive pulmonary disease, unspecified; R32 Unspecified urinary incontinence; I73.9 Peripheral vascular disease, unspecified; E66.01 Morbid (severe) obesity due to excess calories; Z68.43 Body mass index [BMI] 50.0-59.9, adult; Z79.51 Long term (current) use of inhaled steroids; Z79.82 Long term (current) use of aspirin; Z79.84 Long term (current) use of oral hypoglycemic drugs; Z79.1 Long term (current) use of non-steroidal anti-inflammatories (NSAID); Z98.890 Other specified postprocedural states; Z98.51 Tubal ligation status; Z87.19 Personal history of other diseases of the digestive system; Z80.1 Family history of malignant neoplasm of trachea, bronchus and lung; Z80.3 Family history of malignant neoplasm of breast; Z82.49 Family history of ischemic heart disease and other diseases of the circulatory system
CPT/HCPCS: 43239; 82948; 88305; J2003; J2704; J7120

== ENCOUNTER 2025-09-19 08:17 | Outpatient (CLI) | payer BC, SELFPAY ==
--- NOTE | ~2025-09-19 | NM_ITS ---
EXAM: NM gastric emptying study DATE: 09/19/2025 13:04 INDICATION: Refractory gastroesophageal reflux disease. TECHNIQUE: A gastric emptying study was performed using the methodology of Santiago CLEMENTS, et al. J Nucl Med 2007; 48:568-572. The patient was given a meal consisting of 2 scrambled eggs labeled with 0.970 mCi Tc-99m sulfur colloid, 2 slices of toast, two packages of jam, and approximately 120 mL of water. Simultaneous anterior and posterior 1-min images of the abdomen were obtained with the patient supine at multiple time points over a total period of 4 hours. The geometric mean of anterior and posterior views was determined, and the percentage retention was calculated for each time point. COMPARISON: CT abdomen and pelvis 02/11/2024 FINDINGS: Gastric retention of the radiotracer-labeled meal was 48%, 45%, and 4% at the 1-hour, 2-hour, and 4-hour time points, respectively. With this technique, apparent rapid gastric emptying is suggested by <30% gastric retention at 1 hour. Delayed gastric emptying is defined by gastric retention of >90% at 1 hour, >60% retention at 2 hours, or >10% retention at 4 hours. IMPRESSION: 1. Normal gastric emptying. Reviewed, dictated and finalized at location E. SITTING IMPRESSION: 1. Normal gastric emptying.
--- OUTSIDE RECORDS SUMMARY | 2025-09-19 08:26 | XMS_ITS | Clinical Summary ---
Author Organization [facility] Address [address] [place] [address] Care Team Providers Care Carbide Tool Maker Name Role Phone Yovany Kumar MD Primary Care Provider [phone] Jo Ann Clarke MD Unavailable Kate Madden Unavailable Unavailable Allergies Active Allergy Reactions Criticality Noted Date [...] 23 Active nitroglycerin (Nitrostat) 0.4 mg SL tabletIndicatio ns:acute episode of anginal pain Place 1 tablet (0.4 mg total) under the tongue every 5 (five) minutes as needed for chest pain 90 tablet 1 12/30/19 23 Active Additional Information Patient not taking.Reported on 07/26/2025 polyethylene glycol (MIRALAX) 17 gram/dose bulk powder MIX AND TAKE 17 GRAMS BY MOUTH EVERY DAY 07/08/20 23 Active mometasone-form oterol (DULERA 100) 100-5 mcg/actuation inhaler Inhale 2 puffs 2 (two) times a day Rinse mouth with water after use. Do not swallow. 1 each 07/10/20 23 Active Jardiance 25 mg tablet Take 1 tablet (25 mg total) by mouth daily 12/08/19 24 Active solifenacin (VESIcare) 10 mg tablet Take 1 tablet (10 mg total) by mouth daily 12/15/19 24 Active cholecalciferol (VITAMIN D-3) 50,000 unit capsule 06/22/20 24 Active BD Luer-Lexy Syringe 3 mL 25 x 5/8 syringe USE TO INJECT B12 WEEKLY 06/02/20 24 Active naltrexone-bupr opion 8-90 mg tablet extended release Take 1 tablet by mouth 2 (two) times a day 30 tablet 11 10/24/19 25 026 Active rosuvastatin (CRESTOR) 10 mg tablet Take 1 tablet (10 mg total) by mouth nightly 90 tablet 3 02/28/20 25 026 Active aspirin 81 mg chewable tablet Take 1 tablet (81 mg total) by mouth daily 90 tablet 3 04/10/20 25 026 Active hydroCHLOROthia zide (MICROZIDE) 12.5 mg capsule Take 1 capsule (12.5 mg total) by mouth daily 90 capsule 3 04/14/20 25 026 Active bisoprolol (ZEBETA) 5 mg tablet Take 1.5 tablets (7.5 mg total) by mouth daily 135 tablet 3 06/21/20 25 026 Active cephalexin (KEFLEX) 500 mg capsule Take 1 capsule (500 mg total) by mouth 3 (three) times a day 07/20/[address] (ACIPHEX) 20 mg EC tablet Take 1 tablet (20 mg total) by mouth 2 (two) times a day 07/10/20 Active albuterol 2.5 mg /3 mL (0.083 %) nebulizer solutionIndicat ions:Chronic obstructive pulmonary disease, unspecified COPD type (HCC) Take 3 mL (2.5 mg total) by nebulization 4 (four) times a day as needed for wheezing or shortness of breath 300 mL 5 07/26/20 25 026 Active sacubitriL-vals saroj (ENTRESTO) 24-26 mg tabletIndicatio ns:chronic heart failure Take 1 tablet by mouth 2 (two) times a day 180 tablet 3 08/14/20 25 026 Active Hospital, Clinic, or Other Facility Administered Medication Ordered Dose Route Frequency Start Date End Date Status perflutren protein-a (OPTISON) 3 mL in sodium chloride 0.9% 8 mL syringe 1 - 8 mL IV Once in imaging 05/19/2024 Active Active Problems Problem Noted Date Diagnosed Date Morbid obesity with BMI of 50.0-59.9, adult 01/2025 Hypertension associated with diabetes 11/23/2024 Acquired hypothyroidism 11/23/2024 Diastolic dysfunction 12/29/2022 Overview (12/29/2022): Added automatically from request for surgery [id number] Chest pain 12/29/2022 Overview (12/29/2022): Added automatically from request for surgery [id number] Primary osteoarthritis of left knee 01/09/2022 Overview (01/09/2022): Added automatically from request for surgery [id number] Ingrowing toenail 07/15/2021 Type 2 diabetes mellitus without complication Urge incontinence of urine 06/12/2021 Benign neoplasm of thyroid gland 03/21/2009 Chronic obstructive pulmonary disease Encounters Date Type Department Care Team Description 08/14/2025 Telephone [facility] Transplant Heart [address] [id number] [place] [address] Kate Madden 07/26/2025 3:00 PM TRAVEL MONEY ADVISOR Office Visit [facility] Medicine Pulmonary [address] [facility] [address] [place] [address] [place] [address] Syed Ruth MD Chronic obstructive pulmonary disease, unspecified COPD type (HCC) (Primary Dx); Class 3 severe obesity due to excess calories without serious comorbidity with body mass index (BMI) of 50.0 to 59.9 in adult; Post-COVID syndrome 07/26/2025 2:00 PM TRAVEL MONEY ADVISOR - 07/26/2025 11:59 PM TRAVEL MONEY ADVISOR Hospital Encounter [facility] Medicine Pulmonary [address] [facility] [address] [place] [address] Chronic obstructive pulmonary disease, unspecified COPD type (HCC) Discharge Disposition: Discharge to home or self care from Last 3 Months Surgical History Surgery Date Site/Laterality Comments FLUORO GUIDED INJECTION KNEE LEFT 06/21/2021 Left HYSTERECTOMY 09/21/2005 - 09/20/2006 THYROIDECTOMY 09/21/2008 - 09/20/2009 TONSILLECTOMY TUBAL LIGATION 09/21/1997 - 09/20/1998 SECTION x 4 Medical History Medical History Date Comments CHF (congestive heart failure) (HCC) Hypertension Thyroid disease Diabetes mellitus GERD (gastroesophageal reflux disease) Arthritis Family History [...] on file Legal Sex Female 7:42 PM TRAVEL MONEY ADVISOR Gender Identity Not on file Sexual Orientation Not on file Last Filed Vital Signs Vital Sign Reading Time Taken Comments Blood Pressure 113/75 07/26/2025 2:55 PM TRAVEL MONEY ADVISOR RLE Pulse 84 07/26/2025 2:55 PM TRAVEL MONEY ADVISOR Temperature 36.4 C (97.5 F) 07/26/2025 2:55 PM TRAVEL MONEY ADVISOR Respiratory Rate 18 07/26/2025 2:55 PM TRAVEL MONEY ADVISOR Oxygen Saturation 95% 07/26/2025 2:55 PM TRAVEL MONEY ADVISOR Inhaled Oxygen Concentration - - Weight 136.5 kg (301 lb) 07/26/2025 2:55 PM TRAVEL MONEY ADVISOR Height 160 cm (5' 3) 07/26/2025 2:55 PM TRAVEL MONEY ADVISOR Body Mass Index 53.32 07/26/2025 2:55 PM TRAVEL MONEY ADVISOR Plan of Treatment Health Maintenance Due Date Last Done Comments Breast Cancer Screening-Mammogram 1968 Colon Cancer Screening-Colonoscopy 1968 Depression Screening 1968 Hepatitis C Screening 1968 Foot Exam 1968 DTaP/Tdap/Td Vaccine (1 - Tdap) 1979 Hepatitis B Screening 1986 Regular Well Visit/Exam 18-64 1986 Pneumococcal vaccine <65 (1 of 2 - PCV) 1987 Zoster Vaccine (1 of 2) 2018 Covid-19 Vaccine (4 - 2024-2 6 season) 2025 08/27/2021, 12/25/2020, 11/27/2020 Influenza Vaccine (#1) 2025 Albumin Creatinine Ratio, Urine 11/23/2025 Hemoglobin A1C 12/03/2025 06/05/2025, 03/0 01/2025, 10/24/2024, Additional history exists Dilated Eye Exam 12/20/2025 12/20/2024 Lipid Panel 06/05/2026 06/05/2025, 08/2 05/2024, 01/29/2023, Additional history exists eGFR 06/05/2026 06/05/2025, 04/0 11/2024, 10/24/2024, Additional history exists Procedures Procedure Name Priority Date/Time Associated Diagnosis Comments PULMONARY FUNCTION TEST (PFT) Routine 07/26/2025 2:40 PM TRAVEL MONEY ADVISOR Chronic obstructive pulmonary disease, unspecified COPD type (HCC) EGFR Routine 06/05/2025 9:12 AM CDT Type 2 diabetes mellitus with hyperglycemia, with long-term current use of insulin (HCC) Stage 3a chronic kidney disease (HCC) LIPID PANEL Routine 06/05/2025 9:12 AM CDT Type 2 diabetes mellitus with hyperglycemia, with long-term current use of insulin (HCC) POCT HEMOGLOBIN A1C Routine 06/05/2025 8 :37 AM CDT Type 2 diabetes mellitus with hyperglycemia, with long-term current use of insulin (HCC) HM DIABETES EYE EXAM Routine 12/20/2024 7:51 AM CDT ALBUMIN CREATININE RATIO, URINE Routine 11/23/2024 12:00 AM TRAVEL MONEY ADVISOR Type 2 diabetes mellitus with hyperglycemia, with long-term current use of insulin (HCC) from Last 3 Months or Most Recently Relevant to Health Maintenance Results * Pulmonary Function Test - (07/26/2025 2:40 PM TRAVEL MONEY ADVISOR) Pathologist [facility] FVC PRE 3.15 L [facility] FVC %PRE PRED 107 % [facility] FEV1 PRE 2.68 L [facility] FEV1 %PRE PRED 113 % [facility] FEV1/FVC PRE 85.3 % [facility] Anatomical Region Laterality Modality PFT 07/26/2025 2:12 PM TRAVEL MONEY ADVISOR Narrative 07/26/2025 5:29 PM TRAVEL MONEY ADVISOR Table formatting from the original result was not included. [facility] Division of Pulmonary & Critical Care Medicine [address] [place] [address]; [facility]; [place] [id number]; [phone] Pulmonary Function Laboratory Pulmonary Stress Test Simple/Oxygen Assessment Patient: Ginger Deglado Date: 07/26/2025 : 1970 Ht: 63 IN Wt: 301 LBS Time (min) Distance (ft)/ Lerma O2 L/M SpO2 HR Milagros* BP FEV1 % Pred Rest: RA 98 78 1 101/60 2.68 113 % Walk/Bike: 1 RA 98 112 1 2 RA 99 122 2 3 RA 99 130 3 4 RA 99 138 4 5 RA 99 136 5 6 min 0 sec RA 98 135 6 Recovery: 1 RA 100 104 2 115/69 2.59 109% 3 RA 100 94 0.5 *Milagros rate of perceived exertion (1-10 dyspnea scale) Maciel, CHEST 2003; 123:1408 Walk Test Summary: Six Minute Walk Distance: 1050 ft Oxygen required to maintain SpO2 greater than 90% during six minutes of walkin L/M Comments: O2A- 0 STOPS Interpretation: Breathing room air, SpO2 is normal at rest and during exercise sufficient to increase pulse, SpO2 is stable. On this basis, SpO2 is adequate at rest breathing room air and while walking breathing room air. This level of exercise is associated with no significant change of FEV1. By signing this report, the attending pulmonary physician certifies that he/she has personally reviewed and interpreted the graphic and numerical data associated with this pulmonary function study and has reviewed and /or edited a preliminary draft report and agrees with the written final report. PFT performed at:->[facility] Adult PFT Lab- [id number] Procedure:->Spirometry Procedure:->Oxygen Assessment Titration Pulmonary Function Test Interpretation SPIROMETRY: Spirometry is normal. The flow volume loop is normal. Impression: There is no ventilatory defect. Compared with most recent study, there has been no significant interval change. The attending pulmonary physician certifies a physician presence in the [facility] Suite during the administration of aerosolized bronchodilator. The attending pulmonary physician certifies that he/she has reviewed and interpreted the graphic and numerical data of this pulmonary function study and agrees with the written final report. The lower limit of normal for PaO2 and %HbO2 is age dependent. However, the [facility] Pulmonary Function Laboratory defines hypoxemia as a PaO2 <56 mm Hg or a %HbO2 <89%. Starting on September of 2024 the [facility] Pulmonary Function Laboratory utilizes race neutral GLI Global normative equations. us Syed Suárez MD PFT ORDERABLES Fin al Result * (ABNORMAL) eGFR (06/05/2025 9:12 AM CDT) [facility] eGFR 47(L) >=60 mL/min/1. 73 m2 Comment: Interpretive Data Reference Interval Normal >/= 90 mL/min/1.73m2 Mildly decreased* 60 - 89 mL/min/1.73m2 Mildly to moderately decreased 45 - 59 mL/min/1.73m2 Moderately to severely decreased 30 - 44 mL/min/1.73m2 Severely decreased 15 - 29 mL/min/1.73m2 Kidney Failure < 15 mL/min/1.73m2 *Relative to young adult level Estimated glomerular filtration rate is determined by the 2020 CKD-EPI equation recommended by the National Kidney Foundation (A Unifying Approach to GFR Estimation: Recommendations of the NKF-ASK Task Force on Reassessing the Inclusion of Race in Diagnosing Kidney Disease, JASN 2020). The CKD-EPI equation should not be used for patients with unstable renal function and has not been validated in children and those over 70. Current interpretive data was last reviewed 2021. Blood 06/05/2025 9:12 AM CDT 06/05/2025 11:24 AM CDT us Sung Salgado MD LAB BLOOD ORDERABLE S Final Result [facility] [address] [facility] Department [place] [address] * (ABNORMAL) Lipid panel (06/05/2025 9:12 AM CDT) Cholesterol 118 30 - 199 mg/dL Comment: Interpretive Data [...] Interpretive Data was last revised on 2018. Triglycerides 151(H) <=149 mg/dL [facility] PATEL Comment: Interpretive Data Ages < or = [...] Interpretive Data was last revised on 2018. HDL 32(L) >=40 mg/dL [facility] Comment: Interpretive Data Ages < or = [...] Interpretive Data was last revised on 2018. LDL, calculated 60 <=129 mg/dL [facility] Comment: Interpretive Data Ages < or = [...] NCEP Expert Panel. Circulation 2004;110:227 3. Roby Nam et al. ADOLFO Cardiol. 2020 January 19;5(5):540-548. doi: 10.1001/jamacardio.2020.0013 Current Interpretive Data was last revised on 2024. Non-HDL Cholesterol 86 mg/dL [facility] Comment: Interpretive Data Ages < or = [...] Interpretive Data was last revised on 2018. Chol/HDL ratio 4 [facility] Blood 06/05/2025 9:12 AM CDT 06/05/2025 11:24 AM CDT Sung Salgado MD LAB BLOOD ORDERABLE S Final Result [facility] Department [place] [address] * (ABNORMAL) POCT hemoglobin A1c (06/05/2025 8:37 AM CDT) Hemoglobin A1C, POC 5.8(A) 4.0 - 5.6 % Blood 06/05/2025 8:37 AM CDT Sung Salgado MD POINT OF CARE TEST ORDERABLES Final Result * DIABETES EYE EXAM (12/20/2024 7:51 AM CDT) Historical Provider HEALTH MAINTENANCE Final Result * Albumin Creatinine Ratio, Urine (11/23/2024 12:00 AM TRAVEL MONEY ADVISOR) Albumin Ur 23.0 mg/L Comment: Interpretive Data No reference range established. Current interpretive data was last revised 2019. Creatinine Ur 108.1 mg/dL [facility] ORDAZ Comment: Interpretive Data No reference range established. Current interpretive data was last revised 2019. Albumin Creatinine Ratio, Ur 21 1 - 29 mg/g [facility] ORDAZ Urine 11/23/2024 11/23/2024 1:0 8 PM TRAVEL MONEY ADVISOR Sung Salgado MD LAB URINE ORDERABLE S Final Result [facility] [address] Department [place] [address] from Last 3 Months or Most Recently Relevant to Health Maintenance Insurance [employer] [employer] [place] [employer] [place] Direct[place] For more information, please contact: [phone] * Full Code (Latest Code Status on File) Date Activated Date Inactivated Comments 01/14/2023 3:02 PM 01/14/2023 8:42 PM Care Teams Carbide Tool Maker Relationship Specialty Start Date End Date Yovany Kumar MD [address] [place] [id number] PCP - General Family Medicine 06/02/23 Jo Ann Clarke MD [address] [address] Consulting Physician Cardiology 05/09/24 Kate Madden Primary Cadd Operator 06/08/25
--- OUTSIDE RECORDS SUMMARY | 2025-09-19 08:26 | XMS_ITS | Clinical Summary ---
Author Organization [facility] Address [address] [place] [address] Care Team Providers Care Armed Custom Protection Officer Name Role Phone Ramez Leyva MD Primary Care Provider Allergies Active Allergy Reactions Criticality Noted Date Comments Tape Rash High 06/12/2021 Medications No known medications Active Problems No known active problems Social History Tobacco Use Types Packs/Day Years Used Date Smoking Tobacco: Never Smokeless Tobacco: Never Tobacco Cessation:Counseling Given: Not Answered Comments No Sex and Gender Information Value Date Recorded Sex Assigned at Not on file Legal Sex Female 7:02 PM CDT Gender Identity Not on file Sexual Orientation Not on file Last Filed Vital Signs Vital Sign Reading Time Taken Comments Blood Pressure 131/80 11/21/2023 12:30 PM SKETCH MAKER Pulse 77 11/21/2023 12:30 PM SKETCH MAKER Temperature 36.5 C (97.7 F) 11/21/2023 12:30 PM SKETCH MAKER Respiratory Rate 22 11/21/2023 12:30 PM SKETCH MAKER Oxygen Saturation 96% 11/21/2023 12:30 PM SKETCH MAKER Inhaled Oxygen Concentration - - Weight 127 kg (280 lb) 11/21/2023 9:56 AM SKETCH MAKER Height 160 cm (5' 3) 11/21/2023 9:56 AM SKETCH MAKER Body Mass Index 49.6 11/21/2023 9:56 AM SKETCH MAKER Plan of Treatment Health Maintenance Due Date Last Done Comments Colorectal Cancer Screening Colonoscopy (10 Years) 1968 Annual Physical 1971 Hepatitis C 1986 DTaP, Tdap and Td Vaccines ( 1 - Tdap) 1987 Hepatitis B Vaccines (1 of 3 - 19+ 3-dose series) 1987 Mammogram Screening 2008 Pneumococcal Vaccine: 50+ Years (1 of 1 - PCV) 2018 Zoster Vaccines (1 of 2) 2018 COVID-19 Vaccine (3 - 2024-2 6 season) 2025 12/25/2020, 11/27/2020 Influenza Adult (#1) 2025 Hepatitis A Vaccines Aged Out No long er eligible based on patient's age to complete this topic Meningococcal B Vaccine Aged Out No l onger eligible based on patient's age to complete this topic Meningococcal Vaccine Aged Out No ailyn cheli eligible based on patient's age to complete this topic RSV Immunizations Under 20 Months Aged Out No longer eligible b ased on patient's age to complete this topic Insurance Care Teams Armed Custom Protection Officer Relationship Specialty Start Date End Date Ramez Leyva MD PCP - General 09/10/16
== END 2025-09-19 08:18 | disposition home or self-care (01) ==
PROVIDERS: PCP Nurse Practitioner Family; Visit Provider Nurse Practitioner
DX: K21.9 Gastro-esophageal reflux disease without esophagitis (principal)
CPT/HCPCS: 78264; A9541